=== PATIENT | female | born 1980 | race Caucasian/White ===

== ENCOUNTER 2017-03-06 09:37 | Emergency (ER) | payer MEDICAID, OTHER ==
[~2017-03-06] VITALS: Ht 154.9 cm; Wt 38.4 kg
[~2017-03-06 09:37] MED LIST: FOLI1 PO; LASI20TA PO; LEVE250 PO; METO25TA6 PO; SPIR50 PO; THIA100T PO
[2017-03-06 09:43] VITALS: BP 114/70; PULSE 116; RESP 16; TEMP 98.5; O2SAT 96
[2017-03-06] MEDS ORDERED: ALBU6.7H INH (10:05)
[2017-03-06] MEDS ORDERED: METO25TA3 PO (10:05)
[2017-03-06] MEDS ORDERED: LEVE250T5 PO (10:05)
[2017-03-06] MEDS ORDERED: LIDOCAINE HCL 2% 50 ML VIAL ONE (10:11)
[2017-03-06] MEDS ORDERED: LIDOCAINE 1%/EPINEPHrine 1:100,000 SOLN 20 ML VIAL INFIL ONE (10:15)
[2017-03-06] MEDS ORDERED: BACT800T5 PO (10:29)
[2017-03-06] MEDS ORDERED: ULTR50TA5 PO (10:29)
--- NOTE | 2017-03-06 10:30 | PD ---
HPI . Cyst Chief Complaint: Skin Problem Time Seen by Provider: 10:08 Travel History International Travel<30 days: No Contact w/Intl Traveler<30days: No Traveled to known affect area: No History of Present Illness HPI Patient presents with the chief complaint of a painful cyst on her posterior neck. She states that she has had a small, non-painful cyst on her neck for a long time. It has just become larger and painful in the past week. There is been no spontaneous drainage. She has not been running a fever. She denies any previous past similar event. Pain is constant and aching and rated 6/10. No modifying factors. PFSH Past Medical History Autoimmune Disease: No Anxiety: Yes Depression: No Cancer: No Cardiovascular Problems: Yes Diabetes: No Diminished Hearing: No Endocrine: No Genitourinary: Yes ( ) Hypertension: Yes Immune Disorder: No Kidney Stones: No Musculoskeletal: No Psychiatric: Yes Reproductive: No Respiratory: No Renal Failure: Yes Seizures: Yes Sickle Cell Disease: No Thyroid Disease: No ?: Not LMP: LAST WEEK : 2 Para: 2 Past Surgical History AICD: No Arteriovenous Shunt: No Insulin Pump: No Joint Replacement: No Oral Surgery: Yes Pacemaker: No Tonsillectomy: Yes Other Surgery: Yes Social History Alcohol Use: Yes (6 BEERS DAILY) Tobacco Use: Yes (1/2 PPD) Substance Use: No Allergies-Medications (Allergen,Severity, Reaction): Coded Allergies: Ciprofloxacin (Verified Allergy, Severe, Cramping, 03/06/17) ALSO POSSIBLE SEIZURE Pyridium (Verified Allergy, Severe, CRAMPING, 03/06/17) POSSIBLE SEIZURE Reported Meds & Prescriptions Reported Meds & Active Scripts Active Reported Proventil Hfa 6.7 GM Inh (Albuterol Sulfate) 90 Mcg/Act Aer 1 Puff INH Q4H PRN Metoprolol Tartrate 25 Mg Tab 25 Mg PO DAILY Levetiracetam 250 Mg Tab 250 Mg PO BID Review of Systems Except as stated in HPI: all other systems reviewed are Neg General / Constitutional: No: Fever, Chills Gastrointestinal: No: Nausea, Vomiting Skin: Positive Change in Pigmentation, Positive Lesions Physical Exam Narrative GENERAL: Awake and alert and in no acute distress. SKIN: Warm and dry. She has a fluctuant area on the posterior neck which is about the size of a quarter. Very tender. The surrounding skin is not red or hot. HEAD: Atraumatic. Normocephalic. EYES: Pupils equal and round. NECK: Trachea midline. CARDIOVASCULAR: Regular rate and rhythm. RESPIRATORY: No accessory muscle use. MUSCULOSKELETAL: No obvious deformities. No edema. NEUROLOGICAL: Awake and alert. No obvious cranial nerve deficits. Motor grossly within normal limits. Normal speech. PSYCHIATRIC: Appropriate mood and affect; insight and judgment normal. Data Data Last Documented VS Vital Signs Date Time Temp Pulse Resp B/P Pulse Ox O2 Delivery O2 Flow Rate FiO2 03/06/17 09:43 98.5 116 16 114/70 96 Orders Lidocai-Epi 1%-1:100,000 Inj (Xylocaine- (03/06/17 10:15) Lidocaine 2% Inj (Xylocaine 2% Inj) (03/06/17 10:11) [facility] Medical Decision Making Medical Screen Exam Complete: Yes Emergency Medical Condition: Yes Differential Diagnosis My differential diagnosis closed but is not limited to abscess, cyst, lipoma Narrative Course This patient presents with a painful, swollen area on her neck. Her exam is compatible with an abscess. It will be I&Ded. She will subsequently be discharged on Bactrim and Ultram. Instructed to return here in 2 days for recheck. Procedures Procedure Narrative INCISION AND DRAINAGE OF ABSCESS: The area was prepped and was sterilely draped. A subcutaneous wheal of 2 % Xylocaine without epi with a total number to mL was used to anesthetize the area properly. A number 11 scalpel was used to make a 1-cm incision across the area of the abscess. The abscess was drained , complex loculations were broken down, and irrigated with normal saline. Quarter inch iodoform packing was placed in the wound. Sterile dressing applied. Patient advised to have packing removed in two days. Diagnosis Primary Impression: Abscess Patient Instructions: Abscess Incision and Drainage (DC), General Instructions Additional Instructions: Return in 2 days for removal of the packing Med/Other Pt SpecificInfo: Prescription(s) given Scripts Tramadol (Ultram)50 Mg Tab50 Mg PO Q4H PRN (PAIN) #12 TAB Ref 0 Prov:Linda Hoover MD 03/06/17 Sulfamethoxazole-Trimethoprim (Bactrim DS)800-160 Mg Tab1 Tab PO BID #20 TAB Ref 0 Prov:Linda Hoover MD 03/06/17 Disposition: 01 DISCHARGE HOME Condition: Stable Linda Hoover MD Mar 06, 2017 10:30
== END 2017-03-06 10:39 | disposition home or self-care (01) ==
LOC: PHED 09:37 → PHEFT 10:39
DX: L02.11 Cutaneous abscess of neck (principal)
CPT/HCPCS: 10061

== ENCOUNTER 2017-03-08 12:31 | Emergency (ER) | payer MEDICAID ==
[~2017-03-08] VITALS: Ht 154.9 cm; Wt 38.9 kg
[~2017-03-08 12:31] MED LIST changes: +ALBU6.7H INH; +BACT800T5 PO; +LEVE250T5 PO; +METO25TA3 PO; +ULTR50TA5 PO
[2017-03-08 12:39] VITALS: BP 112/66; PULSE 111; RESP 18; TEMP 98.4; O2SAT 98
--- NOTE | 2017-03-08 12:58 | PD ---
HPI Chief Complaint: Wound/Suture/Staple Re-Check Time Seen by Provider: 12:45 Travel History International Travel<30 days: No Contact w/Intl Traveler<30days: No Traveled to known affect area: No History of Present Illness HPI 37-year-old female presents to the emergency department for packing removal from an abscess on the posterior portion of her neck. She was seen and evaluated in the emergency department 2 days ago where she had an I&D with packing placed. She denies fever or chills since. She denies neck pain or stiffness. No headache. She reports mild pain at the site. No other complaint. PFSH Past Medical History Autoimmune Disease: No Anxiety: Yes Depression: No Cancer: No Cardiovascular Problems: Yes Diabetes: No Diminished Hearing: No Endocrine: No Genitourinary: Yes ( ) Hypertension: Yes Immune Disorder: No Kidney Stones: No Musculoskeletal: No Psychiatric: Yes Reproductive: No Respiratory: No Renal Failure: Yes Seizures: Yes Sickle Cell Disease: No Thyroid Disease: No ?: Not : 2 Para: 2 Past Surgical History AICD: No Arteriovenous Shunt: No Insulin Pump: No Joint Replacement: No Oral Surgery: Yes Pacemaker: No Tonsillectomy: Yes Other Surgery: Yes Social History Alcohol Use: Yes (6 BEERS DAILY) Tobacco Use: Yes (1/2 PPD) Substance Use: No Allergies-Medications (Allergen,Severity, Reaction): Coded Allergies: Ciprofloxacin (Verified Allergy, Severe, Cramping, 03/08/17) ALSO POSSIBLE SEIZURE Pyridium (Verified Allergy, Severe, CRAMPING, 03/08/17) POSSIBLE SEIZURE Reported Meds & Prescriptions Reported Meds & Active Scripts Active Ultram (Tramadol HCl) 50 Mg Tab 50 Mg PO Q4H PRN Bactrim DS (Sulfamethoxazole-Trimethoprim) 800-160 Mg Tab 1 Tab PO BID Reported Proventil Hfa 6.7 GM Inh (Albuterol Sulfate) 90 Mcg/Act Aer 1 Puff INH Q4H PRN Metoprolol Tartrate 25 Mg Tab 25 Mg PO DAILY Levetiracetam 250 Mg Tab 250 Mg PO BID Review of Systems Except as stated in HPI: all other systems reviewed are Neg General / Constitutional: No: Fever Eyes: No: Visual changes HENT: No: Headaches Cardiovascular: No: Chest Pain or Discomfort Respiratory: No: Shortness of Breath Gastrointestinal: No: Abdominal Pain Genitourinary: No: Dysuria Physical Exam Narrative GENERAL: Well-nourished, well-developed patient. SKIN: Focused skin assessment warm/dry. 1 cm incision to the posterior neck at the site of previous abscess. There is no surrounding erythema or induration. No current drainage. HEAD: Normocephalic. EYES: No scleral icterus. No injection or drainage. NECK: Supple, trachea midline. No JVD or lymphadenopathy. Full painless range of motion. No cervical midline tenderness. CARDIOVASCULAR: Regular rate and rhythm without murmurs, gallops, or rubs. RESPIRATORY: Breath sounds equal bilaterally. No accessory muscle use. GASTROINTESTINAL: Abdomen soft, non-tender, nondistended. MUSCULOSKELETAL: No cyanosis, or edema. BACK: Nontender without obvious deformity. No CVA tenderness. Data Data Last Documented VS Vital Signs Date Time Temp Pulse Resp B/P Pulse Ox O2 Delivery O2 Flow Rate FiO2 03/08/17 12:39 98.4 111 18 112/66 98 MDM Medical Decision Making Medical Screen Exam Complete: Yes Emergency Medical Condition: Yes Differential Diagnosis Wound recheck, packing removal, abscess Narrative Course 37-year-old female here for packing removal status post I&D of abscess on posterior neck 2 days ago. Patient reports no fever or chills. She reports pain improvement since I&D. She has no neck stiffness or headache. The packing was removed from the abscess which appears to be healing. Sterile dressing placed. Patient is instructed to continue antibiotics and follow up with PCP Diagnosis Primary Impression: Abscess packing removal Referrals: Primary Care Physician Additional Instructions: Continue the antibiotics as prescribed. Follow-up with her primary care doctor. Return to emergency department if he developed new or worsening symptoms such as fever, chills, severe increasing pain. Disposition: 01 DISCHARGE HOME Condition: Stable oJ Lucero Mar 08, 2017 12:58
== END 2017-03-08 13:10 | disposition home or self-care (01) ==
LOC: PHEFT 12:31
DX: L02.11 Cutaneous abscess of neck (principal); Z48.01 Encounter for change or removal of surgical wound dressing
CPT/HCPCS: 99281

== ENCOUNTER 2017-06-20 09:57 | Emergency (ER) | payer MEDICAID ==
[2017-06-20] VITALS (9 sets, daily range): BP systolic 95–126; BP diastolic 60–78; PULSE 66–110; RESP 16–18; TEMP 98.1; O2SAT 97–100
[~2017-06-20] VITALS: Ht 154.9 cm; Wt 39.0 kg
[~2017-06-20 09:57] MED LIST changes: -BACT800T5 PO; +DILA4TAB10 PO; -FOLI1 PO; -LASI20TA PO; -LEVE250 PO; +LORA-392 PO; -METO25TA3 PO; -METO25TA6 PO; +POTA-163 PO; -SPIR50 PO; -THIA100T PO; -ULTR50TA5 PO
[2017-06-20] MEDS ORDERED: SODIUM CHLOR 0.9% 1000 ML INJ 1,000 ML IV SCH ×2 (11:09→13:00)
[2017-06-20] MEDS ORDERED: KETOROLAC TROMETHAMINE 30 MG/ML (IVP) VIAL IVP ONE (11:15)
[2017-06-20] MEDS ORDERED: ONDANSETRON HCL 4 MG/2 ML VIAL IVP ONE (11:15)
[2017-06-20] MEDS ORDERED: MORPHINE SULFATE 8 MG/ML INJ IV PUSH ONE (11:15)
[2017-06-20] MEDS ORDERED: SODIUM CHLORIDE 0.9% FLUSH 10 ML FLUSH IV FLUSH PRN (11:15)
[2017-06-20] MEDS ORDERED: FAMOTIDINE 20 MG/2 ML VIAL IV PUSH ONE (11:15)
--- NOTE | 2017-06-20 11:18 | PD ---
HPI Chief Complaint: Abdominal Pain Time Seen by Provider: 10:57 Travel History International Travel<30 days: No Contact w/Intl Traveler<30days: No Traveled to known affect area: No History of Present Illness HPI The patient is a 37 year female who presents emergency department for epigastric abdominal pain. The patient was recently admitted to the hospital in May for pancreatitis secondary to alcohol abuse. The patient was in the hospital for several days and was subsequently discharged home. Patient notes intermittent epigastric abdominal pain that radiates to the back. The patient states this episode of pain started 2 days ago, slightly improved yesterday, however, returned today. The pain is sharp, burning, located in epigastrium, and radiating to the back. She does complain of nausea with some dry heaves as well as a few episodes of diarrhea. She denies any fever, chills, or sweats. She does complain of dark-colored urine which is reddish to brown. She denies any dysuria, frequency, or urgency. She has not followed up with a primary physician since she was discharged from the hospital. Symptoms are moderate without any alleviating or exacerbating factors. PFSH Past Medical History Autoimmune Disease: No Anxiety: Yes Depression: No Cancer: No Cardiovascular Problems: Yes Diabetes: No Diminished Hearing: No Endocrine: No Hypertension: Yes Immune Disorder: No Kidney Stones: No Musculoskeletal: No Psychiatric: Yes Reproductive: No Respiratory: No Renal Failure: Yes Seizures: Yes (2013) Sickle Cell Disease: No Thyroid Disease: No : 2 Para: 2 Past Surgical History AICD: No Arteriovenous Shunt: No Insulin Pump: No Joint Replacement: No Oral Surgery: Yes Pacemaker: No Tonsillectomy: Yes Other Surgery: Yes Social History Alcohol Use: Yes (6 BEERS DAILY) Tobacco Use: Yes (08/20 PPD) Substance Use: Yes (marijuana) Allergies-Medications (Allergen,Severity, Reaction): Coded Allergies: ciprofloxacin (Unverified Allergy, Severe, Cramping, 06/20/17) ALSO POSSIBLE SEIZURE phenazopyridine (Unverified Allergy, Severe, CRAMPING, 06/20/17) POSSIBLE SEIZURE Reported Meds & Prescriptions Reported Meds & Active Scripts Active Potassium Chloride ER (Potassium Chloride) 20 Meq Tab 20 Meq PO DAILY Reported Proventil Hfa 6.7 GM Inh (Albuterol Sulfate) 90 Mcg/Act Aer 1 Puff INH Q4H PRN Levetiracetam 250 Mg Tab 250 Mg PO BID Review of Systems Except as stated in HPI: all other systems reviewed are Neg General / Constitutional: No: Fever Cardiovascular: No: Chest Pain or Discomfort Respiratory: No: Shortness of Breath Gastrointestinal: Positive: Nausea, Vomiting, Abdominal Pain, No: Diarrhea Genitourinary: Positive: Other (dark-colored urine) Skin: No Itching Physical Exam Narrative GENERAL: Awake, alert, pleasant 37-year-old female who appears her stated age and is in no acute respiratory distress. SKIN: Focused skin assessment warm/dry. HEAD: Atraumatic. Normocephalic. EYES: Bilateral icterus. ENT: No nasal bleeding or discharge. Mucous membranes pink and moist. NECK: Trachea midline. No JVD. CARDIOVASCULAR: Regular rate and rhythm. No murmur appreciated. RESPIRATORY: No accessory muscle use. Clear to auscultation. Breath sounds equal bilaterally. GASTROINTESTINAL: Abdomen soft, slightly distended, tender in the epigastrium. No guarding or rigidity. MUSCULOSKELETAL: No obvious deformities. No clubbing. No cyanosis. No edema. NEUROLOGICAL: Awake and alert. No obvious cranial nerve deficits. Motor grossly within normal limits. Normal speech. PSYCHIATRIC: Appropriate mood and affect; insight and judgment normal. Data Data Last Documented VS Vital Signs Date Time Temp Pulse Resp B/P (MAP) Pulse Ox O2 Delivery O2 Flow Rate FiO2 06/20/17 11:19 16 117/78 (91) 100 Room Air 06/20/17 10:06 98.1 110 Orders Orders Complete Blood Count With Diff (06/20/17 11:09) Comprehensive Metabolic Panel (06/20/17 11:09) Lipase (06/20/17 11:09) Lactic Acid (06/20/17 11:09) Iv Access Insert/Monitor (06/20/17 11:09) Ecg Monitoring (06/20/17 11:09) Oximetry (06/20/17 11:09) Ondansetron Inj (Zofran Inj) (06/20/17 11:15) Sodium Chlor 0.9% 1000 Ml Inj (Ns 1000 M (06/20/17 11:09) Sodium Chloride 0.9% Flush (Ns Flush) (06/20/17 11:15) Famotidine Inj (Pepcid Inj) (06/20/17 11:15) Ketorolac Inj (Toradol Inj) (06/20/17 11:15) Morphine Inj (Morphine Inj) (06/20/17 11:15) Potassium Chloride Eff (K-Lyte Cl Eff) (06/20/17 12:15) Potassium Chlor 20 Meq Premix (Kcl 20 Me (06/20/17 12:15) Magnesium (Mg) (06/20/17 12:15) Sodium Chlor 0.9% 1000 Ml Inj (Ns 1000 M (06/20/17 13:00) Magnesium Sulfate 1 Gm Premix (Magnesium (06/20/17 13:00) Ed Discharge Order (06/20/17 12:48) Labs Laboratory Tests Test 06/20/17 11:37 White Blood Count 14.3 TH/MM3 Red Blood Count 2.92 MIL/MM3 Hemoglobin 10.2 GM/DL Hematocrit 29.3 % Mean Corpuscular Volume 100.3 FL Mean Corpuscular Hemoglobin 35.0 PG Mean Corpuscular Hemoglobin Concent 34.9 % Red Cell Distribution Width 28.4 % Platelet Count 88 TH/MM3 Mean Platelet Volume 9.6 FL CBC Comment AUTO DIFF Differential Total Cells Counted 100 Neutrophils % (Manual) 89 % Band Neutrophils % 5 % Lymphocytes % 4 % Monocytes % 2 % Neutrophils # (Manual) 13.4 TH/MM3 Differential Comment FINAL DIFF MANUAL Platelet Estimate LOW Platelet Morphology Comment NORMAL Target Cells 2+ Blood Urea Nitrogen 3 MG/DL Creatinine 0.21 MG/DL Random Glucose 81 MG/DL Total Protein 5.9 GM/DL Albumin 2.0 GM/DL Calcium Level 7.8 MG/DL Alkaline Phosphatase 310 U/L Aspartate Amino Transf (AST/SGOT) 110 U/L Alanine Aminotransferase (ALT/SGPT) 26 U/L Total Bilirubin 5.6 MG/DL Sodium Level 133 MEQ/L Potassium Level 2.5 MEQ/L Chloride Level 91 MEQ/L Carbon Dioxide Level 30.0 MEQ/L Anion Gap 12 MEQ/L Estimat Glomerular Filtration Rate 380 ML/MIN Lactic Acid Level 0.8 mmol/L Magnesium Level 1.4 MG/DL Lipase 560 U/L MDM Medical Decision Making Medical Screen Exam Complete: Yes Emergency Medical Condition: Yes Medical Record Reviewed: Yes Interpretation(s) Laboratory Tests Test 06/20/17 11:37 White Blood Count 14.3 TH/MM3 Red Blood Count 2.92 MIL/MM3 Hemoglobin 10.2 GM/DL Hematocrit 29.3 % Mean Corpuscular Volume 100.3 FL Mean Corpuscular Hemoglobin 35.0 PG Mean Corpuscular Hemoglobin Concent 34.9 % Red Cell Distribution Width 28.4 % Platelet Count 88 TH/MM3 Mean Platelet Volume 9.6 FL CBC Comment AUTO DIFF Blood Urea Nitrogen 3 MG/DL Creatinine 0.21 MG/DL Random Glucose 81 MG/DL Total Protein 5.9 GM/DL Albumin 2.0 GM/DL Calcium Level 7.8 MG/DL Alkaline Phosphatase 310 U/L Aspartate Amino Transf (AST/SGOT) 110 U/L Alanine Aminotransferase (ALT/SGPT) 26 U/L Total Bilirubin 5.6 MG/DL Sodium Level 133 MEQ/L Potassium Level 2.5 MEQ/L Chloride Level 91 MEQ/L Carbon Dioxide Level 30.0 MEQ/L Anion Gap 12 MEQ/L Estimat Glomerular Filtration Rate 380 ML/MIN Lactic Acid Level 0.8 mmol/L Lipase 560 U/L Differential Diagnosis Differential diagnosis includes pancreatitis, alcohol abuse, which led abnormality, gastritis, peptic ulcer disease, chronic hepatitis, GERD, esophagitis. Narrative Course IV was established, labs are drawn and sent, and the patient was placed on cardiac telemetry monitoring and continuous pulse oximetry monitoring. The patient was administer morphine, Zofran, Pepcid, and IV fluids. Lipase level was sent to lab. The lipase level is elevated in the 500s, however, significantly improved from her previous hospitalizations. LFTs are elevated, but also improving when compared to previous hospitalizations. The bilirubin is still elevated at 5.6, but once again has been improving since her previous hospitalization. The patient's potassium is low at 2.5, was replaced orally and intravenously. A magnesium level was also ordered to evaluate for possible need of replacement. The patient was redosed with pain medication. The patient 's lipase is less than 1000, patient's pain will be controlled and she will be discharged home and advised to follow-up with a primary physician. The patient' s hemoglobin is 10.2, is also improved since previous hospitalization. The patient is advised to continue her alcohol cessation. Diagnosis Primary Impression: Pancreatitis Qualified Codes: K85.90 - Acute pancreatitis without necrosis or infection, unspecified Additional Impressions: Elevated LFTs Hypokalemia Patient Instructions: General Instructions Additional Instructions: Medications as directed. Clear liquid diet and advance as tolerated. Follow- up with gastroenterology. Please provide a patient a copy of her labs at discharge. Return if symptoms worsen or progress. Med/Other Pt SpecificInfo: Prescription(s) given Scripts Hydrocodone-Acetaminophen ([place]) 5-325 mg Tab 1 TAB PO Q6H Y for PAIN, #12 TAB 0 Refills Prov: Leodan Cagle MD 06/20/17 Promethazine (Phenergan) 25 Mg Tablet 25 MG PO Q6H Y for NAUSEA OR VOMITING, #10 TAB 0 Refills Prov: Leodan Cagle MD 06/20/17 Potassium Chloride ER (K-Tab) 20 Meq Tab 20 MEQ PO BID for Electrolyte Replacement for 3 Days, #6 TAB 0 Refills Prov: Leodan Cagle MD 06/20/17 Disposition: 01 DISCHARGE HOME Condition: Stable Leodan Cagle MD Jun 20, 2017 11:18
[2017-06-20 11:49] LABS: HEMATOCRIT 29.3 % (35.0-46.0); MEAN CELL VOLUME 100.3 FL (80.0-100.0); MEAN CORPUSCULAR HGB CONC 34.9 % (32.0-36.0); PLATELET COUNT 88 TH/MM3 (150-450); RED BLOOD COUNT 2.92 MIL/MM3 (4.00-5.30); RED CELL DISTRIBUTION WIDTH 28.4 % (11.6-17.2); WHITE BLOOD COUNT 14.3 TH/MM3 (4.0-11.0)
[2017-06-20 11:52] LABS: HEMO FLAGS AUTO DIFF
[2017-06-20 12:09] LABS: ALKALINE PHOSPHATASE 310 U/L (45-117); ALT (GPT) 26 U/L (10-53); ANION GAP 12 MEQ/L (5-15); AST (GOT) 110 U/L (15-37); BLOOD UREA NITROGEN 3 MG/DL (7-18); CHLORIDE 91 MEQ/L (98-107); GLOMERULAR FILTRATION RATE 380 ML/MIN (>89); SODIUM (NA) 133 MEQ/L (136-145); TOTAL BILIRUBIN ADULT 5.6 MG/DL (0.2-1.0)
[2017-06-20 12:12] LABS: POTASSIUM 2.5 MEQ/L (3.5-5.1)
[2017-06-20] MEDS ORDERED: POTASSIUM CHLORIDE 25 MEQ EFFERVESCENT TAB PO ONE (12:15)
[2017-06-20 12:19] LABS: BANDS 5 % (0-6); NEUTROPHIL # MANUAL DIFF 13.4 TH/MM3 (1.8-7.7); POLYS (SEG NEUTROPHILS) 89 % (16-70); WBC DIFF SAMPLE 100
[2017-06-20 12:20] LABS: TARGET CELLS 2+ (NORMAL)
[2017-06-20 12:21] LABS: PLATELET ESTIMATE SMEAR LOW (NORMAL); PLATELET MORPHOLOGY NORMAL (NORMAL); SCAN/DIFF FINAL DIFF MANUAL
[2017-06-20] MEDS ORDERED: POTA1TAB4 PO (12:49)
[2017-06-20] MEDS ORDERED: PROM25TA10 PO (12:50)
[2017-06-20] MEDS ORDERED: NORC5TAB PO (12:50)
[2017-06-20] MEDS ORDERED: MAGNESIUM SULFATE 1 GM PREMIX 100 ML IV ONE (13:00)
[2017-06-20] MEDS: POTASSIUM CHLOR 20 MEQ PREMIX 100 ML IV SCH ×2 (13:31→15:52)
[2017-06-20] MEDS ORDERED: HYDROmorphone HCL PF 0.5 MG/0.5 ML SYRINGE IV PUSH ONE ×2 (13:45→18:45)
== END 2017-06-20 20:19 | disposition home or self-care (01) ==
LOC: PHED 09:57
DX: K85.90 Acute pancreatitis without necrosis or infection, unspecified (principal); R79.89 Other specified abnormal findings of blood chemistry; E87.6 Hypokalemia; F17.200 Nicotine dependence, unspecified, uncomplicated
CPT/HCPCS: 80053; 83605; 83690; 83735; 85007; 85027; 96361; 96365; 96366; 96367; 96375; 96376; 99284; J1170; J1885; J2270; J2405; J3475; J3480; J7030

== ENCOUNTER 2017-07-02 04:30 | Inpatient (IN) | payer MEDICAID ==
[2017-07-02] VITALS (9 sets, daily range): BP systolic 99–118; BP diastolic 64–78; PULSE 68–115; RESP 15–20; TEMP 96–97.8; O2SAT 98–100
[~2017-07-02] VITALS: Ht 154.9 cm; Wt 39.7 kg
[~2017-07-02 04:30] MED LIST changes: +NORC5TAB PO; +POTA1TAB4 PO; +PROM25TA10 PO
--- NOTE | 2017-07-02 04:35 | PD ---
HPI Chief Complaint: abdominal pain Time Seen by Provider: 04:35 Travel History International Travel<30 days: No Contact w/Intl Traveler<30days: No Traveled to known affect area: No History of Present Illness HPI 37-year-old female came to the emergency room in severe distress with history of abdominal pain and vomiting that has been going on for past 1 week. Patient was admitted at [facility] in [place] for 2 days for pancreatitis. She was just discharged 2 days ago and went to see her primary care yesterday since her abdominal pain and vomiting continued. As per her her primary care wanted her to go to the emergency room to be seen again. Patient has history of pancreatitis and used to be an alcoholic. However she says she has not drank alcohol since June 07 of this year. Vital signs were otherwise within acceptable limits. She pointed to her entire abdomen for pain. She says and [place] she had CAT scan and ultrasound done of her abdomen. [facility] Past Medical History Narrative Medical List of her past medical, surgical, social and family history is reviewed from the nursing note. Autoimmune Disease: No Anxiety: Yes Depression: No Cancer: No Cardiovascular Problems: Yes Diabetes: No Diminished Hearing: No Endocrine: No Heparin Induced Thrombocytopen: No Hypertension: Yes Immune Disorder: No Kidney Stones: No Musculoskeletal: No Psychiatric: Yes Reproductive: No Respiratory: No Renal Failure: Yes Seizures: Yes (2013) Sickle Cell Disease: No Thyroid Disease: No : 2 Para: 2 Past Surgical History AICD: No Arteriovenous Shunt: No Insulin Pump: No Joint Replacement: No Oral Surgery: Yes Pacemaker: No Tonsillectomy: Yes Other Surgery: Yes Social History Alcohol Use: Yes (6 BEERS DAILY/QUIT 06/06/17) Tobacco Use: Yes (1/2 PPD) Substance Use: Yes (marijuana) Allergies-Medications (Allergen,Severity, Reaction): Coded Allergies: ciprofloxacin (Unverified Allergy, Severe, Cramping, 07/02/17) ALSO POSSIBLE SEIZURE phenazopyridine (Unverified Allergy, Severe, CRAMPING, 07/02/17) POSSIBLE SEIZURE Comments List of her allergies are reviewed from the nursing note. Reported Meds & Prescriptions Reported Meds & Active Scripts Active Phenergan (Promethazine HCl) 25 Mg Tablet 25 Mg PO Q6H PRN Potassium Chloride ER (Potassium Chloride) 20 Meq Tab 20 Meq PO DAILY Reported Proventil Hfa 6.7 GM Inh (Albuterol Sulfate) 90 Mcg/Act Aer 1 Puff INH Q4H PRN Levetiracetam 250 Mg Tab 250 Mg PO BID Narrative Medication List of her home medications reviewed from the nursing note. Review of Systems Except as stated in HPI: all other systems reviewed are Neg Gastrointestinal: Positive: Nausea, Vomiting, Abdominal Pain Physical Exam Narrative GENERAL: Awake, alert, significant distress, anxious, emaciated SKIN: Focused skin assessment warm/dry. Pale, disheveled HEAD: Atraumatic. Normocephalic. EYES: Pupils equal and round. No scleral icterus. No injection or drainage. ENT: No nasal bleeding or discharge. Mucous membranes pink and moist. NECK: Trachea midline. No JVD. CARDIOVASCULAR: Regular rate and rhythm. No murmur appreciated. RESPIRATORY: No accessory muscle use. Clear to auscultation. Breath sounds equal bilaterally. GASTROINTESTINAL: Abdomen soft, non-tender, nondistended. Hepatic and splenic margins not palpable. MUSCULOSKELETAL: No obvious deformities. No clubbing. No cyanosis. No edema. NEUROLOGICAL: Awake and alert. No obvious cranial nerve deficits. Motor grossly within normal limits. Normal speech. PSYCHIATRIC: Appropriate mood and affect; insight and judgment normal. Data Data Last Documented VS Vital Signs Date Time Temp Pulse Resp B/P (MAP) Pulse Ox O2 Delivery O2 Flow Rate FiO2 07/02/17 05:09 95 20 107/69 (82) 100 Room Air 07/02/17 04:44 97.8 Orders Orders Complete Blood Count With Diff (07/02/17 04:40) Comprehensive Metabolic Panel (07/02/17 04:40) Lipase (07/02/17 04:40) Iv Access Insert/Monitor (07/02/17 04:40) Ecg Monitoring (07/02/17 04:40) Oximetry (07/02/17 04:40) Morphine Inj (Morphine Inj) (07/02/17 04:45) Sodium Chlor 0.9% 1000 Ml Inj (Ns 1000 M (07/02/17 04:40) Sodium Chloride 0.9% Flush (Ns Flush) (07/02/17 04:45) Metoclopramide Inj (Reglan Inj) (07/02/17 04:45) Potassium Chlor 10 Meq Premix (Kcl 10 Me (07/02/17 06:00) Labs Laboratory Tests Test 07/02/17 04:43 White Blood Count 14.3 TH/MM3 Red Blood Count 3.36 MIL/MM3 Hemoglobin 11.6 GM/DL Hematocrit 34.9 % Mean Corpuscular Volume 104.0 FL Mean Corpuscular Hemoglobin 34.7 PG Mean Corpuscular Hemoglobin Concent 33.4 % Red Cell Distribution Width 22.7 % Platelet Count 342 TH/MM3 Mean Platelet Volume 8.1 FL CBC Comment AUTO DIFF Blood Urea Nitrogen 1 MG/DL Creatinine 0.36 MG/DL Random Glucose 88 MG/DL Total Protein 7.8 GM/DL Albumin 2.3 GM/DL Calcium Level 8.5 MG/DL Alkaline Phosphatase 344 U/L Aspartate Amino Transf (AST/SGOT) 183 U/L Alanine Aminotransferase (ALT/SGPT) 24 U/L Total Bilirubin 2.3 MG/DL Sodium Level 134 MEQ/L Potassium Level 3.2 MEQ/L Chloride Level 101 MEQ/L Carbon Dioxide Level 20.3 MEQ/L Anion Gap 13 MEQ/L Estimat Glomerular Filtration Rate 204 ML/MIN Lipase 1170 U/L [facility] Medical Decision Making Medical Screen Exam Complete: Yes Emergency Medical Condition: Yes Medical Record Reviewed: Yes Differential Diagnosis Acute pancreatitis, dehydration Narrative Course 5:57 AM blood test results are back. Patient has some leukocytosis which does not look different from her white blood cell count about one week ago. However her lipase is elevated. Her potassium is slightly low and I have ordered for placement. Patient is getting IV fluid bolus, pain medication as well as IV Reglan. I decided to admit her. Awaiting for the hospitalist to call back. Procedures EKG Prior to Arrival: No Diagnosis Primary Impression: Acute pancreatitis Qualified Codes: K85.90 - Acute pancreatitis without necrosis or infection, unspecified Additional Impressions: Dehydration Elevated liver function tests Admitting Information Admitting Physician Requests: it Trina Lennon MD Jul 02, 2017 04:35
[2017-07-02] MEDS ORDERED: MORPHINE SULFATE 4 MG/ML INJ IV PUSH ONE (04:45)
[2017-07-02] MEDS ORDERED: METOCLOPRAMIDE HCL 10 MG/2 ML VIAL IV PUSH ONE (04:45)
[2017-07-02] MEDS ORDERED: SODIUM CHLORIDE 0.9% FLUSH 10 ML FLUSH IV FLUSH PRN (04:45)
[2017-07-02] MEDS: SODIUM CHLOR 0.9% 1000 ML INJ 1,000 ML IV SCH ×2 (04:51→06:28)
[2017-07-02 04:58] LABS: HEMATOCRIT 34.9 % (35.0-46.0); MEAN CORPUSCULAR HEMOGLOBIN 34.7 PG (27.0-34.0); MEAN CORPUSCULAR HGB CONC 33.4 % (32.0-36.0); PLATELET COUNT 342 TH/MM3 (150-450); RED BLOOD COUNT 3.36 MIL/MM3 (4.00-5.30); RED CELL DISTRIBUTION WIDTH 22.7 % (11.6-17.2); WHITE BLOOD COUNT 14.3 TH/MM3 (4.0-11.0)
[2017-07-02 05:10] LABS: CHLORIDE 101 MEQ/L (98-107); POTASSIUM 3.2 MEQ/L (3.5-5.1); SODIUM (NA) 134 MEQ/L (136-145)
[2017-07-02 05:14] LABS: ANION GAP 13 MEQ/L (5-15); BICARBONATE 20.3 MEQ/L (21.0-32.0); BLOOD UREA NITROGEN 1 MG/DL (7-18)
[2017-07-02 05:17] LABS: ALT (GPT) 24 U/L (10-53); AST (GOT) 183 U/L (15-37); GLOMERULAR FILTRATION RATE 204 ML/MIN (>89)
[2017-07-02 05:18] LABS: TOTAL BILIRUBIN ADULT 2.3 MG/DL (0.2-1.0)
[2017-07-02 05:20] LABS: ALKALINE PHOSPHATASE 344 U/L (45-117)
[2017-07-02 05:38] LABS: HEMO FLAGS AUTO DIFF
[2017-07-02 05:55] LABS: BANDS 5 % (0-6); EOSINOPHILS 1 % (0-4); NEUTROPHIL # MANUAL DIFF 11.3 TH/MM3 (1.8-7.7); POLYS (SEG NEUTROPHILS) 74 % (16-70); WBC DIFF SAMPLE 100
[2017-07-02 05:56] LABS: PLATELET ESTIMATE SMEAR NORMAL (NORMAL); PLATELET MORPHOLOGY CLUMPED (NORMAL); SCAN/DIFF FINAL DIFF MANUAL
[2017-07-02] MEDS ORDERED: ACETAMINOPHEN 325 MG TAB PO PRN (06:00)
[2017-07-02] MEDS ORDERED: NALOXONE HCL 0.4 MG/ML AMP IV PUSH PRN (06:00)
[2017-07-02] MEDS ORDERED: POTASSIUM CHLOR 10 MEQ PREMIX 100 ML IV ONE (06:00)
[2017-07-02] MEDS: SODIUM CHLORIDE 0.9% FLUSH 10 ML FLUSH IV FLUSH SCH ×2 (09:20→20:17)
[2017-07-02] MEDS: ONDANSETRON HCL 4 MG/2 ML VIAL IVP PRN ×2 (09:20→16:50)
[2017-07-02 10:22] LABS: MAGNESIUM 1.6 MG/DL (1.5-2.5)
[2017-07-02 10:30] LABS: BETA HCG QUANT LESS THAN 1 MIU/ML (0-5)
[2017-07-02] MEDS: HYDROmorphone HCL PF 0.5 MG/0.5 ML SYRINGE IV PUSH PRN ×3 (11:11→20:16)
[2017-07-02] MEDS ORDERED: DIATRIZOATE MEGLUM/DIATRIZOATE SOD 9 ML CUP PO ONE (14:00)
[2017-07-02] MEDS: POTASSIUM CHLORIDE INJ 10 MEQ in SODIUM CHLOR 0.9% 1000 ML INJ 1,000 ML IV SCH ×2 (15:48→17:03)
[2017-07-02] MEDS ORDERED: ALBUTEROL SULFATE 90 MCG/ACT HFA 8 GM INHALER INH PRN (18:15)
--- NOTE | 2017-07-02 18:15 | HHI.HP ---
[facility] Non-Staff Admission Diagnosis acute pancreatitis, dehydration, elevated LFTs Diagnoses: (1) Abdominal pain Diagnosis: Secondary (2) Acute pancreatitis Diagnosis: Principal Chief Complaint: Abdominal pain Travel History International Travel<30 Days: No Contact w/Intl Traveler <30 Da: No Traveled to Known Affected Are: No History of Present Illness Mrs. Jacobs is a 37-year-old pleasant female patient with a known medical history of pancreatitis and alcohol abuse. Patient states that she was recently hospitalized several days in May for pancreatitis and discharged home. She has continued to have abdominal pain and discomfort ever since. Abdominal pain is located throughout abdomen. Denies any alleviating or aggravating factors. Rates the pain a 7/10 at its worse. She presented to her PCP today who referred her here with transaminase and elevated lipase levels. Patient does admit this pain has been intermittent over the past 3 months. The past few days she has had ongoing nausea with no vomiting and diarrhea since Saturday. Has not been able to consume anything PO since the weekend. Denies any recent fever, chills, chest pain, cough, shortness of breath, or dysuria. She does admit to quitting drinking 06/07/17 of this year. Review of Systems Constitutional: DENIES: Fever, Chills Eyes: DENIES: Blurred vision, Diplopia Respiratory: DENIES: Cough, Shortness of breath Cardiovascular: DENIES: Chest pain, Palpitations Gastrointestinal: COMPLAINS OF: Abdominal pain, Diarrhea, Nausea, Vomiting, DENIES: Black stools, Bloody stools, Constipation Except as stated in HPI: all other systems reviewed are Neg Past Family Social History Past Medical History Anxiety Hypertension History of seizures Past Surgical History Tonsillectomy Reported Medications Active Phenergan (Promethazine HCl) 25 Mg Tablet 25 Mg PO Q6H PRN Potassium Chloride ER (Potassium Chloride) 20 Meq Tab 20 Meq PO DAILY Reported Proventil Hfa 6.7 GM Inh (Albuterol Sulfate) 90 Mcg/Act Aer 1 Puff INH Q4H PRN Levetiracetam 250 Mg Tab 250 Mg PO BID Allergies: Coded Allergies: ciprofloxacin (Unverified Allergy, Severe, Cramping, 07/02/17) ALSO POSSIBLE SEIZURE phenazopyridine (Unverified Allergy, Severe, CRAMPING, 07/02/17) POSSIBLE SEIZURE Active Ordered Medications Current Medications Medications (Trade) Dose Ordered Sig/Victorina Route Start Time Stop Time Status Last Admin Potassium Chloride 10 meq/ Sodium Chloride 1,005 ml @ 100 mls/hr Q10H3M IV 07/02/17 07:00 07/02/17 15:48 (NS Flush) 2 ml UNSCH PRN IV FLUSH 07/02/17 06:00 (NS Flush) 2 ml BID IV FLUSH 07/02/17 09:00 07/02/17 09:20 (Tylenol) 650 mg Q4H PRN PO 07/02/17 06:00 (Zofran Inj) 4 mg Q6H PRN IVP 07/02/17 06:00 07/02/17 16:50 (Narcan Inj) 0.4 mg UNSCH PRN IV PUSH 07/02/17 06:00 (Dilaudid Pf Inj) 0.5 mg Q4H PRN IV PUSH 07/02/17 10:15 07/02/17 15:46 (Roxicodone) 5 mg Q4H PRN PO 07/02/17 10:15 07/02/17 16:47 (Colace) 100 mg BID PO 07/02/17 21:00 Family History Patient is not aware of any significant family medical history. Social History Admits to smoking 1/2 ppd cigarettes per day. States she quit drinking alcohol on 06/07/17, prior to that she drank 6 beers daily. Denies any illicit drug use. Physical Exam Vital Signs Vital Signs Date Time Temp Pulse Resp B/P (MAP) Pulse Ox O2 Delivery O2 Flow Rate FiO2 07/02/17 16:16 18 07/02/17 16:00 96.0 68 15 99/64 (76) 98 07/02/17 13:23 18 07/02/17 12:00 96.9 73 15 110/71 (84) 100 07/02/17 08:00 96.0 80 15 103/77 (86) 100 07/02/17 07:04 07/02/17 06:10 88 20 108/72 (84) 100 07/02/17 05:40 94 20 105/75 (85) 100 07/02/17 05:09 95 20 107/69 (82) 100 Room Air 07/02/17 05:01 20 07/02/17 04:55 102 20 118/78 (91) 100 07/02/17 04:44 97.8 115 18 118/78 (91) 100 Physical Exam GENERAL: This is a well-developed patient, thin appearing female patient, lying in bed comfortably, in no apparent distress. SKIN: No rashes, ecchymoses or lesions. Warm and dry. Mild jaundice noted. HEENT: Atraumatic. Normocephalic. Pupils equal round and reactive. Extraocular motions intact. No scleral icterus. No injection or drainage. Nose without bleeding, purulent drainage or septal hematoma. Throat without erythema, tonsillar hypertrophy or exudate. Uvula midline. Airway patent. NECK: Trachea midline. No JVD. Supple. CARDIOVASCULAR: Regular rate and rhythm without murmurs, gallops, or rubs. RESPIRATORY: Clear to auscultation. Breath sounds equal bilaterally. No wheezes , rales, or rhonchi. GASTROINTESTINAL: Abdomen soft, non-tender, nondistended. No guarding. MUSCULOSKELETAL: Extremities without clubbing, cyanosis, or edema. No joint tenderness, effusion, or edema noted. NEUROLOGICAL: Awake and alert. Cranial nerves II through XII intact. Motor and sensory grossly within normal limits. Five out of 5 muscle strength in all muscle groups. Normal speech. Laboratory Laboratory Tests Test 07/02/17 04:43 White Blood Count 14.3 Red Blood Count 3.36 Hemoglobin 11.6 Hematocrit 34.9 Mean Corpuscular Volume 104.0 Mean Corpuscular Hemoglobin 34.7 Mean Corpuscular Hemoglobin Concent 33.4 Red Cell Distribution Width 22.7 Platelet Count 342 Mean Platelet Volume 8.1 CBC Comment AUTO DIFF Differential Total Cells Counted 100 Neutrophils % (Manual) 74 Band Neutrophils % 5 Lymphocytes % 17 Monocytes % 3 Eosinophils % 1 Neutrophils # (Manual) 11.3 Differential Comment FINAL DIFF MANUAL Platelet Estimate NORMAL Platelet Morphology Comment CLUMPED Blood Urea Nitrogen 1 Creatinine 0.36 Random Glucose 88 Total Protein 7.8 Albumin 2.3 Calcium Level 8.5 Alkaline Phosphatase 344 Aspartate Amino Transf (AST/SGOT) 183 Alanine Aminotransferase (ALT/SGPT) 24 Total Bilirubin 2.3 Sodium Level 134 Potassium Level 3.2 Chloride Level 101 Carbon Dioxide Level 20.3 Anion Gap 13 Estimat Glomerular Filtration Rate 204 Magnesium Level 1.6 Lipase 1170 Human Chorionic Gonadotropin, Quant LESS THAN 1 Result Diagram: 07/02/1744207/02/17442 Capdanielle VTE Risk Assessment Capjacki VTE Risk Assessment: No/Low Risk (score <= 1) Caprini Risk Assessment Model Point Value = 1 Point Value = 2 Point Value = 3 Point Value = 5 Age 41-60 Minor surgery BMI > 25 kg/m2 Swollen legs Varicose veins or History of unexplained or recurrent spontaneous Oral contraceptives or hormone replacement Sepsis (< 1 month) Serious lung disease, including pneumonia (< 1 month) Abnormal pulmonary function Acute myocardial infarction Congestive heart failure (< 1 month) History of inflammatory bowel disease Medical patient at bed rest Age 61-74 Arthroscopic surgery Major open surgery (> 45 min) Laparoscopic surgery (> 45 min) Malignancy Confined to bed (> 72 hours) Immobilizing plaster cast Central venous access Age >= 75 History of VTE Family history of VTE Factor V Leiden Prothrombin [id number] Lupus anticoagulant Anticardiolipin antibodies Elevated serum homocysteine Heparin-induced thrombocytopenia Other congenital or acquired thrombophilia Stroke (< 1 month) Elective arthroplasty Hip, pelvis, or leg fracture Acute spinal cord injury (< 1 month) Prophylaxis Regimen Total Risk Factor Score Risk Level Prophylaxis Regimen 0-1 Low Early ambulation 2 Moderate Order ONE of the following: *Sequential Compression Device (SCD) *Heparin 5000 units SQ BID 3-4 Higher Order ONE of the following medications: *Heparin 5000 units SQ TID *Enoxaparin/Lovenox 40 mg SQ daily (WT < 150 kg, CrCl > 30 mL/min) *Enoxaparin/Lovenox 30 mg SQ daily (WT < 150 kg, CrCl > 10-29 mL/min) *Enoxaparin/Lovenox 30 mg SQ BID (WT < 150 kg, CrCl > 30 mL/min) AND/OR *Sequential Compression Device (SCD) 5 or more Highest Order ONE of the following medications: *Heparin 5000 units SQ TID (Preferred with Epidurals) *Enoxaparin/Lovenox 40 mg SQ daily (WT < 150 kg, CrCl > 30 mL/min) *Enoxaparin/Lovenox 30 mg SQ daily (WT < 150 kg, CrCl > 10-29 mL/min) *Enoxaparin/Lovenox 30 mg SQ BID (WT < 150 kg, CrCl > 30 mL/min) AND *Sequential Compression Device (SCD) Assessment and Plan Assessment and Plan 37-year-old female with: Acute pancreatitis: Epigastric pain associated with nausea. Attributed to alcohol abuse. Lipase 1170. WBC 14.3. Afebrile. - IVF with potassium - NPO for now. CT abdomen/pelvis ordered. Follow. Will advance to clear liquids after CT scan. - Oxycodone and Dilaudid IV as indicated for pain - Recheck CBC, BMP and lipase level in am Elevated LFTs: Likely due to acute pancreatitis from alcohol abuse. Gallbladder ultrasound from 06/07/17 also shows a diffusely enlarged liver with increased echogenicity characteristic of fatty infiltration and/or hepatocellular disease. There is some sludge in the gallbladder. No gallstones or biliary tract obstruction identified. Hypokalemia: Potassium 3.2. - IVF with supplemental K. Repeat BMP in am. Follow. Will restart home potassium supplementation. Alcohol abuse: Patient was counseled on the risks of continued alcohol use including chronic/recurrent pancreatitis and/or irreversible liver disease. Advised to quit. - Has not drank alcohol since 06/07/17. Risk for withdrawal minimal at this time. Continue to monitor. History of Seizures: Continue home Keppra Hypertension, chronic: BP currently controlled. Continue to monitor BP trends. Tobacco abuse: Counseled on cessation. DVT prophylaxis: SCDs. Physician Certification 2 Midnight Certification Type: Admission for Inpatient Services Order for Inpatient Services The services are ordered in accordance with Medicare regulations or non- Medicare payer requirements, as applicable. In the case of services not specified as inpatient-only, they are appropriately provided as inpatient services in accordance with the 2-midnight benchmark. Estimated LOS (days): 2 2 days is the estimated time the patient will need to remain in the hospital, assuming treatment plan goals are met and no additional complications. Post-Hospital Plan: Home Problem Qualifiers (1) Acute pancreatitis: Qualified Codes: K85.90 - Acute pancreatitis without necrosis or infection, unspecified Leigh Mauricio Jul 02, 2017 18:15
[2017-07-02] MEDS: DOCUSATE SODIUM 100 MG CAP PO SCH (20:18)
[2017-07-02] MEDS: levETIRAcetam 250 MG TAB PO SCH (20:19)
[2017-07-02] MEDS ORDERED: IOHEXOL 350 MG/ML 10 ML VIAL (for RAD DIAG) IVCONTRAST ONE (23:18)
--- NOTE | 2017-07-02 23:42 | RADRPT ---
EXAM DATE/TIME: 07/02/2017 23:11 [place] COMPARISON: No previous studies available for comparison. INDICATIONS : Abdominal pain. History of pancreatitis. IV CONTRAST: 100 cc Omnipaque 350 (iohexol) IV ORAL CONTRAST: Prescribed oral contrast ingested. RADIATION DOSE: 4.46 CTDIvol (mGy) MEDICAL HISTORY : Pancreatitis. Hypertension. SURGICAL HISTORY : None. ENCOUNTER: Initial ACUITY: 3 days PAIN SCALE: 4/10 LOCATION: abdomen TECHNIQUE: Volumetric scanning of the abdomen and pelvis was performed. Using automated exposure control and ad justment of the mA and/or kV according to patient size, radiation dose was kept as low as reasonably achievable to obtain optimal diagnostic quality images. DICOM format image data is available electro nically for review and comparison. FINDINGS: LOWER LUNGS: The visualized lower lungs are clear. LIVER: Heterogeneous density without lesion. There is no dilation of the biliary tree. No calcified gallst ones. There is ascites surrounding the liver. SPLEEN: Normal size without lesion. PANCREAS: Within normal limits. KIDNEYS: Normal in size and shape. There is no mass, stone or hydronephrosis. ADRENAL GLANDS: Within normal limits. VASCULAR: There is no aortic aneurysm. BOWEL/MESENTERY: Some scattered areas of wall thickening throughout the abdomen including primarily the ascending colo n. The appendix is normal ABDOMINAL WALL: Within normal limits. RETROPERITONEUM: There is no lymphadenopathy. BLADDER: No wall thickening or mass. REPRODUCTIVE: Within normal limits. IUD. INGUINAL: There is no lymphadenopathy or hernia. MUSCULOSKELETAL: Within normal limits for patient age. CONCLUSION: Very heterogeneous liver without focal mass. Significant ascites throughout the abdomen in the pelvis . Scattered areas of wall thickening particularly the ascending colon. Deion Hogan MD on July 02, 2017 at 23:37 Board Certified Radiologist. This report was verified electronically.
[2017-07-03] MEDS: HYDROmorphone HCL PF 0.5 MG/0.5 ML SYRINGE IV PUSH PRN ×3 (00:19→09:01)
[2017-07-03] MEDS: SODIUM CHLORIDE 0.9% FLUSH 10 ML FLUSH IV FLUSH PRN ×4 (00:19→06:17)
[2017-07-03] MEDS: ONDANSETRON HCL 4 MG/2 ML VIAL IVP PRN ×2 (00:19→06:17)
[2017-07-03] MEDS: POTASSIUM CHLORIDE INJ 10 MEQ in SODIUM CHLOR 0.9% 1000 ML INJ 1,000 ML IV SCH ×2 (01:25→11:44)
[2017-07-03 04:00] VITALS: BP 92/61; PULSE 80; RESP 18; TEMP 97.6; O2SAT 100
[2017-07-03 07:15] LABS: POTASSIUM 3.7 MEQ/L (3.5-5.1)
[2017-07-03 07:44] LABS: BICARBONATE 16.7 MEQ/L (21.0-32.0)
[2017-07-03 08:00] VITALS: BP 98/66; PULSE 66; RESP 14; TEMP 96.7; O2SAT 99
[2017-07-03 08:55] LABS: AUTOMATED NEUTROPHIL # 7.5 TH/MM3 (1.8-7.7); BASOPHIL # 0.1 TH/MM3 (0-0.2); BASOPHIL % 1.3 % (0.0-2.0); EOSINOPHIL # 0.2 TH/MM3 (0-0.4); EOSINOPHIL % 1.9 % (0.0-4.0); HEMATOCRIT 31.4 % (35.0-46.0); LYMPH % 12.6 % (9.0-44.0); LYMPHOCYTE # 1.2 TH/MM3 (1.0-4.8); MEAN CELL VOLUME 105.4 FL (80.0-100.0); MEAN CORPUSCULAR HEMOGLOBIN 33.6 PG (27.0-34.0); MEAN CORPUSCULAR HGB CONC 31.9 % (32.0-36.0); MONO % 6.8 % (0.0-8.0); NEUT % 77.4 % (16.0-70.0); PLATELET COUNT 289 TH/MM3 (150-450); RED BLOOD COUNT 2.98 MIL/MM3 (4.00-5.30); RED CELL DISTRIBUTION WIDTH 22.4 % (11.6-17.2); WHITE BLOOD COUNT 9.7 TH/MM3 (4.0-11.0)
[2017-07-03] MEDS: DOCUSATE SODIUM 100 MG CAP PO SCH (08:57)
[2017-07-03] MEDS: levETIRAcetam 250 MG TAB PO SCH (08:57)
[2017-07-03] MEDS: SODIUM CHLORIDE 0.9% FLUSH 10 ML FLUSH IV FLUSH SCH (08:58)
[2017-07-03] MEDS ORDERED: POTASSIUM CHLORIDE 20 MEQ CONTROLLED RELEASE TAB PO SCH (09:00)
[2017-07-03 09:03] LABS: HEMO FLAGS DIFF FINAL
[2017-07-03] MEDS ORDERED: NICOTINE 7 MG/24 HR PATCH T-DERMAL SCH (10:45)
[2017-07-03] MEDS ORDERED: NICOTINE 14 MG/24 HR PATCH T-DERMAL SCH (10:45)
[2017-07-03 12:00] VITALS: BP 95/66; PULSE 73; RESP 14; TEMP 96.8; O2SAT 100
--- NOTE | 2017-07-03 12:28 | HHI.PR ---
Subjective Remarks pt states pain is improved. mild nausea but no vomiting, but feels very hungry. would like to try to eat. hopeful to go home soon. ambulating w no difficulty in the room Objective Vitals Vital Signs Date Time Temp Pulse Resp B/P (MAP) Pulse Ox O2 Delivery O2 Flow Rate FiO2 07/03/17 08:00 96.7 66 14 98/66 (77) 99 07/03/17 04:00 97.6 80 18 92/61 (71) 100 07/02/17 20:00 97.4 74 20 103/72 (82) 100 07/02/17 17:47 18 07/02/17 16:16 18 07/02/17 16:00 96.0 68 15 99/64 (76) 98 I/O 07/02/17 07/02/17 07/02/17 07/03/17 07/03/17 07/03/17 07:00 15:00 23:00 07:00 15:00 23:00 Intake Total 1000 ml 400 ml 850 ml 1572 ml Balance 1000 ml 400 ml 850 ml 1572 ml Intake Oral 350 ml 480 ml IV Total 1000 ml 400 ml 500 ml 1092 ml # Voids 2 8 4 # Bowel Movements 8 2 Result Diagram: 07/03/17 0845 07/03/17 0620 Imaging Last Impressions Abdomen/Pelvis CT 07/02/17 0000 Signed Impressions: Service Date/Time: Sunday, July 02, 2017 23:11 - CONCLUSION: Very heterogeneous liver without focal mass. Significant ascites throughout the abdomen in the pelvis. Scattered areas of wall thickening particularly the ascending colon. Deion Hogan MD Objective Remarks GENERAL: thin appearing female patient,ambulating in room w no difficulty HEENT: Extraocular motions intact. Airway patent. NECK: Trachea midline. CARDIOVASCULAR: Regular rate and rhythm without murmurs RESPIRATORY: Clear to auscultation. Breath sounds equal bilaterally. No wheezes GASTROINTESTINAL: Abdomen soft, minimal discomfort on palpation, no guarding or rebound MUSCULOSKELETAL: Extremities without edema. NEUROLOGICAL: Awake and alert. Cranial nerves II through XII intact. Motor and sensory grossly within normal limits. Normal speech A/P Problem List: (1) Abdominal pain ICD Code: R10.9 - Unspecified abdominal pain Status: Resolved (2) Acute pancreatitis ICD Code: K85.90 - Acute pancreatitis without necrosis or infection, unspecified Status: Acute Assessment and Plan 37-year-old female with: Acute pancreatitis: Epigastric pain associated with nausea. Attributed to alcohol abuse. Lipase 1170. WBC 14.3. Afebrile. - IVF with potassium - advance diet to low fat diet. - continue pain control w Oxycodone and and only use Dilaudid IV for breathrough - WBC down to 9.7 and lipase now down to 479 Elevated LFTs: Likely due to acute pancreatitis from alcohol abuse. Gallbladder ultrasound from 06/07/17 also shows a diffusely enlarged liver with increased echogenicity characteristic of fatty infiltration and/or hepatocellular disease. There is some sludge in the gallbladder. No gallstones or biliary tract obstruction identified. Hypokalemia: Potassium 3.2 on admission, now resolved. restart home potassium supplementation. Alcohol abuse: Patient was counseled on the risks of continued alcohol use including chronic/recurrent pancreatitis and/or irreversible liver disease. Advised to quit. - Has not drank alcohol since 06/07/17. Risk for withdrawal minimal at this time. Continue to monitor. History of Seizures: Continue home Keppra Hypertension, chronic: BP currently controlled. Continue to monitor BP trends. Tobacco abuse: Counseled on cessation. DVT prophylaxis: SCDs. Discharge Planning anticipate d/c later today if tolerating diet and pain controlled w po meds. Pt agreeable w plan. Problem Qualifiers (1) Acute pancreatitis: Qualified Codes: K85.90 - Acute pancreatitis without necrosis or infection, unspecified Gali Townsend MD Jul 03, 2017 12:28
[2017-07-03] MEDS ORDERED: OXYC-392 PO (16:12)
[2017-07-03] MEDS ORDERED: REMOVE OLD PATCH T-DERMAL SCH (21:00)
== END 2017-07-03 16:42 | disposition home or self-care (01) | DRG 440 ==
LOC: PHED 04:30 → PHEDA 06:01 → PH3B 07:06 → OBSVTOIN 16:50
PROVIDERS: ADMIT Family Medicine; ATTEND Family Medicine
DX: K85.20 Alcohol induced acute pancreatitis without necrosis or infection (principal); R56.9 Unspecified convulsions; K70.0 Alcoholic fatty liver; I10 Essential (primary) hypertension; E87.6 Hypokalemia; F10.20 Alcohol dependence, uncomplicated; F41.9 Anxiety disorder, unspecified; Z88.1 Allergy status to other antibiotic agents; E86.0 Dehydration; F17.210 Nicotine dependence, cigarettes, uncomplicated
CPT/HCPCS: 74177; 80048; 80053; 83690; 83735; 84702; 85007; 85025; 85027; 96361; 96374; 96375; J1170; J2270; J2405; J2765; J3480; J7030; Q9963; Q9967

== ENCOUNTER 2017-07-15 23:51 | Inpatient (IN) | payer MEDICAID ==
[~2017-07-15] VITALS: Ht 154.9 cm; Wt 38.4 kg
[~2017-07-15 23:51] MED LIST changes: -DILA4TAB10 PO; -LORA-392 PO; -NORC5TAB PO; +OXYC-392 PO; -POTA1TAB4 PO
[2017-07-15 23:57] VITALS: BP 114/56; PULSE 122; RESP 22; TEMP 97.7; O2SAT 99
[2017-07-16 00:02] VITALS: BP 114/56; PULSE 122; RESP 18; TEMP 97.7; O2SAT 99
[2017-07-16] MEDS ORDERED: SODIUM CHLOR 0.9% 1000 ML INJ 1,000 ML IV SCH (00:03)
--- NOTE | 2017-07-16 00:07 | PD ---
HPI Chief Complaint: abdominal pain Time Seen by Provider: 00:00 Travel History International Travel<30 days: No Contact w/Intl Traveler<30days: No Traveled to known affect area: No History of Present Illness HPI the patient is a 37-year-old female who presents to the emergency department for nausea, vomiting, and epigastric abdominal pain. The patient states she had 2 alcoholic drinks last night with a friend who is leaving town and then awakened this morning with epigastric abdominal pain, nausea, and vomiting. The patient does have a history of alcohol-induced pancreatitis, states her current symptoms are similar to her previous episodes of pancreatitis. The patient does complain of epigastric abdominal pain that is sharp, burning, nonradiating, and associated with nausea and vomiting. She denies any diarrhea. The patient any fever, chills, or sweats. The patient states she was feeling well, saw her primary physician, Dr. Quiles, one week ago and has another appointment next month. The patient denies any dysuria, frequency, or urgency. Symptoms are moderate, possibly exacerbated by alcohol use, and there are no current alleviating factors. PFSH Past Medical History Autoimmune Disease: No Anxiety: Yes Depression: No Cancer: No Cardiovascular Problems: Yes Diabetes: No Diminished Hearing: No Endocrine: No Gastrointestinal Disorders: Yes (CHRONIC PANCREATITIS) Heparin Induced Thrombocytopen: No Hypertension: Yes Immune Disorder: No Kidney Stones: No Musculoskeletal: No Psychiatric: Yes Reproductive: No Respiratory: No Renal Failure: Yes Seizures: Yes (2013) Sickle Cell Disease: No Thyroid Disease: No : 2 Para: 2 Past Surgical History AICD: No Arteriovenous Shunt: No Insulin Pump: No Joint Replacement: No Oral Surgery: Yes Pacemaker: No Tonsillectomy: Yes Other Surgery: Yes Social History Alcohol Use: Yes (6 BEERS DAILY/QUIT 06/06/17) Tobacco Use: Yes (1/2 PPD) Substance Use: Yes (MARIJUANA) Allergies-Medications (Allergen,Severity, Reaction): Coded Allergies: ciprofloxacin (Unverified Allergy, Severe, Cramping, 07/02/17) ALSO POSSIBLE SEIZURE phenazopyridine (Unverified Allergy, Severe, CRAMPING, 07/02/17) POSSIBLE SEIZURE Reported Meds & Prescriptions Reported Meds & Active Scripts Active Oxycodone (Oxycodone HCl) 5 Mg Tab 5 Mg PO Q4-6H PRN Phenergan (Promethazine HCl) 25 Mg Tablet 25 Mg PO Q6H PRN Potassium Chloride ER (Potassium Chloride) 20 Meq Tab 20 Meq PO DAILY Reported Proventil Hfa 6.7 GM Inh (Albuterol Sulfate) 90 Mcg/Act Aer 1 Puff INH Q4H PRN Levetiracetam 250 Mg Tab 250 Mg PO BID Review of Systems Except as stated in HPI: all other systems reviewed are Neg General / Constitutional: No: Fever Cardiovascular: No: Chest Pain or Discomfort Respiratory: No: Shortness of Breath Gastrointestinal: Positive: Nausea, Vomiting, Abdominal Pain, No: Diarrhea Genitourinary: No: Dysuria Physical Exam Narrative GENERAL: Awake, alert, thin-appearing 37 year-old female who appears her stated age and is in no acute respiratory distress. SKIN: Focused skin assessment warm/dry. HEAD: Atraumatic. Normocephalic. EYES: Pupils equal and round. No scleral icterus. No injection or drainage. ENT: Dry mucous membranes. Breath smells of alcohol. NECK: Trachea midline. No JVD. CARDIOVASCULAR: Regular, tachycardic with a heart rate 115. RESPIRATORY: No accessory muscle use. Clear to auscultation. Breath sounds equal bilaterally. GASTROINTESTINAL: Abdomen soft, tender epigastrium, no guarding or rigidity. MUSCULOSKELETAL: No obvious deformities. No clubbing. No cyanosis. No edema. NEUROLOGICAL: Awake and alert. No obvious cranial nerve deficits. Motor grossly within normal limits. Normal speech. PSYCHIATRIC: Appropriate mood and affect; insight and judgment normal. Data Data Last Documented VS Vital Signs Date Time Temp Pulse Resp B/P (MAP) Pulse Ox O2 Delivery O2 Flow Rate FiO2 07/16/17 00:49 16 07/16/17 00:21 99 07/16/17 00:02 97.7 122 Orders Orders Complete Blood Count With Diff (07/16/17 00:03) Comprehensive Metabolic Panel (07/16/17 00:03) Lipase (07/16/17 00:03) Iv Access Insert/Monitor (07/16/17 00:03) Ecg Monitoring (07/16/17 00:03) Oximetry (07/16/17 00:03) Morphine Inj (Morphine Inj) (07/16/17 00:15) Ondansetron Inj (Zofran Inj) (07/16/17 00:15) Sodium Chlor 0.9% 1000 Ml Inj (Ns 1000 M (07/16/17 00:03) Sodium Chloride 0.9% Flush (Ns Flush) (07/16/17 00:15) Sodium Chlor 0.9% 1000 Ml Inj (Ns 1000 M (07/16/17 00:15) Alcohol (Ethanol) (07/16/17 00:03) Morphine Inj (Morphine Inj) (07/16/17 01:00) Ns + Kcl 20 Meq Inj (Ns + Kcl 20 Meq Inj (07/16/17 01:00) Admit Order (Ed Use Only) (07/16/17 00:56) Labs Laboratory Tests Test 07/16/17 00:20 White Blood Count 12.6 TH/MM3 Red Blood Count 3.06 MIL/MM3 Hemoglobin 10.8 GM/DL Hematocrit 32.9 % Mean Corpuscular Volume 107.8 FL Mean Corpuscular Hemoglobin 35.3 PG Mean Corpuscular Hemoglobin Concent 32.7 % Red Cell Distribution Width 18.0 % Platelet Count 231 TH/MM3 Mean Platelet Volume 7.5 FL Neutrophils (%) (Auto) 68.4 % Lymphocytes (%) (Auto) 23.8 % Monocytes (%) (Auto) 6.5 % Eosinophils (%) (Auto) 0.7 % Basophils (%) (Auto) 0.6 % Neutrophils # (Auto) 8.6 TH/MM3 Lymphocytes # (Auto) 3.0 TH/MM3 Monocytes # (Auto) 0.8 TH/MM3 Eosinophils # (Auto) 0.1 TH/MM3 Basophils # (Auto) 0.1 TH/MM3 CBC Comment AUTO DIFF Differential Comment AUTO DIFF CONFIRMED Platelet Estimate NORMAL Platelet Morphology Comment CLUMPED Blood Urea Nitrogen 4 MG/DL Creatinine 0.39 MG/DL Random Glucose 97 MG/DL Total Protein 8.2 GM/DL Albumin 2.5 GM/DL Calcium Level 8.6 MG/DL Alkaline Phosphatase 491 U/L Aspartate Amino Transf (AST/SGOT) 140 U/L Alanine Aminotransferase (ALT/SGPT) 27 U/L Total Bilirubin 1.3 MG/DL Sodium Level 133 MEQ/L Potassium Level 3.3 MEQ/L Chloride Level 95 MEQ/L Carbon Dioxide Level 27.1 MEQ/L Anion Gap 11 MEQ/L Estimat Glomerular Filtration Rate 186 ML/MIN Lipase 1351 U/L Ethyl Alcohol Level 212 MG/DL [facility] Medical Decision Making Medical Screen Exam Complete: Yes Emergency Medical Condition: Yes Medical Record Reviewed: Yes Interpretation(s) Laboratory Tests Test 07/16/17 00:20 White Blood Count 12.6 TH/MM3 Red Blood Count 3.06 MIL/MM3 Hemoglobin 10.8 GM/DL Hematocrit 32.9 % Mean Corpuscular Volume 107.8 FL Mean Corpuscular Hemoglobin 35.3 PG Mean Corpuscular Hemoglobin Concent 32.7 % Red Cell Distribution Width 18.0 % Platelet Count 231 TH/MM3 Mean Platelet Volume 7.5 FL Neutrophils (%) (Auto) 68.4 % Lymphocytes (%) (Auto) 23.8 % Monocytes (%) (Auto) 6.5 % Eosinophils (%) (Auto) 0.7 % Basophils (%) (Auto) 0.6 % Neutrophils # (Auto) 8.6 TH/MM3 Lymphocytes # (Auto) 3.0 TH/MM3 Monocytes # (Auto) 0.8 TH/MM3 Eosinophils # (Auto) 0.1 TH/MM3 Basophils # (Auto) 0.1 TH/MM3 CBC Comment AUTO DIFF Differential Comment AUTO DIFF CONFIRMED Platelet Estimate NORMAL Platelet Morphology Comment CLUMPED Blood Urea Nitrogen 4 MG/DL Creatinine 0.39 MG/DL Random Glucose 97 MG/DL Total Protein 8.2 GM/DL Albumin 2.5 GM/DL Calcium Level 8.6 MG/DL Alkaline Phosphatase 491 U/L Aspartate Amino Transf (AST/SGOT) 140 U/L Alanine Aminotransferase (ALT/SGPT) 27 U/L Total Bilirubin 1.3 MG/DL Sodium Level 133 MEQ/L Potassium Level 3.3 MEQ/L Chloride Level 95 MEQ/L Carbon Dioxide Level 27.1 MEQ/L Anion Gap 11 MEQ/L Estimat Glomerular Filtration Rate 186 ML/MIN Lipase 1351 U/L Ethyl Alcohol Level 212 MG/DL Differential Diagnosis Differential diagnosis includes pancreatitis, gastritis, peptic ulcer disease, retained biliary stone, alcohol withdrawal, electrolyte abnormality. Narrative Course IV was established, labs are drawn and sent, and the patient was placed on cardiac telemetry monitoring and continuous pulse oximetry monitoring. The patient was administered morphine, Zofran, 2 L of IV fluids. Lipase level was sent to lab. The patient's lipase level was elevated at 1351, consistent with acute alcoholic pancreatitis. Therefore, [facility] were paged for 23 hour observation. The patient is advised to discontinue alcohol consumption. The patient will benefit from IV hydration, pain control, then clear liquid diet and advancing as tolerated. Physician Communication Physician Communication [facility] were paged for 23 hour observation. I discussed the patient with Luba, the mid-level provider working with Dr. Ponce, who agrees with 23 hour observation. Diagnosis Primary Impression: Pancreatitis, alcoholic, acute Qualified Codes: K85.20 - Alcohol induced acute pancreatitis without necrosis or infection Additional Impression: Hypokalemia Admitting Information Admitting Physician Requests: Observation Condition: Stable Leodan Cagle MD Jul 16, 2017 00:07
[2017-07-16] MEDS ORDERED: SODIUM CHLORIDE 0.9% FLUSH 10 ML FLUSH IV FLUSH PRN ×2 (00:15→01:45)
[2017-07-16] MEDS ORDERED: ONDANSETRON HCL 4 MG/2 ML VIAL IVP ONE (00:15)
[2017-07-16] MEDS ORDERED: SODIUM CHLOR 0.9% 1000 ML INJ 1,000 ML IV ONE (00:15)
[2017-07-16] MEDS ORDERED: MORPHINE SULFATE 4 MG/ML INJ IV PUSH ONE (00:15)
[2017-07-16 00:21] VITALS: O2SAT 99
[2017-07-16 00:29] LABS: AUTOMATED NEUTROPHIL # 8.6 TH/MM3 (1.8-7.7); BASOPHIL # 0.1 TH/MM3 (0-0.2); BASOPHIL % 0.6 % (0.0-2.0); EOSINOPHIL # 0.1 TH/MM3 (0-0.4); EOSINOPHIL % 0.7 % (0.0-4.0); HEMATOCRIT 32.9 % (35.0-46.0); LYMPH % 23.8 % (9.0-44.0); MEAN CELL VOLUME 107.8 FL (80.0-100.0); MEAN CORPUSCULAR HEMOGLOBIN 35.3 PG (27.0-34.0); MEAN CORPUSCULAR HGB CONC 32.7 % (32.0-36.0); MONO % 6.5 % (0.0-8.0); NEUT % 68.4 % (16.0-70.0); PLATELET COUNT 231 TH/MM3 (150-450); RED BLOOD COUNT 3.06 MIL/MM3 (4.00-5.30); WHITE BLOOD COUNT 12.6 TH/MM3 (4.0-11.0)
[2017-07-16 00:36] LABS: CHLORIDE 95 MEQ/L (98-107); POTASSIUM 3.3 MEQ/L (3.5-5.1); SODIUM (NA) 133 MEQ/L (136-145)
[2017-07-16 00:40] LABS: ANION GAP 11 MEQ/L (5-15); BICARBONATE 27.1 MEQ/L (21.0-32.0); BLOOD UREA NITROGEN 4 MG/DL (7-18)
[2017-07-16 00:43] LABS: ALT (GPT) 27 U/L (10-53); AST (GOT) 140 U/L (15-37); GLOMERULAR FILTRATION RATE 186 ML/MIN (>89)
[2017-07-16 00:44] LABS: TOTAL BILIRUBIN ADULT 1.3 MG/DL (0.2-1.0)
[2017-07-16 00:45] LABS: HEMO FLAGS AUTO DIFF
[2017-07-16 00:46] LABS: ALKALINE PHOSPHATASE 491 U/L (45-117); PLATELET ESTIMATE SMEAR NORMAL (NORMAL); PLATELET MORPHOLOGY CLUMPED (NORMAL); SCAN/DIFF AUTO DIFF CONFIRMED
[2017-07-16 00:52] LABS: ALCOHOL 212 MG/DL (0-5)
[2017-07-16] MEDS ORDERED: MORPHINE SULFATE 2 MG/ML INJ IV PUSH ONE (01:00)
[2017-07-16] MEDS: NS + KCL 20 MEQ INJ 1,000 ML IV SCH ×3 (01:15→15:43)
[2017-07-16] MEDS ORDERED: MAGNESIUM HYDROXIDE SUSP 30 ML CUP PO PRN (01:45)
[2017-07-16] MEDS ORDERED: BISACODYL 10 MG SUPP RECTAL PRN (01:45)
[2017-07-16] MEDS ORDERED: SENNOSIDES 8.6 MG TAB PO PRN (01:45)
[2017-07-16] MEDS ORDERED: ACETAMINOPHEN 325 MG TAB PO PRN (01:45)
[2017-07-16] MEDS ORDERED: NALOXONE HCL 0.4 MG/ML AMP IV PUSH PRN (01:45)
[2017-07-16 03:00] VITALS: BP 104/64; PULSE 96; RESP 20; TEMP 98.1; O2SAT 99
[2017-07-16] MEDS: ONDANSETRON HCL 4 MG/2 ML VIAL IVP PRN ×3 (04:39→21:21)
[2017-07-16] MEDS: MORPHINE SULFATE 2 MG/ML INJ IV PUSH PRN ×5 (04:40→21:22)
[2017-07-16 08:26] VITALS: BP 104/70; PULSE 91; RESP 19; TEMP 98.1; O2SAT 98
[2017-07-16] MEDS: SODIUM CHLORIDE 0.9% FLUSH 10 ML FLUSH IV FLUSH SCH ×2 (08:48→21:00)
--- NOTE | 2017-07-16 12:23 | HHI.HP ---
[facility]Staff Admission Diagnosis acute alcoholic pancreatitis, mild hypokalemia Diagnoses: Chief Complaint: Abdominal pain Travel History International Travel<30 Days: No Contact w/Intl Traveler <30 Da: No Traveled to Known Affected Are: No History of Present Illness This patient is a 37-year-old female who was seen and evaluated for abdominal pain over the last several weeks. She does drink quite a bit of alcohol and has been treated for pancreatitis in the past. Patient reports nausea and vomiting similar to previous episodes however the pain was more severe. She came to the hospital. She does see her primary care doctor at the [facility]. She had been prescribed some narcotics for pain but says she ran out of them so she came to the hospital. There has not been any fevers or chills. There is no diarrhea. Patient is better with IV narcotics and with bowel rest. On arrival her about level was 212. Says she has recently made appointments for Alcoholics Anonymous. On arrival here she has elevated bilirubin, she is anemic, or leukocytes are elevated she is tachycardic. She has dry membranes and hyponatremic. Appears ill. Patient has been admitted to the hospital further evaluation treatment for signs and symptoms of sepsis with evidence of pancreatitis. Previous CT of abdomen pelvis was done on her last admission which did show some information: Consistent with probable colitis. Review of Systems Constitutional: DENIES: Diaphoretic episodes, Fatigue, Fever, Weight gain, Weight loss, Chills, Dizziness, Change in appetite, Night Sweats Endocrine: DENIES: Abnorml menstrual pattern, Heat/cold intolerance, Polydipsia , Polyuria, Polyphagia Eyes: DENIES: Blurred vision, Diplopia, Eye inflammation, Eye pain, Vision loss , Photosensitivity, Double Vision Ears, nose, mouth, throat: DENIES: Tinnitus, Hearing loss, Vertigo, Nasal discharge, Oral lesions, Throat pain, Hoarseness, Ear Pain, Running Nose, Epistaxis, Sinus Pain, Toothache, Odynophagia Respiratory: DENIES: Apneas, Cough, Snoring, Wheezing, Hemoptysis, Sputum production, Shortness of breath Cardiovascular: DENIES: Chest pain, Palpitations, Syncope, Dyspnea on Exertion , PND, Lower Extremity Edema, Orthopnea, Claudication Gastrointestinal: COMPLAINS OF: Abdominal pain, Black stools, Bloody stools, Constipation, Diarrhea, Nausea, Vomiting, Difficulty Swallowing, Anorexia Genitourinary: DENIES: Abnormal vaginal bleeding, Dysmenorrhea, Dyspareunia, Sexual dysfunction, Urinary frequency, Urinary incontinence, Urgency, Hematuria , Dysuria, Nocturia, Vaginal discharge Musculoskeletal: DENIES: Joint pain, Muscle aches, Stiffness, Joint Swelling, Back pain, Neck pain Integumentary: DENIES: Abnormal pigmentation, Pruritus, Rash, Nail changes, Breast masses, Breast skin changes, Nipple discharge Hematologic/lymphatic: DENIES: Bruising, Lymphadenopathy Immunologic/allergic: DENIES: Eczema, Urticaria Neurologic: DENIES: Abnormal gait, Headache, Localized weakness, Paresthesias, Seizures, Speech Problems, Tremor, Poor Balance Psychiatric: COMPLAINS OF: Anxiety Except as stated in HPI: all other systems reviewed are Neg Past Family Social History Past Medical History Seizure disorder Alcohol dependency Past Surgical History tonsils Reported Medications reviewed in the emr, ran out of pain meds Allergies: Coded Allergies: ciprofloxacin (Unverified Allergy, Severe, Cramping, 07/02/17) ALSO POSSIBLE SEIZURE phenazopyridine (Unverified Allergy, Severe, CRAMPING, 07/02/17) POSSIBLE SEIZURE Active Ordered Medications Reviewed in the EMR Family History Patient has family history of diabetes and hypertension Social History Patient smokes at least a half a pack a day, alcohol dependency Marijuana Lives with her fianc and her daughter Unemployed Physical Exam Vital Signs Vital Signs Date Time Temp Pulse Resp B/P (MAP) Pulse Ox O2 Delivery O2 Flow Rate FiO2 07/16/17 09:18 20 07/16/17 08:26 98.1 91 19 104/70 (81) 98 07/16/17 03:00 98.1 96 20 104/64 (77) 99 07/16/17 02:15 07/16/17 00:49 16 07/16/17 00:21 99 07/16/17 00:02 97.7 122 18 114/56 (75) 99 07/15/17 23:57 97.7 122 22 114/56 (75) 99 Physical Exam GENERAL: This is a frail and pale, well-developed patient, in no apparent distress. SKIN: No rashes, ecchymoses or lesions. Cool and dry. HEAD: Atraumatic. Normocephalic. No temporal or scalp tenderness. EYES: Pupils equal round and reactive. Extraocular motions intact. No scleral icterus. No injection or drainage. ENT: Nose without bleeding, purulent drainage or septal hematoma. Throat without erythema, tonsillar hypertrophy or exudate. Uvula midline. Airway patent. NECK: Trachea midline. No JVD or lymphadenopathy. Supple, nontender, no meningeal signs. CARDIOVASCULAR: Regular rate and rhythm without murmurs, gallops, or rubs. RESPIRATORY: Clear to auscultation. Breath sounds equal bilaterally. No wheezes , rales, or rhonchi. GASTROINTESTINAL: Abdomen soft, hypoactive, diffusely tender no hepato- splenomegaly, or palpable masses. No guarding. MUSCULOSKELETAL: Extremities without clubbing, cyanosis, or edema. No joint tenderness, effusion, or edema noted. No calf tenderness. Negative Homans sign bilaterally. NEUROLOGICAL: Awake and alert. Cranial nerves II through XII intact. Motor and sensory grossly within normal limits. Five out of 5 muscle strength in all muscle groups. Normal speech. Laboratory Laboratory Tests Test 07/16/17 00:20 White Blood Count 12.6 Red Blood Count 3.06 Hemoglobin 10.8 Hematocrit 32.9 Mean Corpuscular Volume 107.8 Mean Corpuscular Hemoglobin 35.3 Mean Corpuscular Hemoglobin Concent 32.7 Red Cell Distribution Width 18.0 Platelet Count 231 Mean Platelet Volume 7.5 Neutrophils (%) (Auto) 68.4 Lymphocytes (%) (Auto) 23.8 Monocytes (%) (Auto) 6.5 Eosinophils (%) (Auto) 0.7 Basophils (%) (Auto) 0.6 Neutrophils # (Auto) 8.6 Lymphocytes # (Auto) 3.0 Monocytes # (Auto) 0.8 Eosinophils # (Auto) 0.1 Basophils # (Auto) 0.1 CBC Comment AUTO DIFF Differential Comment AUTO DIFF CONFIRMED Platelet Estimate NORMAL Platelet Morphology Comment CLUMPED Blood Urea Nitrogen 4 Creatinine 0.39 Random Glucose 97 Total Protein 8.2 Albumin 2.5 Calcium Level 8.6 Alkaline Phosphatase 491 Aspartate Amino Transf (AST/SGOT) 140 Alanine Aminotransferase (ALT/SGPT) 27 Total Bilirubin 1.3 Sodium Level 133 Potassium Level 3.3 Chloride Level 95 Carbon Dioxide Level 27.1 Anion Gap 11 Estimat Glomerular Filtration Rate 186 Lipase 1351 Ethyl Alcohol Level 212 Result Diagram: 07/16/171907/16/1719 Caprini VTE Risk Assessment Caprini VTE Risk Assessment: Mod/High Risk (score >= 2) Caprini Risk Assessment Model Point Value = 1 Point Value = 2 Point Value = 3 Point Value = 5 Age 41-60 Minor surgery BMI > 25 kg/m2 Swollen legs Varicose veins or History of unexplained or recurrent spontaneous Oral contraceptives or hormone replacement Sepsis (< 1 month) Serious lung disease, including pneumonia (< 1 month) Abnormal pulmonary function Acute myocardial infarction Congestive heart failure (< 1 month) History of inflammatory bowel disease Medical patient at bed rest Age 61-74 Arthroscopic surgery Major open surgery (> 45 min) Laparoscopic surgery (> 45 min) Malignancy Confined to bed (> 72 hours) Immobilizing plaster cast Central venous access Age >= 75 History of VTE Family history of VTE Factor V Leiden Prothrombin [id number] Lupus anticoagulant Anticardiolipin antibodies Elevated serum homocysteine Heparin-induced thrombocytopenia Other congenital or acquired thrombophilia Stroke (< 1 month) Elective arthroplasty Hip, pelvis, or leg fracture Acute spinal cord injury (< 1 month) Prophylaxis Regimen Total Risk Factor Score Risk Level Prophylaxis Regimen 0-1 Low Early ambulation 2 Moderate Order ONE of the following: *Sequential Compression Device (SCD) *Heparin 5000 units SQ BID 3-4 Higher Order ONE of the following medications: *Heparin 5000 units SQ TID *Enoxaparin/Lovenox 40 mg SQ daily (WT < 150 kg, CrCl > 30 mL/min) *Enoxaparin/Lovenox 30 mg SQ daily (WT < 150 kg, CrCl > 10-29 mL/min) *Enoxaparin/Lovenox 30 mg SQ BID (WT < 150 kg, CrCl > 30 mL/min) AND/OR *Sequential Compression Device (SCD) 5 or more Highest Order ONE of the following medications: *Heparin 5000 units SQ TID (Preferred with Epidurals) *Enoxaparin/Lovenox 40 mg SQ daily (WT < 150 kg, CrCl > 30 mL/min) *Enoxaparin/Lovenox 30 mg SQ daily (WT < 150 kg, CrCl > 10-29 mL/min) *Enoxaparin/Lovenox 30 mg SQ BID (WT < 150 kg, CrCl > 30 mL/min) AND *Sequential Compression Device (SCD) Assessment and Plan Problem List: (1) Pancreatitis ICD Code: K85.90 - Acute pancreatitis without necrosis or infection, unspecified Plan: Patient meets criteria for sepsis patient meets criteria for sepsis secondary to pancreatitis v colitis add alinia Patient with tachycardia, leukocytosis cont ivf pain improved with IV morphine repeat CT pending to follow up pancreatitis (2) EtOH dependence ICD Code: F10.20 - Alcohol dependence, uncomplicated Plan: etoh level 212 Patient now in alcoholics anonymous reports intentions for sobriety (3) Electrolyte abnormality ICD Code: E87.8 - Other disorders of electrolyte and fluid balance, not elsewhere classified Plan: Patient with hypokalemia and hyponatremia Continue to follow with potassium replacement, check magnesium (4) Seizure disorder ICD Code: G40.909 - Epilepsy, unspecified, not intractable, without status epilepticus Status: Acute Plan: continue Keppra, stable for 3 years (5) Elevated LFTs ICD Code: R79.89 - Other specified abnormal findings of blood chemistry Plan: consistent with alcoholic hepatitis Overall improved from prior encounters Continue surveillance Assessment and Plan heparin Code Status full code Discussed Condition With patient, RN Physician Certification 2 Midnight Certification Type: Admission for Inpatient Services Order for Inpatient Services The services are ordered in accordance with Medicare regulations or non- Medicare payer requirements, as applicable. In the case of services not specified as inpatient-only, they are appropriately provided as inpatient services in accordance with the 2-midnight benchmark. Estimated LOS (days): 2 2 days is the estimated time the patient will need to remain in the hospital, assuming treatment plan goals are met and no additional complications. Post-Hospital Plan: Aida Skinner MD Jul 16, 2017 12:23
[2017-07-16 13:04] VITALS: BP 97/69; PULSE 81; PULSE 91; RESP 16; TEMP 97.6; TEMP 98.1; O2SAT 100
[2017-07-16] MEDS ORDERED: NITAZOXANIDE 500 MG TAB PO SCH ×2 (14:00→15:00)
[2017-07-16] MEDS: levETIRAcetam 250 MG TAB PO SCH ×2 (15:42→21:22)
[2017-07-16] MEDS: HEPARIN SODIUM - SQ 10,000 UNITS/ML VIAL SQ SCH ×2 (15:43→21:23)
[2017-07-16] MEDS ORDERED: DIATRIZOATE MEGLUM/DIATRIZOATE SOD 9 ML CUP PO ONE (16:00)
[2017-07-16 20:00] VITALS: BP_SYST 147; BP_SYST 94; BP_DIAS 66; BP_DIAS 79; PULSE 85; RESP 20; TEMP 97.5; O2SAT 98; O2SAT 99
[2017-07-16] MEDS ORDERED: IOHEXOL 350 MG/ML 10 ML VIAL (for RAD DIAG) IVCONTRAST ONE (20:17)
--- NOTE | 2017-07-16 20:26 | RADRPT ---
EXAM DATE/TIME: 07/16/2017 20:10 [place] COMPARISON: CT ABDOMEN & PELVIS W CONTRAST, July 02, 2017, 23:11. INDICATIONS : Colitis follow up. History of pancreatitis. IV CONTRAST: 95 cc Omnipaque 350 (iohexol) IV ORAL CONTRAST: Prescribed oral contrast ingested. RADIATION DOSE: 4.45 CTDIvol (mGy) MEDICAL HISTORY : Hypertension. Pancreatitis. Renal calculi. SURGICAL HISTORY : None. ENCOUNTER: Subsequent ACUITY: 2 weeks PAIN SCALE: 0/10 LOCATION: abdomen TECHNIQUE: Volumetric scanning of the abdomen and pelvis was performed. Using automated exposure control and ad justment of the mA and/or kV according to patient size, radiation dose was kept as low as reasonably achievable to obtain optimal diagnostic quality images. DICOM format image data is available electro nically for review and comparison. FINDINGS: LOWER LUNGS: The visualized lower lungs are clear. LIVER: Heterogeneous density without lesion. Small amount of abdominal ascites. There is no dilation of the biliary tree. No calcified gallstones. SPLEEN: Enlarged without lesion. PANCREAS: Within normal limits. KIDNEYS: Normal in size and shape. There is no mass, stone or hydronephrosis. ADRENAL GLANDS: Within normal limits. VASCULAR: There is no aortic aneurysm. BOWEL/MESENTERY: The stomach, small bowel, and colon demonstrate no acute abnormality. Scatter wall thickening within small bowel loops and colon. There is no free intraperitoneal air or fluid. ABDOMINAL WALL: Within normal limits. RETROPERITONEUM: There is no lymphadenopathy. BLADDER: No wall thickening or mass. REPRODUCTIVE: Within normal limits. INGUINAL: There is no lymphadenopathy or hernia. MUSCULOSKELETAL: Within normal limits for patient age. CONCLUSION: 1. Heterogeneous liver and splenomegaly unchanged. 2. Small amount of abdominal ascites. 3. Scattered areas of wall thickening within small and large bowel loops. Gustavo Dennis MD on July 16, 2017 at 20:21 Board Certified Radiologist. This report was verified electronically.
[2017-07-17] VITALS: BP 103/72; PULSE 86; RESP 20; TEMP 96.5; O2SAT 100
[2017-07-17] MEDS: MORPHINE SULFATE 2 MG/ML INJ IV PUSH PRN ×3 (00:46→09:26)
[2017-07-17] MEDS: NS + KCL 20 MEQ INJ 1,000 ML IV SCH ×2 (01:49→09:27)
[2017-07-17] MEDS: ONDANSETRON HCL 4 MG/2 ML VIAL IVP PRN (04:02)
[2017-07-17] MEDS: HEPARIN SODIUM - SQ 10,000 UNITS/ML VIAL SQ SCH (04:32)
[2017-07-17 06:36] LABS: AUTOMATED NEUTROPHIL # 4.6 TH/MM3 (1.8-7.7); BASOPHIL % 0.2 % (0.0-2.0); EOSINOPHIL # 0.1 TH/MM3 (0-0.4); EOSINOPHIL % 1.5 % (0.0-4.0); HEMATOCRIT 27.7 % (35.0-46.0); LYMPH % 19.5 % (9.0-44.0); LYMPHOCYTE # 1.2 TH/MM3 (1.0-4.8); MEAN CELL VOLUME 106.4 FL (80.0-100.0); MEAN CORPUSCULAR HEMOGLOBIN 34.7 PG (27.0-34.0); MEAN CORPUSCULAR HGB CONC 32.6 % (32.0-36.0); MONO % 7.3 % (0.0-8.0); NEUT % 71.5 % (16.0-70.0); RED CELL DISTRIBUTION WIDTH 17.6 % (11.6-17.2); WHITE BLOOD COUNT 6.4 TH/MM3 (4.0-11.0)
[2017-07-17 07:06] LABS: HEMO FLAGS DIFF FINAL; PLATELET COUNT 153 TH/MM3 (150-450)
[2017-07-17 07:45] LABS: ALKALINE PHOSPHATASE 333 U/L (45-117); ALT (GPT) 19 U/L (10-53); ANION GAP 9 MEQ/L (5-15); AST (GOT) 96 U/L (15-37); BICARBONATE 21.2 MEQ/L (21.0-32.0); BLOOD UREA NITROGEN 2 MG/DL (7-18); CHLORIDE 107 MEQ/L (98-107); GLOMERULAR FILTRATION RATE 360 ML/MIN (>89); POTASSIUM 3.8 MEQ/L (3.5-5.1); SODIUM (NA) 137 MEQ/L (136-145); TOTAL BILIRUBIN ADULT 1.1 MG/DL (0.2-1.0)
[2017-07-17 08:43] VITALS: BP 97/53; PULSE 77; RESP 16; TEMP 96.9; O2SAT 100
[2017-07-17] MEDS ORDERED: NITAZOXANIDE 500 MG TAB PO SCH (09:00)
[2017-07-17] MEDS: SODIUM CHLORIDE 0.9% FLUSH 10 ML FLUSH IV FLUSH SCH (09:00)
[2017-07-17] MEDS: levETIRAcetam 250 MG TAB PO SCH (09:26)
[2017-07-17] MEDS ORDERED: ALIN500T PO (10:39)
--- NOTE | 2017-07-17 10:40 | HHI.DCPOC ---
Discharge Care Plan Diagnosis: (1) Colitis (2) Pancreatitis Goals to Promote Your Health * To prevent worsening of your condition and complications * To maintain your health at the optimal level Directions to Meet Your Goals Take your medications as prescribed Follow your dietary instruction Follow activity as directed Keep your appointments as scheduled Take your immunizations and boosters as scheduled If your symptoms worsen call your PCP, if no PCP go to Urgent Care Center or Emergency Room Smoking is Dangerous to Your Health. Avoid second hand smoke Call the 24-hour hour crisis hotline for domestic abuse at Aida Avila MD Jul 17, 2017 10:40
--- NOTE | 2017-07-17 10:41 | HHI.DCPOC ---
Discharge Care Plan Diagnosis: (1) Colitis (2) Pancreatitis Goals to Promote Your Health * To prevent worsening of your condition and complications * To maintain your health at the optimal level Directions to Meet Your Goals Take your medications as prescribed Follow your dietary instruction Follow activity as directed Keep your appointments as scheduled Take your immunizations and boosters as scheduled If your symptoms worsen call your PCP, if no PCP go to Urgent Care Center or Emergency Room Smoking is Dangerous to Your Health. Avoid second hand smoke Call the 24-hour hour crisis hotline for domestic abuse at Aida Avila MD Jul 17, 2017 10:41
--- NOTE | 2017-07-17 10:44 | HHI.DS ---
Discharge Summary Admission Date Jul 16, 2017 at 10:11 Discharge Date: Jul 17, 2017 Admitting Diagnosis acute alcoholic pancreatitis, mild hypokalemia (1) Pancreatitis ICD Code: K85.90 - Acute pancreatitis without necrosis or infection, unspecified (2) EtOH dependence ICD Code: F10.20 - Alcohol dependence, uncomplicated (3) Electrolyte abnormality ICD Code: E87.8 - Other disorders of electrolyte and fluid balance, not elsewhere classified (4) Seizure disorder ICD Code: G40.909 - Epilepsy, unspecified, not intractable, without status epilepticus Status: Acute (5) Elevated LFTs ICD Code: R79.89 - Other specified abnormal findings of blood chemistry (6) Colitis ICD Code: K52.9 - Noninfective gastroenteritis and colitis, unspecified Procedures none Brief History - From Admission This patient is a 37-year-old female who was seen and evaluated for abdominal pain over the last several weeks. She does drink quite a bit of alcohol and has been treated for pancreatitis in the past. Patient reports nausea and vomiting similar to previous episodes however the pain was more severe. She came to the hospital. She does see her primary care doctor at the [facility]. She had been prescribed some narcotics for pain but says she ran out of them so she came to the hospital. There has not been any fevers or chills. There is no diarrhea. Patient is better with IV narcotics and with bowel rest. On arrival her about level was 212. Says she has recently made appointments for Alcoholics Anonymous. On arrival here she has elevated bilirubin, she is anemic, or leukocytes are elevated she is tachycardic. She has dry membranes and hyponatremic. Appears ill. Patient has been admitted to the hospital further evaluation treatment for signs and symptoms of sepsis with evidence of pancreatitis. Previous CT of abdomen pelvis was done on her last admission which did show some information: Consistent with probable colitis. CBC/BMP: 07/17/17 0540 07/17/17 0540 Significant Findings Laboratory Tests Test 07/16/17 00:20 07/16/17 16:05 07/17/17 05:40 White Blood Count 12.6 TH/MM3 (4.0-11.0) Red Blood Count 3.06 MIL/MM3 (4.00-5.30) 2.60 MIL/MM3 (4.00-5.30) Hemoglobin 10.8 GM/DL (11.6-15.3) 9.0 GM/DL (11.6-15.3) Hematocrit 32.9 % (35.0-46.0) 27.7 % (35.0-46.0) Mean Corpuscular Volume 107.8 FL (80.0-100.0) 106.4 FL (80.0-100.0) Mean Corpuscular Hemoglobin 35.3 PG (27.0-34.0) 34.7 PG (27.0-34.0) Red Cell Distribution Width 18.0 % (11.6-17.2) 17.6 % (11.6-17.2) Neutrophils # (Auto) 8.6 TH/MM3 (1.8-7.7) Platelet Morphology Comment CLUMPED (NORMAL) Blood Urea Nitrogen 4 MG/DL (7-18) 2 MG/DL (7-18) Creatinine 0.39 MG/DL (0.50-1.00) 0.22 MG/DL (0.50-1.00) Albumin 2.5 GM/DL (3.4-5.0) 1.9 GM/DL (3.4-5.0) Alkaline Phosphatase 491 U/L (45-117) 333 U/L (45-117) Aspartate Amino Transf (AST/SGOT) 140 U/L (15-37) 96 U/L (15-37) Total Bilirubin 1.3 MG/DL (0.2-1.0) 1.1 MG/DL (0.2-1.0) Sodium Level 133 MEQ/L (136-145) Potassium Level 3.3 MEQ/L (3.5-5.1) Chloride Level 95 MEQ/L (98-107) Lipase 1351 U/L (73-393) Ethyl Alcohol Level 212 MG/DL (0-5) Neutrophils (%) (Auto) 71.5 % (16.0-70.0) Random Glucose 73 MG/DL (74-106) Total Protein 6.1 GM/DL (6.4-8.2) Calcium Level 7.8 MG/DL (8.5-10.1) Imaging Last Impressions Abdomen/Pelvis CT 07/16/17 0000 Signed Impressions: Service Date/Time: Sunday, July 16, 2017 20:10 - CONCLUSION: 1. Heterogeneous liver and splenomegaly unchanged. 2. Small amount of abdominal ascites. 3. Scattered areas of wall thickening within small and large bowel loops. Gustavo Dennis MD PE at Discharge GENERAL: This is a well-nourished, well-developed patient, in no apparent distress. CARDIOVASCULAR: Regular rate and rhythm without murmurs, gallops, or rubs. RESPIRATORY: Clear to auscultation. Breath sounds equal bilaterally. No wheezes , rales, or rhonchi. GASTROINTESTINAL: Abdomen soft, non-tender, nondistended. Normal active bowel sounds MUSCULOSKELETAL: Extremities without clubbing, cyanosis, or edema. NEURO: Alert & Oriented x4 to person, place, time, situation. Moves all ext x4 Pt update on day of discharge patient doing much better, tolerating liquids pain resolved DC plans discussed with patient and team Hospital Course This patient was seen and treated for abdominal pain related to pancreatitis and colitis. She was given IV narcotics and antiemetics. Her diet was slowly resumed after period of fasting. Patient did have antibiotics prescribed and did well with that Pt Condition on Discharge: Good Discharge Disposition: Discharge Home Discharge Time: <= 30 minutes Discharge Instructions DIET: Follow Instructions for: As Tolerated, No Restrictions Activities you can perform: Regular-No Restrictions Follow up Referrals: Gastroenterology - Today New Medications: Nitazoxanide (Alinia) 500 Mg Tab 500 MG PO Q12HR for Infection, #14 TAB Continued Medications: Albuterol 6.7 GM Inh (Proventil Hfa 6.7 GM Inh) 90 Mcg/Act Aer 1 PUFF INH Q4H PRN for SHORTNESS OF BREATH, #1 INHALER 0 Refills Levetiracetam (Levetiracetam) 250 Mg Tab 250 MG PO BID for Control Seizures, #60 TAB 0 Refills Oxycodone (Oxycodone) 5 Mg Tab 5 MG PO Q4-6H PRN for abd pain 1-5, #20 TAB Potassium Chloride ER (Potassium Chloride ER) 20 Meq Tab 20 MEQ PO DAILY for Electrolyte Replacement, #30 TAB 0 Refills Promethazine (Phenergan) 25 Mg Tablet 25 MG PO Q6H PRN for NAUSEA OR VOMITING, #10 TAB 0 Refills Aida Avila MD Jul 17, 2017 10:43
[2017-07-17 12:00] VITALS: BP 104/59; PULSE 79; RESP 16; TEMP 96.7; O2SAT 100
== END 2017-07-17 13:21 | disposition home or self-care (01) | DRG 871 ==
LOC: PHED 23:51 → PHEDA 07-16 00:58 → PH3B 07-16 02:09 → OBSVTOIN 07-16 10:11
PROVIDERS: ADMIT Hospitalist; ATTEND Hospitalist
DX: A41.9 Sepsis, unspecified organism (principal); K85.20 Alcohol induced acute pancreatitis without necrosis or infection; E87.1 Hypo-osmolality and hyponatremia; K70.10 Alcoholic hepatitis without ascites; I10 Essential (primary) hypertension; E87.6 Hypokalemia; F17.210 Nicotine dependence, cigarettes, uncomplicated; F10.20 Alcohol dependence, uncomplicated; Y90.7 Blood alcohol level of 200-239 mg/100 ml; K52.9 Noninfective gastroenteritis and colitis, unspecified; G40.909 Epilepsy, unspecified, not intractable, without status epilepticus; D64.9 Anemia, unspecified; F41.9 Anxiety disorder, unspecified; R00.0 Tachycardia, unspecified
CPT/HCPCS: 74177; 80053; 80307; 82140; 83690; 83735; 85025; J0348; J1644; J2270; J2405; J3480; J7030; Q9963; Q9967

== ENCOUNTER 2017-07-30 08:16 | Emergency (ER) | payer MEDICAID ==
[~2017-07-30] VITALS: Ht 154.9 cm; Wt 36.0 kg
[~2017-07-30 08:16] MED LIST changes: +ALIN500T PO
[2017-07-30 08:20] VITALS: BP_SYST 102; BP_SYST 119; BP_DIAS 76; BP_DIAS 87; PULSE 113; PULSE 115; RESP 18; RESP 20; TEMP 98.3; O2SAT 100
[2017-07-30] MEDS ORDERED: ZOFR4TAB PO ×2 (08:37→09:30)
--- NOTE | 2017-07-30 08:39 | PD ---
HPI Chief Complaint: GI Complaint Time Seen by Provider: 08:27 Travel History International Travel<30 days: No Contact w/Intl Traveler<30days: No Traveled to known affect area: No History of Present Illness HPI The patient was seen and examined in the presence of the nurse. This patient is a alcohol abuser patient with frequent exacerbations pancreatitis. sHe was drinking wine yesterday. She complains of abdominal pain primarily in the epigastrium. Does not of history of gallstones. No fever. Complains of vomiting and diarrhea. No alleviating factors. Symptoms exacerbated by alcohol. Duration one day. PFSH Past Medical History Autoimmune Disease: No Anxiety: Yes Depression: No Heart Rhythm Problems: No Cancer: No Cardiovascular Problems: Yes High Cholesterol: No Congestive Heart Failure: No Diabetes: No Diminished Hearing: No Endocrine: No Gastrointestinal Disorders: Yes (CHRONIC PANCREATITIS) GERD: No Genitourinary: Yes ( ) Hiatal Hernia: No Heparin Induced Thrombocytopen: No Hypertension: Yes Immune Disorder: No Implanted Vascular Access Dvce: No Kidney Stones: Yes Musculoskeletal: No Neurologic: Yes Psychiatric: Yes Reproductive: No Respiratory: No Migraines: No Renal Failure: No Seizures: Yes (2013) Sickle Cell Disease: No Thyroid Disease: No Ulcer: No Influenza Vaccination: Yes ?: Not : 2 Para: 2 Past Surgical History Abdominal Surgery: No AICD: No Arteriovenous Shunt: No Cardiac Surgery: No Ear Surgery: No Endocrine Surgery: No Eye Surgery: No Genitourinary Surgery: No Gynecologic Surgery: No Insulin Pump: No Joint Replacement: No Oral Surgery: Yes Pacemaker: No Thoracic Surgery: No Tonsillectomy: Yes Other Surgery: Yes Social History Alcohol Use: Yes (yesterday 1 glass wine) Tobacco Use: Yes (/2 PPD) Substance Use: Yes (MARIJUANA alcohol) Allergies-Medications (Allergen,Severity, Reaction): Coded Allergies: ciprofloxacin (Unverified Allergy, Severe, Cramping, 07/30/17) ALSO POSSIBLE SEIZURE phenazopyridine (Unverified Allergy, Severe, CRAMPING, 07/30/17) POSSIBLE SEIZURE Reported Meds & Prescriptions Reported Meds & Active Scripts Active Zofran (Ondansetron HCl) 4 Mg Tab 4 Mg PO Q6HR PRN Tramadol (Tramadol HCl) 50 Mg Tab 50 Mg PO Q6H PRN Potassium Chloride ER (Potassium Chloride) 20 Meq Tab 20 Meq PO DAILY Reported Zofran (Ondansetron HCl) 4 Mg Tab 4 Mg PO Q6HR PRN Levetiracetam 250 Mg Tab 250 Mg PO BID Review of Systems General / Constitutional: No: Fever Eyes: No: Visual changes HENT: No: Headaches Cardiovascular: No: Chest Pain or Discomfort Respiratory: No: Shortness of Breath Gastrointestinal: Positive: Nausea, Vomiting, Diarrhea, Abdominal Pain Genitourinary: No: Dysuria Musculoskeletal: No: Pain Skin: No Rash Neurologic: No: Weakness Psychiatric: Positive: Substance Abuse, No: Depression Endocrine: No: Polydipsia Hematologic/Lymphatic: No: Easy Bruising Physical Exam Narrative GENERAL: Thin cachectic well-developed patient in no apparent distress. SKIN: Focused skin assessment reveals no rash and nodules. Skin is Warm and dry. HEAD: Atraumatic. Normocephalic. EYES: Pupils equal and round. No scleral icterus. No injection or drainage. ENT: No nasal bleeding or discharge. Mucous membranes pink and moist. NECK: Trachea midline. No JVD. CARDIOVASCULAR: Regular rate and rhythm. No murmur appreciated. RESPIRATORY: No accessory muscle use. Clear to auscultation. Breath sounds equal bilaterally. GASTROINTESTINAL: Abdomen soft, epigastrium is tender without rebound or guarding, nondistended. Hepatic and splenic margins not palpable. MUSCULOSKELETAL: No obvious deformities. No clubbing. No cyanosis. No edema. NEUROLOGICAL: Awake and alert. No obvious cranial nerve deficits. Motor grossly within normal limits. Normal speech. PSYCHIATRIC: Appropriate mood and affect; insight and judgment poor . Data Data Last Documented VS Vital Signs Date Time Temp Pulse Resp B/P (MAP) Pulse Ox O2 Delivery O2 Flow Rate FiO2 07/30/17 09:13 102 20 107/67 (80) 99 Room Air 07/30/17 08:20 98.3 Orders Orders Complete Blood Count With Diff (07/30/17 08:34) Comprehensive Metabolic Panel (07/30/17 08:34) Lipase (07/30/17 08:34) Prothrombin Time / Inr (Pt) (07/30/17 08:34) Act Partial Throm Time (Ptt) (07/30/17 08:34) Iv Access Insert/Monitor (07/30/17 08:34) Ecg Monitoring (07/30/17 08:34) NPO (07/30/17 08:34) Morphine Inj (Morphine Inj) (07/30/17 08:45) Ondansetron Inj (Zofran Inj) (07/30/17 08:45) Pantoprazole Inj (Protonix Inj) (07/30/17 08:45) Sodium Chloride 0.9% Flush (Ns Flush) (07/30/17 08:45) Sodium Chlor 0.9% 1000 Ml Inj (Ns 1000 M (07/30/17 08:45) Alcohol (Ethanol) (07/30/17 08:34) Beta Hcg (Quant/Titer) (07/30/17 08:34) Labs Laboratory Tests Test 07/30/17 08:54 White Blood Count 7.4 TH/MM3 Red Blood Count 2.62 MIL/MM3 Hemoglobin 9.4 GM/DL Hematocrit 28.0 % Mean Corpuscular Volume 106.8 FL Mean Corpuscular Hemoglobin 36.1 PG Mean Corpuscular Hemoglobin Concent 33.8 % Red Cell Distribution Width 15.8 % Platelet Count 144 TH/MM3 Mean Platelet Volume 7.6 FL Neutrophils (%) (Auto) 67.8 % Lymphocytes (%) (Auto) 19.5 % Monocytes (%) (Auto) 8.9 % Eosinophils (%) (Auto) 0.2 % Basophils (%) (Auto) 3.6 % Neutrophils # (Auto) 5.0 TH/MM3 Lymphocytes # (Auto) 1.4 TH/MM3 Monocytes # (Auto) 0.7 TH/MM3 Eosinophils # (Auto) 0.0 TH/MM3 Basophils # (Auto) 0.3 TH/MM3 CBC Comment DIFF FINAL Differential Comment Prothrombin Time 12.7 SEC Prothromb Time International Ratio 1.3 RATIO Activated Partial Thromboplast Time 27.5 SEC Blood Urea Nitrogen 6 MG/DL Creatinine 0.41 MG/DL Random Glucose 92 MG/DL Total Protein 7.4 GM/DL Albumin 2.1 GM/DL Calcium Level 8.0 MG/DL Alkaline Phosphatase 665 U/L Aspartate Amino Transf (AST/SGOT) 147 U/L Alanine Aminotransferase (ALT/SGPT) 27 U/L Total Bilirubin 1.2 MG/DL Sodium Level 134 MEQ/L Potassium Level 4.5 MEQ/L Chloride Level 100 MEQ/L Carbon Dioxide Level 26.9 MEQ/L Anion Gap 7 MEQ/L Estimat Glomerular Filtration Rate 176 ML/MIN Lipase 547 U/L Human Chorionic Gonadotropin, Quant LESS THAN 1 MIU/ML Ethyl Alcohol Level LESS THAN 3 MG/DL MDM Medical Decision Making Medical Screen Exam Complete: Yes Emergency Medical Condition: Yes Medical Record Reviewed: Yes Differential Diagnosis Differential diagnosis includes pancreatitis, biliary colic, hepatitis, GERD, peptic ulcer disease. Narrative Course I have reviewed the patient's electronic medical record. Patient is a frequent visitor for pancreatitis. Usually she is intoxicated. She's had multiple abdominal CTs as well as gallbladder ultrasound recently IV placed CBC shows anemia and borderline thrombocytopenia. Her hemoglobin is slightly higher than it was 2 weeks ago metabolic profile reasonably normal LFT's slightly elevated LFTs lipase slightly elevated Coagulation studies are slightly elevated Alcohol level is negative Beta hCG is negative I gave her 1 L normal saline IV and IV Zofran and a dose of morphine on recheck she looks clinically improved. Heart rate is at 100. The pain is decreased Most importantly she has to avoid alcohol. I suggested [facility] alcohol rehabilitation services. Suggested daily acid blocking medication and avoidance of Tylenol and anti-inflammatory products Wrote her some tramadol and Zofran to use as needed for symptom relief She has a GI appointment next month. She has a family physician. Diagnosis Primary Impression: Pancreatitis Qualified Codes: K85.20 - Alcohol induced acute pancreatitis without necrosis or infection Additional Instructions: The patient was advised to follow up with their physician and return if they worsen. The patient was warned about potential sedation for the medications they will receive on prescription. Need to avoid alcohol Tylenol and anti-inflammatory products Med/Other Pt SpecificInfo: Prescription(s) given Scripts Ondansetron (Zofran) 4 Mg Tab 4 MG PO Q6HR Y for NAUSEA OR VOMITING, #15 TAB 0 Refills Prov: Jhonathan Caceres MD 07/30/17 Tramadol (Tramadol) 50 Mg Tab 50 MG PO Q6H Y for PAIN, #20 TAB 0 Refills Prov: Jhonathan Caceres MD 07/30/17 Disposition: 01 DISCHARGE HOME Condition: Stable Jhonathan Caceres MD Jul 30, 2017 08:39
[2017-07-30] MEDS ORDERED: SODIUM CHLOR 0.9% 1000 ML INJ 1,000 ML IV ONE (08:45)
[2017-07-30] MEDS ORDERED: SODIUM CHLORIDE 0.9% FLUSH 10 ML FLUSH IV FLUSH PRN (08:45)
[2017-07-30] MEDS ORDERED: MORPHINE SULFATE 4 MG/ML INJ IV PUSH ONE (08:45)
[2017-07-30] MEDS ORDERED: PANTOPRAZOLE SODIUM 40 MG VIAL IVP ONE (08:45)
[2017-07-30] MEDS ORDERED: ONDANSETRON HCL 4 MG/2 ML VIAL IVP ONE (08:45)
[2017-07-30 09:00] LABS: BASOPHIL # 0.3 TH/MM3 (0-0.2); BASOPHIL % 3.6 % (0.0-2.0); EOSINOPHIL % 0.2 % (0.0-4.0); HEMO FLAGS DIFF FINAL; LYMPH % 19.5 % (9.0-44.0); LYMPHOCYTE # 1.4 TH/MM3 (1.0-4.8); MEAN CELL VOLUME 106.8 FL (80.0-100.0); MEAN CORPUSCULAR HEMOGLOBIN 36.1 PG (27.0-34.0); MEAN CORPUSCULAR HGB CONC 33.8 % (32.0-36.0); MONO % 8.9 % (0.0-8.0); NEUT % 67.8 % (16.0-70.0); PLATELET COUNT 144 TH/MM3 (150-450); RED BLOOD COUNT 2.62 MIL/MM3 (4.00-5.30); RED CELL DISTRIBUTION WIDTH 15.8 % (11.6-17.2); WHITE BLOOD COUNT 7.4 TH/MM3 (4.0-11.0)
[2017-07-30 09:07] LABS: CHLORIDE 100 MEQ/L (98-107); POTASSIUM 4.5 MEQ/L (3.5-5.1); SODIUM (NA) 134 MEQ/L (136-145)
[2017-07-30 09:11] LABS: ANION GAP 7 MEQ/L (5-15); BICARBONATE 26.9 MEQ/L (21.0-32.0); BLOOD UREA NITROGEN 6 MG/DL (7-18)
[2017-07-30 09:12] LABS: APTT (PATIENT) 27.5 SEC (24.3-30.1); INTERNATIONAL NORMALIZED RATIO 1.3 RATIO; PROTHROMBIN TIME - PATIENT 12.7 SEC (9.8-11.6)
[2017-07-30 09:13] VITALS: BP 107/67; PULSE 102; RESP 20; O2SAT 99
[2017-07-30 09:14] LABS: ALCOHOL LESS THAN 3 MG/DL (0-5); ALT (GPT) 27 U/L (10-53); AST (GOT) 147 U/L (15-37); GLOMERULAR FILTRATION RATE 176 ML/MIN (>89)
[2017-07-30 09:15] LABS: TOTAL BILIRUBIN ADULT 1.2 MG/DL (0.2-1.0)
[2017-07-30 09:17] LABS: ALKALINE PHOSPHATASE 665 U/L (45-117)
[2017-07-30 09:19] LABS: BETA HCG QUANT LESS THAN 1 MIU/ML (0-5)
[2017-07-30] MEDS ORDERED: TRAM50TA PO (09:30)
[2017-07-30 09:45] VITALS: BP 107/67
== END 2017-07-30 09:52 | disposition home or self-care (01) ==
LOC: PHED 08:16
DX: K85.20 Alcohol induced acute pancreatitis without necrosis or infection (principal); F17.200 Nicotine dependence, unspecified, uncomplicated; F10.10 Alcohol abuse, uncomplicated; Y90.0 Blood alcohol level of less than 20 mg/100 ml; Z79.899 Other long term (current) drug therapy
CPT/HCPCS: 80053; 80307; 83690; 84702; 85025; 85610; 85730; 96361; 96374; 96375; 99284; C9113; J2270; J2405; J7030

== ENCOUNTER → 2017-11-20 | Outpatient (CLI) | payer MEDICAID ==
[~2017-11-20] MED LIST changes: -ALBU6.7H INH; -ALIN500T PO; -OXYC-392 PO; -PROM25TA10 PO; +TRAM50TA PO; +ZOFR4TAB PO
--- NOTE | 2017-11-22 10:00 | EKG ---
Date Performed: 11/20/2017 Time Performed: 14:52:12 PTAGE: 37 years EKG: Sinus rhythm NORMAL ECG PREVIOUS TRACING : 03/01/2016 10.44 Since the prior tracing, the diffuse nonspecific T-wave aleksander nges and the sinus tachycardia have resolved. DOCTOR: Dolly Gonzales Interpretating Date/Time 11/22/2017 09:58:38
== END ==
LOC: HCAV 14:38
PROVIDERS: ATTEND Psychiatry & Neurology Child & Adolescent Psychiatry
DX: F41.1 Generalized anxiety disorder (principal); F33.1 Major depressive disorder, recurrent, moderate
CPT/HCPCS: 93005

== ENCOUNTER 2018-03-05 22:13 | Inpatient (IN) ==
[2018-03-06] MEDS ORDERED: Sod Chloride 0.9% Inj 1,000 ML IV.SIG ONE (00:19)
--- NOTE | 2018-03-06 00:32 | ED ---
HPI General Chief complaint: Abdominal Pain Stated complaint: Abd Pain/Can Not Eat x2days Time Seen by Provider: 03/06/18 00:07 Source: patient Mode of arrival: ambulatory Limitations: no limitations History of Present Illness HPI narrative: Patient is a 38-year-old female who is a known alcoholic with history of pancreatitis, presents the emergency room with complaints of abdominal pain. Patient reports that she has been in a detox program for the past 3 weeks, patient reports that she detox from alcohol while being treated for pancreatitis in the hospital 3 weeks ago. Patient reports that she has been sober for 3 weeks but met up with a friend today for lunch and ended up drinking 3 drinks. Patient reports that since then, she has been having abdominal pain, reports the pain is located to her upper abdomen. Reports that she has been nauseous and has been vomiting. Patient reports that she has had a decreased appetite, she is able to drink alcohol but is unable to eat any foods or drink any water. Reports that her abdominal pain feels similar to when she was admitted in the past for this. No fever/chills. No other complaints. Related Data Home Medications Medication Instructions Recorded Confirmed levetiracetam [Keppra] 250 mg PO Q12H 03/05/18 03/05/18 metoprolol tartrate [Lopressor] 25 mg PO DAILY 03/05/18 03/05/18 Allergies Allergy/AdvReac Type Severity Reaction Status Date / Time ciprofloxacin Allergy Severe Cramping Verified 03/05/18 22:15 phenazopyridine Allergy Severe CRAMPING Verified 03/05/18 22:15 Review of Systems Except as stated in HPI: all other systems reviewed are negative [facility] Medical History Medical History Fast heart beat (Acute) Pancreatitis, alcoholic, acute (Acute) Seizure (Acute) Ulcerative colitis (Acute) Surgical History Surgical History History of tonsillectomy (Acute) Social History Social History Substance History: Active Abuse Smoking Status: Heavy tobacco smoker Tobacco Type: Cigarettes How Often Do You Have a Drink Containing Alcohol: 4 or more times a week Recent Travel in [facility] within the Last 8 Weeks: No Recent Out of Country Travel within the Last 8 Weeks: No Substance Abuse Detail Alcohol: Substance Use Status: Active Route Used Substance Abuse: By Mouth Last Used: Today Reason for Use: Sleep Immunization History Tetanus Immunization: Unsure Hx Influenza Vaccine This Season: Yes Exam Narrative Exam Narrative: GENERAL: Moderate distress SKIN: Focused skin assessment warm/dry. HEAD: Atraumatic. Normocephalic. EYES: Pupils equal and round. No scleral icterus. No injection or drainage. ENT: No nasal bleeding or discharge. Mucous membranes pink and moist. NECK: Trachea midline. No JVD. CARDIOVASCULAR: Regular rate and rhythm. No murmur appreciated. RESPIRATORY: No accessory muscle use. Clear to auscultation. Breath sounds equal bilaterally. GASTROINTESTINAL: Abdomen soft, tender to upper mid abdomen, nondistended. Hepatic and splenic margins not palpable. MUSCULOSKELETAL: No obvious deformities. No clubbing. No cyanosis. No edema. NEUROLOGICAL: Awake and alert. No obvious cranial nerve deficits. Motor grossly within normal limits. Normal speech. PSYCHIATRIC: Appropriate mood and affect; insight and judgment normal. Course Initial Documented Vital Signs Temperature 98.0 F 03/05/18 22:17 Pulse Rate 130 H 03/05/18 22:17 Respiratory Rate 18 03/05/18 22:17 Blood Pressure 110/76 03/05/18 22:17 Pulse Oximetry 98 03/05/18 22:17 Last Documented Vital Signs Temperature 98.0 F 03/05/18 22:17 Pulse Rate 120 H 03/06/18 00:10 Respiratory Rate 20 03/06/18 00:10 Blood Pressure 100/67 03/06/18 00:10 Pulse Oximetry 100 03/06/18 00:19 Critical Care Time Critical Care Time: Yes Total Critical Care Time: 30 Attestation: Aggregate critical care time was 30 minutes. Time to perform other separately billable procedures was not included in the critical care time. My time did not include minutes spent treating any other patients simultaneously or on activities that did not directly contribute to the patient's treatment. The services I provided to this patient were to treat and/or prevent clinically significant deterioration that could result in: , deterioration I provided critical care services requiring my management, as noted below: Chart data review, documentation time, medication orders and management, vital sign assessments/reviewing monitor data, ordering and reviewing lab tests, ordering and interpreting/reviewing x-rays and diagnostic studies, care of the patient and discussion of the patient with the admitting physicians. Medical Decision Making MDM Narrative Medical decision making narrative: During the course of the patients emergency department visit, the patients history, examination, and differential diagnosis were reviewed with the patient. The patient was placed on a supervisor mold construction with oximetry and frequent blood pressure monitoring. The patient had an IV access obtained and blood work sent for analysis. The patient was initially provided IVF and ativan for alcohol withdrawl symptoms. The patients laboratory studies were reviewed and remarkable for WBC 11.4, hemoglobin 10.9, hematocrit 31.8, platelets 111 Sodium 118, potassium 2.3 lipase 2,085 etoh: 245 Magnesium level is ordered. IV as well as p.o. potassium was ordered. Radiology studies were reviewed and remarkable for prominent mural thickening of the colon on the right side especially at the hepatic flexure most characteristic of colitis, questionable mild pancreatitis. Patient with most likely pancreatitis given her elevated lipase and where her pain is. Patient will require admission to the hospital for impending dt's, hyponatremia and hypokalemia case reviewed with Dr. Zamora who accepts pt to service Differential Diagnosis Differential Diagnosis: Pancreatitis, alcoholism, impending dt's, electrolyte abnormalities, cholecystitis Lab Data Lab results reviewed: Yes I reviewed the patient's lab results. Result diagrams: 03/05/18 23:55 03/05/18 23:55 Lab Results 03/05/18 03/05/18 03/05/18 Range/Units 23:55 23:55 23:55 CBC w Diff Auto diff final WBC 11.4 H (4.0-11.0) th/mm3 RBC 2.73 L (4.00-5.30) mil/mm3 Hgb 10.9 L (11.6-15.3) gm/dL Hct 31.8 L (35.0-46.0) % MCV 116.3 H (80.0-100.0) fL MCH 40.1 H (27.0-34.0) pg MCHC 34.4 (32.0-36.0) % RDW 16.9 (11.6-17.2) % Plt Count 116 L (150-450) th/mm3 MPV 8.5 (7.0-11.0) fL Neut % (Auto) 68.2 (16.0-70.0) % Lymph % (Auto) 23.0 (9.0-44.0) % [place] % (Auto) 7.5 (0.0-8.0) % Eos % (Auto) 0.2 (0.0-4.0) % Baso % (Auto) 1.1 (0.0-2.0) % Neut # (Auto) 7.8 H (1.8-7.7) th/mm3 Lymph # (Auto) 2.6 (1.0-4.8) th/mm3 [place] # (Auto) 0.9 (0.0-0.9) th/mm3 Eos # (Auto) 0.0 (0.0-0.4) th/mm3 Baso # (Auto) 0.1 (0.0-0.2) th/mm3 WBC Differential . Differential Comment . PT 13.4 H (9.8-11.6) sec INR 1.3 Ratio APTT 27.2 (24.3-30.1) sec Sodium 118 L* (136-145) meq/L Potassium 2.3 L* (3.5-5.1) meq/L Chloride 72 L (98-107) meq/L Carbon Dioxide 33.5 H (21.0-32.0) meq/L Anion Gap 13 (5-15) meq/L BUN 4 L (7-18) mg/dL Creatinine 0.77 (0.50-1.00) mg/dL Estimated GFR 84 L (>89) mL/min Random Glucose 91 (74-106) mg/dL Calcium 8.0 L (8.5-10.1) mg/dL Magnesium (1.5-2.5) mg/dL Total Bilirubin 1.8 H (0.2-1.0) mg/dL AST 126 H (15-37) U/L ALT 21 (10-53) U/L Alkaline Phosphatase 539 H (45-117) U/L Total Protein 7.9 (6.4-8.2) g/dL Albumin 2.7 L (3.4-5.0) g/dL Lipase 2085 H (73-393) U/L Urine Color (Yellw/Straw) Urine Clarity (Clear) Urine pH (5.0-8.5) Ur Specific [place] (1.002-1.035) Urine Protein (Neg-Trace) mg/dL Urine Glucose (UA) (Negative) mg/dL Urine Ketones (Negative) mg/dL Urine Occult Blood (Negative) Urine Nitrate (Negative) Urine Bilirubin (Negative) Urine Ictotest (Negative) Urine Urobilinogen (Less than 2) mg/dL Ur Leukocyte Esterase (Negative) Urine RBC (0-3) /hpf Urine WBC (0-5) /hpf Urine WBC Clumps (None) Ur Squamous Epith Cells (0-5) /hpf Micro UA Comment Urine Culture Comments Serum Alcohol (0-5) mg/dL 03/05/18 03/05/18 03/05/18 Range/Units 23:55 23:55 23:55 CBC w Diff WBC (4.0-11.0) th/mm3 RBC (4.00-5.30) mil/mm3 Hgb (11.6-15.3) gm/dL Hct (35.0-46.0) % MCV (80.0-100.0) fL MCH (27.0-34.0) pg MCHC (32.0-36.0) % RDW (11.6-17.2) % Plt Count (150-450) th/mm3 MPV (7.0-11.0) fL Neut % (Auto) (16.0-70.0) % Lymph % (Auto) (9.0-44.0) % [place] % (Auto) (0.0-8.0) % Eos % (Auto) (0.0-4.0) % Baso % (Auto) (0.0-2.0) % Neut # (Auto) (1.8-7.7) th/mm3 Lymph # (Auto) (1.0-4.8) th/mm3 [place] # (Auto) (0.0-0.9) th/mm3 Eos # (Auto) (0.0-0.4) th/mm3 Baso # (Auto) (0.0-0.2) th/mm3 WBC Differential Differential Comment PT (9.8-11.6) sec INR Ratio APTT (24.3-30.1) sec Sodium (136-145) meq/L Potassium (3.5-5.1) meq/L Chloride (98-107) meq/L Carbon Dioxide (21.0-32.0) meq/L Anion Gap (5-15) meq/L BUN (7-18) mg/dL Creatinine (0.50-1.00) mg/dL Estimated GFR (>89) mL/min Random Glucose (74-106) mg/dL Calcium (8.5-10.1) mg/dL Magnesium 1.2 L (1.5-2.5) mg/dL Total Bilirubin (0.2-1.0) mg/dL AST (15-37) U/L ALT (10-53) U/L Alkaline Phosphatase (45-117) U/L Total Protein (6.4-8.2) g/dL Albumin (3.4-5.0) g/dL Lipase (73-393) U/L Urine Color Yellow (Yellw/Straw) Urine Clarity Clear (Clear) Urine pH 6.0 (5.0-8.5) Ur Specific [place] Less/equal 1.005 (1.002-1.035) Urine Protein Trace (Neg-Trace) mg/dL Urine Glucose (UA) Negative (Negative) mg/dL Urine Ketones Negative (Negative) mg/dL Urine Occult Blood Negative (Negative) Urine Nitrate Negative (Negative) Urine Bilirubin Moderate H (Negative) Urine Ictotest Positive H (Negative) Urine Urobilinogen 4.0 H (Less than 2) mg/dL Ur Leukocyte Esterase Negative (Negative) Urine RBC 0-3 (0-3) /hpf Urine WBC 9-20 H (0-5) /hpf Urine WBC Clumps Few H (None) Ur Squamous Epith Cells 6-10 H (0-5) /hpf Micro UA Comment Culture indicated Urine Culture Comments Culture indicated Serum Alcohol 245 H (0-5) mg/dL Imaging Data Attestation: I personally reviewed and interpreted this imaging study as follows : Radiologist's impression: Abdomen/Pelvis CT 03/06/18 00:19 CONCLUSION: 1. Prominent mural thickening of the colon on the right side especially near the hepatic flexure most characteristic of a colitis. Appendix normal caliber. No abscess or obstruction. 2. Questionable mild pancreatitis. 3. Intrauterine device present. Hepatomegaly. Splenomegaly mild. Discharge Plan Discharge Disposition Patient Disposition: 30 Still Patient Discharge Details Diagnosis: Acute hyponatremia Physicians Team ED Provider: Bhavya Gastelum Primary Care Provider: UNKNOWN, Rxs /Orders / Referrals /Forms Prescriptions: No Action levetiracetam [Keppra] 250 mg Tablet 250 mg PO Q12H RF: 0 metoprolol tartrate [Lopressor] 50 mg Tablet 25 mg PO DAILY RF: 0 Status ED Status: With Doctor
[2018-03-06 00:36] LABS: Bilirubin,Urine Moderate (Negative); Clarity,Urine Clear (Clear); Color,Urine Yellow (Yellw/Straw); Glucose,Urine (UA) Negative (Negative); Leukocyte Esterase,Urine Negative (Negative); Nitrite,Urine Negative (Negative); Specific Gravity,Urine Less/Equal 1.005 (1.002-1.035)
[2018-03-06 00:47] LABS: Baso # (Auto) 0.1 th/mm3 (0.0-0.2); Baso % (Auto) 1.1 % (0.0-2.0); Eos % (Auto) 0.2 % (0.0-4.0); Hematocrit 31.8 % (35.0-46.0); Hemoglobin 10.9 gm/dL (11.6-15.3); Lymph # (Auto) 2.6 th/mm3 (1.0-4.8); Mean Corpuscular HGB Conc 34.4 % (32.0-36.0); Mean Corpuscular Hemoglobin 40.1 pg (27.0-34.0); Mean Corpuscular Volume 116.3 fL (80.0-100.0); Mean Platelet Volume 8.5 fL (7.0-11.0); Mono # (Auto) 0.9 th/mm3 (0.0-0.9); Mono % (Auto) 7.5 % (0.0-8.0); Neut # (Auto) 7.8 th/mm3 (1.8-7.7); Neut % (Auto) 68.2 % (16.0-70.0); Platelet Count 116 th/mm3 (150-450); Red Blood Count 2.73 mil/mm3 (4.00-5.30); Red Cell Distribution Width 16.9 % (11.6-17.2); White Blood Count 11.4 th/mm3 (4.0-11.0)
[2018-03-06 00:50] LABS: Ictotest,Urine Positive (Negative)
[2018-03-06 00:59] LABS: RBC,Urine 0-3 /hpf (0-3)
--- NOTE | 2018-03-06 01:57 | CT ---
EXAM DATE: 03/06/2018 1:36 AM EDT AGE/SEX: 38 years / Female INDICATIONS: Right upper quadrant pain. Nausea. Vomiting. CLINICAL DATA: This is the patient's initial encounter. Patient reports that signs and symptoms have been present for 2 days and indicates a pain score of 9/10. MEDICAL/SURGICAL HISTORY: Pancreatitis. Ulcerative colitis. None. RADIATION DOSE: 4.45 CTDI (mGy) COMPARISON: [facility], CT ABDOMEN & PELVIS W CONTRAST, 07/16/2017. . TECHNIQUE: Multiple contiguous axial images were obtained through the abdomen. Images were obtained using multiple row detector helical technique. Using automated exposure control and adjustment of the mA and/or kV according to patient size, radiation dose was kept as low as reasonably achievable to o btain optimal diagnostic quality images. DICOM format image data is available electronically for rev iew and comparison. FINDINGS: Lung bases are clear. Liver is enlarged to 21 cm in length. No focal lesions in the spleen, adrenals, left kidney. Tiny right renal calculus nonobstructing. There is some questionable There is fairly prominent mural thickening of the right colon to the hepatic flexure most characteris tic of a right-sided colitis. No pelvic masses. Intrauterine device present. Stranding of fat around the pancreas most characterist ic of a mild pancreatitis. No pseudocyst. CONCLUSION: 1. Prominent mural thickening of the colon on the right side especially near the hepatic flexure mos t characteristic of a colitis. Appendix normal caliber. No abscess or obstruction. 2. Questionable mild pancreatitis. 3. Intrauterine device present. Hepatomegaly. Splenomegaly mild. Electronically signed by: Apollo Tyler MD 03/06/2018 1:56 AM EDT
[2018-03-06 02:03] LABS: Alanine Aminotransferase 21 U/L (10-53); Albumin 2.7 g/dL (3.4-5.0); Alkaline Phosphatase 539 U/L (45-117); Anion Gap 13 meq/L (5-15); Aspartate Aminotransferase 126 U/L (15-37); Blood Urea Nitrogen 4 mg/dL (7-18); Carbon Dioxide 33.5 meq/L (21.0-32.0); Chloride 72 meq/L (98-107); Glomerular Filtration Rate 84 mL/min (>89); Glucose,Random 91 mg/dL (74-106); Lipase 2085 U/L (73-393); Total Protein 7.9 g/dL (6.4-8.2)
[2018-03-06 02:11] LABS: Potassium 2.3 meq/L (3.5-5.1); Sodium 118 meq/L (136-145)
[2018-03-06 02:15] LABS: Activated Partial Thrombo Time 27.2 sec (24.3-30.1); INR 1.3 Ratio; Prothrombin Time 13.4 sec (9.8-11.6)
[2018-03-06] MEDS ORDERED: Potassium Phosphate 500 MG Soluble Tablet PO PRN ×2 (02:34)
[2018-03-06] MEDS ORDERED: Sodium Phosphate Inj 30 MMOL in Sodium Chlor 0.9% Inj 250 ML IV.SIG PRN (02:34)
[2018-03-06] MEDS ORDERED: Potassium Chlor 40 mEq Premix 40 MEQ/100 ML PIGGYBACK IV.SIG PRN ×2 (02:34)
[2018-03-06] MEDS ORDERED: Potassium Chloride 25 MEQ Effervescent Tablet PO PRN (02:34)
[2018-03-06] MEDS ORDERED: Magnesium Sulfate Inj 4 GM in Sodium Chlor 0.9% Inj 92 ML IV.SIG PRN (02:34)
[2018-03-06] MEDS ORDERED: Potassium Chlor 20 mEq Premix 20 MEQ/100 ML PIGGYBACK IV.SIG PRN ×2 (02:34)
[2018-03-06] MEDS ORDERED: Magnesium Sulfate Inj 2 GM in Sodium Chlor 0.9% Inj 96 ML IV.SIG PRN (02:34)
[2018-03-06] MEDS ORDERED: Potassium Phosphate Inj 30 MMOL in Sodium Chlor 0.9% Inj 250 ML IV.SIG PRN (02:34)
[2018-03-06] MEDS ORDERED: Magnesium Oxide 400 MG Tablet PO PRN (02:34)
[2018-03-06] MEDS ORDERED: Bisacodyl 10 MG Supp RECTAL PRN (02:43)
[2018-03-06] MEDS ORDERED: Haloperidol Inj 5 MG/ML Ampul IV.PUSH PRN (02:46)
[2018-03-06] MEDS ORDERED: LORazepam 1 MG Tablet PO PRN (02:46)
[2018-03-06] MEDS ORDERED: Thiamine Inj 100 MG in Sodium Chlor 0.9% Inj 100 ML IV.SIG SCH (03:00)
[2018-03-06] MEDS: levETIRAcetam 250 MG Tablet PO SCH ×2 (03:12→15:00)
[2018-03-06] MEDS: Potassium Chlor 20 mEq Premix 20 MEQ/100 ML PIGGYBACK IV.SIG SCH ×2 (03:13→05:18)
[2018-03-06] MEDS ORDERED: Chlorhexidine Gluconate 2% 1 Pack (2 Cloths) TOPICAL PRN (04:00)
[2018-03-06] MEDS ORDERED: Dexmedetomidine Inj 200 MCG in Sodium Chlor 0.9% Inj 48 ML IV.CONT PRN (05:56)
--- NOTE | 2018-03-06 06:14 | P.HPCC ---
History of Present Illness Service: Critical Care Medicine Primary Care Physician: UNKNOWN Chief Complaint: abdominal pain History of Present Illness: This is a 38yF with history of etoh dependence and prior pancreatitis who presents with acute abdominal pain x a few days. to the ER physician, she stated that she was "out to lunch" with her friends and started to have sudden mid-epigastric abdominal pain. in the ER, she was found to have wbc 11k, sodium 118, K 2.3, co2 33, Cr 0.77 (baseline 0.4), tbili 1.8, ast/alt 126/21, lipase 2085 and an etoh level of 245. On my evaluation, the patient is lying in bed and does not want to participate in a history. she just moans when I ask her any questions. ROS is essentially unobtainable and the remainder of the history is obtained from the medical record. Inpatient Certification: I certify that the inpatient services were ordered in accordance with Medicare regulations governing the order. This includes certification that hospital inpatient services are reasonable and necessary and in the case of services not specified as inpatient-only under 42 CFR 419.22(n), that they are appropriately provided as inpatient services in accordance to with the 2-midnight benchmark under 43 CFR 412.3(e) Estimated Total Length of Stay (Days): 3 Plans for Post Hospital Care: Home Review of Systems unobtainable due to mental condition PMFSH - History History Provided By: Patient, Medical Record - Medical History Medical History: Medical History (Last Updated 03/06/18 @ 00:31 by Bhavya Gastelum) Fast heart beat Pancreatitis, alcoholic, acute Seizure Ulcerative colitis - Surgical History Surgical History: Surgical History (Last Reviewed 03/06/18 @ 00:31 by Bhavya Gastelum) History of tonsillectomy - Tobacco History Tobacco Use In Past 30 Days: Yes Smoking Status: Heavy tobacco smoker Tobacco Type: Cigarettes - Alcohol History How Often Do You Have a Drink Containing Alcohol: 4 or more times a week - Substance Use History Substance History: Active Abuse - Substance Use Type Alcohol Status: Active Route Used: By Mouth Last Used: Today Reason for Use: Sleep - Travel History Recent Travel in the [place] Within the Last 8 Weeks: No Recent Travel Out of the Country Within the Last 8 Weeks: No - Immunization History Tetanus Immunization: Unsure Hx Influenza Vaccine This Season: Yes Medications and Allergies Active Medications: Active Medications Al Hydroxide/Mg Hydroxide (Milk Of Xander Laura) 30 ml PO Q12H PRN PRN Reason: Mild Constipation Bisacodyl (Dulcolax Supp) 10 mg RECTAL DAILY PRN PRN Reason: SEVERE CONSITIPATION Chlorhexidine Gluconate (Chlorhexidine 2% Cloth) 3 pack TOPICAL DAILY@0400 FANNY Stop: 03/11/18 03:59 Chlorhexidine Gluconate (Chlorhexidine 2% Cloth) 3 pack TOPICAL DAILY@0400 PRN PRN Reason: Extra cloth needed Stop: 03/11/18 03:59 Famotidine (Pepcid) 20 mg PO BID FANNY Famotidine (Pepcid Pf Inj) 20 mg IV.PUSH Q12HR FANNY Folic Acid (Folic Acid) 1 mg PO DAILY FANNY Haloperidol Lactate (Haldol Inj) 1 mg IV.PUSH Q15M PRN PRN Reason: for severe agitation Potassium Chloride (Kcl 20 Meq Premix Inj) 20 meq in 100 mls @ 50 mls/hr IV.SIG Q2H FANNY Stop: 03/06/18 06:14 Last Admin: 03/06/18 05:18 Dose: 50 mls/hr Magnesium Sulfate Inj 4 gm/ (Sodium Chloride) 100 mls @ 50 mls/hr IV.SIG UNSCH PRN PRN Reason: For Magnesium 0.9 - 1.1 mg/dL Magnesium Sulfate Inj 2 gm/ (Sodium Chloride) 100 mls @ 50 mls/hr IV.SIG UNSCH PRN PRN Reason: For Magnesium 1.2 - 1.6 mg/dL Potassium Chloride (Kcl 40 Meq Premix Inj) 40 meq in 100 mls @ 25 mls/hr IV.SIG Q2H PRN PRN Reason: For Potassium 2.8 - 3.2 mEq/L Potassium Chloride (Kcl 20 Meq Premix Inj) 20 meq in 100 mls @ 50 mls/hr IV.SIG Q2H PRN PRN Reason: For Potassium 3.3 - 3.5 mEq/L Potassium Chloride (Kcl 40 Meq Premix Inj) 40 meq in 100 mls @ 25 mls/hr IV.SIG UNSCH PRN PRN Reason: For Potassium 3.3 - 3.5 mEq/L Potassium Chloride (Kcl 20 Meq Premix Inj) 20 meq in 100 mls @ 50 mls/hr IV.SIG Q2H PRN PRN Reason: For Potassium 2.8 - 3.2 mEq/L Potassium Phosphate 30 mmol/ (Sodium Chloride) 260 mls @ 42 mls/hr IV.SIG UNSCH PRN PRN Reason: SEE LABEL COMMENTS Sodium Phosphate 30 mmol/ (Sodium Chloride) 260 mls @ 42 mls/hr IV.SIG UNSCH PRN PRN Reason: For Phosphorus < 2.5 mg/dL Potassium Chloride/Sodium Chloride (Ns + Kcl 40 Meq Inj) 1,000 mls @ 42 mls/hr IV.CONT .[id number] [facility] Last Admin: 03/06/18 05:21 Dose: 42 mls/hr Thiamine HCl 100 mg/ Sodium (Chloride) 101 mls @ 100 mls/hr IV.SIG DAILY [facility] Last Infusion: 03/06/18 04:37 Dose: Infused Lactulose (Lactulose Liq) 30 ml PO DAILY PRN PRN Reason: SEVERE CONSITIPATION Levetiracetam (Keppra) 250 mg PO Q12H [facility] Last Admin: 03/06/18 03:12 Dose: 250 mg Lorazepam (Ativan) 1 mg PO Q4H PRN PRN Reason: for CIWA 8-10 Lorazepam (Ativan) 2 mg PO Q2H PRN PRN Reason: for CIWA 11-14 Lorazepam (Ativan Inj) 2 mg IV.PUSH Q2H PRN PRN Reason: for CIWA 11-14 Lorazepam (Ativan Inj) 2 mg IV.PUSH Q1H PRN PRN Reason: for CIWA 15-20 Lorazepam (Ativan Inj) 2 mg IV.PUSH Q15M PRN PRN Reason: for CIWA > 20 Lorazepam (Ativan Inj) 1 mg IV.PUSH Q4H PRN PRN Reason: for CIWA 8-10 Magnesium Oxide (Mag-Ox) 800 mg PO UNSCH PRN PRN Reason: For Magnesium 1.2 - 1.6 mg/dL Multivitamins (Theragran) 1 tab PO DAILY [facility] Ondansetron HCl (Zofran Odt) 4 mg PO Q4H PRN PRN Reason: NAUSEA OR VOMITING Potassium Bicarb/Potassium Chloride (K-Lyte Cl Eff) 50 meq PO UNSCH PRN PRN Reason: For Potassium 3.3 - 3.5 mEq/L Potassium Phosphate (K-Phos Original) 2,000 mg PO Q4H PRN PRN Reason: Phosphorus Less Than 2.5 mg/dL Potassium Phosphate (K-Phos Original) 2,000 mg PO UNSCH PRN PRN Reason: SEE LABEL COMMENTS Senna/Docusate Sodium (Cecily-Colace) 1 tab PO BID [facility] Sennosides (Senokot) 17.2 mg PO Q12H PRN PRN Reason: Moderate Constipation Sodium Chloride (Ns Flush) 2 ml IV.FLUSH PRN PRN PRN Reason: FLUSH AFTER USING IV ACCESS Sodium Chloride (Ns Flush) 2 ml IV.FLUSH PRN PRN PRN Reason: FLUSH AFTER USING IV ACCESS Sodium Chloride (Ns Flush) 2 ml IV.FLUSH BID FANNY Allergies Allergy/AdvReac Type Severity Reaction Status Date / Time ciprofloxacin Allergy Severe Cramping Verified 03/05/18 22:15 phenazopyridine Allergy Severe CRAMPING Verified 03/05/18 22:15 Home Medications Medication Instructions Recorded Confirmed Type levetiracetam [Keppra] 250 mg PO Q12H 03/05/18 03/05/18 History metoprolol tartrate [Lopressor] 25 mg PO DAILY 03/05/18 03/05/18 History Results - Labs CBC & Chem 7: 03/05/18 23:55 03/05/18 23:55 Labs: Short CBC 03/05/18 Range/Units 23:55 WBC 11.4 H (4.0-11.0) th/mm3 Hgb 10.9 L (11.6-15.3) gm/dL Hct 31.8 L (35.0-46.0) % Plt Count 116 L (150-450) th/mm3 BMP 03/05/18 23:55 Sodium 118 L* Potassium 2.3 L* Chloride 72 L Carbon Dioxide 33.5 H BUN 4 L Creatinine 0.77 Calcium 8.0 L Liver Function 03/05/18 Range/Units 23:55 Total Bilirubin 1.8 H (0.2-1.0) mg/dL AST 126 H (15-37) U/L ALT 21 (10-53) U/L Alkaline Phosphatase 539 H (45-117) U/L Albumin 2.7 L (3.4-5.0) g/dL Urine 03/05/18 Range/Units 23:55 Urine Color Yellow (Yellw/Straw) Urine Clarity Clear (Clear) Urine pH 6.0 (5.0-8.5) Ur Specific [place] Less/equal 1.005 (1.002-1.035) Urine Protein Trace (Neg-Trace) mg/dL Urine Glucose (UA) Negative (Negative) mg/dL - Imaging Impressions Abdomen/Pelvis CT 03/06/18 00:19 CONCLUSION: 1. Prominent mural thickening of the colon on the right side especially near the hepatic flexure most characteristic of a colitis. Appendix normal caliber. No abscess or obstruction. 2. Questionable mild pancreatitis. 3. Intrauterine device present. Hepatomegaly. Splenomegaly mild. Exam Vital signs: Vital Signs 03/05/18 22:17 03/06/18 00:10 03/06/18 00:19 Temperature 36.7 C Pulse Rate 130 H 120 H Respiratory Rate 18 20 Blood Pressure 110/76 100/67 Pulse Oximetry 98 100 03/06/18 03:48 03/06/18 05:23 Temperature Pulse Rate 122 H 118 H Respiratory Rate 17 16 Blood Pressure 104/58 L 98/64 L Pulse Oximetry 100 98 Intake & Output 03/05/18 03/05/18 03/06/18 06:59 18:59 06:59 Intake Total 1201 / 1201 Balance 1201 / 1201 Weight 37.7 kg Intake: IV 1201 / 1201 KCl 20 mEq Premix Inj 20 meq In 100 / 100 100 ml @ 50 mls/hr IV.SIG Q2H FANNY Rx#:[id number] NS Inj 1,000 ML @ Wide Open IV. 1000 / 1000 SIG BOLUS ONE Rx#:[id number] Thiamine Inj 100 MG In NS Inj 101 / 101 100 ML @ 100 mls/hr IV.SIG DAILY FANNY Rx#:[id number] Narrative: gen: young female who appears much older than stated age, lying in bed, in distress due to abdominal pain heent: nc. at. pupils equal, reactive, conjugate. mucous membranes are dry. neck: no jvd. trachea midline. chest: room air. equal chest rise. cv: normal rate, regular rhythm. sinus. abd: soft, generalized tenderness to palpation diffusely. no guarding, rebound. neuro: RASS -1. lying in bed. moves all extremities spontaneously. Caprini VTE Risk Assessment Caprini VTE Risk Assessment: Moderate/High Risk (score >= 2) Caprini Risk Assessment Model: Point Value = 1 Point Value = 2 Point Value = 3 Point Value = 5 Age 41-60 Minor surgery BMI > 25 kg/m2 Swollen legs Varicose veins or History of unexplained or recurrent spontaneous Oral contraceptives or hormone replacement Sepsis (< 1 month) Serious lung disease, including pneumonia (< 1 month) Abnormal pulmonary function Acute myocardial infarction Congestive heart failure (< 1 month) History of inflammatory bowel disease Medical patient at bed rest Age 61-74 Arthroscopic surgery Major open surgery (> 45 min) Laparoscopic surgery (> 45 min) Malignancy Confined to bed (> 72 hours) Immobilizing plaster cast Central venous access Age >= 75 History of VTE Family history of VTE Factor V Leiden Prothrombin [id number] Lupus anticoagulant Anticardiolipin antibodies Elevated serum homocysteine Heparin-induced thrombocytopenia Other congenital or acquired thrombophilia Stroke (< 1 month) Elective arthroplasty Hip, pelvis, or leg fracture Acute spinal cord injury (< 1 month) Prophylaxis Regimen: Total Risk Factor Score Risk Level Prophylaxis Regimen 0-1 Low Early ambulation 2 Moderate Order ONE of the following: *Sequential Compression Device (SCD) *Heparin 5000 units SQ BID 3-4 Higher Order ONE of the following medications: *Heparin 5000 units SQ TID *Enoxaparin/Lovenox 40 mg SQ daily (WT < 150 kg, CrCl > 30 mL/min) *Enoxaparin/Lovenox 30 mg SQ daily (WT < 150 kg, CrCl > 10-29 mL/min) *Enoxaparin/Lovenox 30 mg SQ BID (WT < 150 kg, CrCl > 30 mL/min) AND/OR *Sequential Compression Device (SCD) 5 or more Highest Order ONE of the following medications: *Heparin 5000 units SQ TID (Preferred with Epidurals) *Enoxaparin/Lovenox 40 mg SQ daily (WT < 150 kg, CrCl > 30 mL/min) *Enoxaparin/Lovenox 30 mg SQ daily (WT < 150 kg, CrCl > 10-29 mL/min) *Enoxaparin/Lovenox 30 mg SQ BID (WT < 150 kg, CrCl > 30 mL/min) AND *Sequential Compression Device (SCD) Assessment and Plan - Assessment and Plan Plan: Assessment: 38yF with history of etoh dependence and presents with etoh intoxication, acute pancreatitis and severe and life-threatening metabolic abnormalities including hyponatremia, hypokalemia, and organ dysfunction including acute liver dysfunction, acute kidney injury. critically ill. will need to admit to ICU for electrolyte replacement and close sodium monitoring. Given her organ dysfunction, particularly acute kidney injury, in an effort to restore adequate circulating volume, we may be forced to correct her sodium much faster than we would cautiously like to. Neuro: Etoh Intoxication Etoh Dependence Toxic Encephalopathy - frequent neuro checks - watch for etoh withdraw - start scheduled ativan 0.5mg iv q4h - CIWA - thiamine - start precedex drip for any withdraw delirium Resp: - I.S. - OOB with assist - pulmonary toilet - wean o2 by nc for goal spo2 > 90% CV: - mivf - telemetry Renal: Acute Kidney Injury - secondary to volume depletion - baseline Cr around 0.4 - daily bmp - strict i/o's - mivf FEN/GI: Acute pancreatitis Severe life-threatening hyponatremia Severe life-threatening hypokalemia Acute protein calorie malnutrition- severe Acute liver dysfunction superimposed on alcoholic cirrhosis Acute intravascular volume depletion - NPO - trend lipase - aggressive K replacement - ICU electrolyte protocol - q6h sodium - send urine osm, serum osm, urine na - most likely hypovolemic hyponatremia vs. chronic solute depletion (potomania) - NS @ 42 cc/hr - 1L LR bolus now for acute organ dysfunction secondary to severe dehydration - trend daily cmp Heme/ID: Coagulopathy secondary to liver disease Thrombocytopenia Leukocytosis - trend INR - low plt most likely secondary to liver dysfunction. 4T score: low probability for HIT. - leukocytosis most likely reactive secondary to acute pancreatitis. - no infectious etiology suspected at this time. Endo: - SSI Prophylaxis: - SCDs - lovenox - pepcid Dispo: admit to ICU. very critically ill. Critical Care time: 55 minutes, exclusive of separately billable procedures.
[2018-03-06] MEDS ORDERED: Dexmedetomidine Inj 200 MCG in Sodium Chlor 0.9% Inj 50 ML IV.CONT PRN (07:34)
[2018-03-06 09:09] LABS: Anion Gap 11 meq/L (5-15); Blood Urea Nitrogen 3 mg/dL (7-18); Carbon Dioxide 31.4 meq/L (21.0-32.0); Chloride 88 meq/L (98-107); Glomerular Filtration Rate Greater Than 89 mL/min (>89); Glucose,Random 79 mg/dL (74-106); Potassium 3.6 meq/L (3.5-5.1); Sodium 130 meq/L (136-145)
[2018-03-06] MEDS: Folic Acid 1 MG Tablet PO SCH (09:11)
[2018-03-06] MEDS: Enoxaparin Inj 30 MG/0.3 ML Syringe SQ SCH (09:12)
--- NOTE | 2018-03-06 09:12 | US ---
EXAM DATE: 03/06/2018 9:01 AM EDT AGE/SEX: 38 years / Female INDICATIONS: Abdominal pain. CLINICAL DATA: This is the patient's sequela encounter. Patient reports that signs and symptoms have been present for 3 days and indicates a pain score of 10/10. MEDICAL/SURGICAL HISTORY: Pancreatitis. ETOH. Tonsillectomy. COMPARISON: [facility], US ABDOMEN - GALLBLADDER, 06/07/2017. . MEASUREMENTS: Liver:__ 19.3 cm. Common Bile Duct:__ 3mm. Right Kidney:__ cm. FINDINGS: Liver: Generalized enlargement especially of the left hepatic lobe is noted. Increased echotexture wi thout focal lesion or ductal dilation. Portal Vein: Hepatopedal flow seen in portal vein. Common Duct: No intraluminal mass or stone visualized. Gallbladder: Thick sludge is identified in the gallbladder. There is no evidence of acoustic shadowi ng or wall thickening. Pancreas: The main pancreatic duct is clearly identified and measures 2 mm in diameter. Pancreas is o therwise unremarkable without evidence of focal mass. Right Kidney: Increased echotexture. No mass or hydronephrosis. Other: None. CONCLUSION: 1. Hepatomegaly with increased echogenicity characteristic of steatosis and/or hepatocellular diseas e. 2. No evidence of focal hepatic mass or biliary obstructive disease. 3. Gallbladder sludge. 4. No evidence of hydronephrosis. Electronically signed by: Trae Juarez MD 03/06/2018 9:11 AM EDT
[2018-03-06] MEDS: Senna/Docusate Sodium 8.6/50 MG Tablet PO SCH ×2 (09:13→20:49)
[2018-03-06] MEDS ORDERED: Desmopressin Inj 4 MCG/ML Ampul SQ ONE (09:21)
[2018-03-06] MEDS ORDERED: Sodium Chloride 0.45 % Inj 1,000 ML IV.CONT SCH (09:23)
[2018-03-06] MEDS: Chlorhexidine Gluconate 2% 1 Pack (2 Cloths) TOPICAL SCH (09:49)
[2018-03-06] MEDS: Famotidine PF Inj 20 MG/2 ML Vial IV.PUSH SCH ×2 (09:50→20:48)
[2018-03-06] MEDS: Famotidine 20 MG Tablet PO SCH ×2 (09:50→20:49)
[2018-03-06 10:18] LABS: Total Protein 5.8 g/dL (6.4-8.2)
[2018-03-06] MEDS: HYDROmorphone PF Inj 0.5 MG/0.5 ML Syringe IV.PUSH PRN ×2 (14:43→18:59)
--- NOTE | 2018-03-06 19:14 | ECG ---
Date Performed: 03/06/2018 Time Performed: 02:27:12 PTAGE: 38 years EKG: SINUS TACHYCARDIA WITH SHORT MS INTERVAL NONSPECIFIC ST & T-WAVE ABNORMALITY ABNORMAL RHYTH M ECG PREVIOUS TRACING : 11/20/2017 14.52 Since the previous tracing, no significant change noted DOCTOR: Abraham Larsen Interpretating Date/Time 03/06/2018 19:12:41
[2018-03-07] MEDS: HYDROmorphone PF Inj 0.5 MG/0.5 ML Syringe IV.PUSH PRN ×5 (02:31→22:46)
[2018-03-07] MEDS: levETIRAcetam 250 MG Tablet PO SCH ×2 (03:35→14:48)
[2018-03-07 05:03] LABS: Hemoglobin 8.3 gm/dL (11.6-15.3); Mean Corpuscular Volume 119.2 fL (80.0-100.0); White Blood Count 6.2 th/mm3 (4.0-11.0)
[2018-03-07 05:04] LABS: Mean Corpuscular HGB Conc 33.2 % (32.0-36.0); Mean Corpuscular Hemoglobin 39.6 pg (27.0-34.0); Mean Platelet Volume 8.3 fL (7.0-11.0); Platelet Count 60 th/mm3 (150-450); Red Cell Distribution Width 16.4 % (11.6-17.2)
[2018-03-07 05:11] LABS: Chloride 91 meq/L (98-107); Potassium 3.3 meq/L (3.5-5.1); Sodium 129 meq/L (136-145)
[2018-03-07 06:08] LABS: Alanine Aminotransferase 14 U/L (10-53); Albumin 1.9 g/dL (3.4-5.0); Alkaline Phosphatase 417 U/L (45-117); Anion Gap 5 meq/L (5-15); Aspartate Aminotransferase 93 U/L (15-37); Blood Urea Nitrogen 5 mg/dL (7-18); Carbon Dioxide 33.5 meq/L (21.0-32.0); Glomerular Filtration Rate Greater Than 89 mL/min (>89); Glucose,Random 76 mg/dL (74-106); Lipase 605 U/L (73-393); Total Protein 5.6 g/dL (6.4-8.2)
--- NOTE | 2018-03-07 06:37 | P.PNCC ---
Subjective Subjective Remarks/Hospital Course: Hospital Course: This is a 38yF with history of etoh dependence and prior pancreatitis who presents with acute abdominal pain x a few days. to the ER physician, she stated that she was "out to lunch" with her friends and started to have sudden mid-epigastric abdominal pain. in the ER, she was found to have wbc 11k, sodium 118, K 2.3, co2 33, Cr 0.77 (baseline 0.4), tbili 1.8, ast/alt 126/21, lipase 2085 and an etoh level of 245. On my evaluation, the patient is lying in bed and does not want to participate in a history. she just moans when I ask her any questions. ROS is essentially unobtainable and the remainder of the history is obtained from the medical record. Subjective: 03/07: clinically improving. epigastric pain persists which is adequately controlled with prn dilaudid. lipase downtrending but still 600. Sodium 129 this AM (in the past, has chronic hyponatremia with sodiums in the low 130s, so this is near baseline for her). Objective Vital Signs / I&O: Vital Signs 03/06/18 06:56 03/06/18 08:00 03/06/18 09:00 Temperature 37.2 C 37.4 C Pulse Rate 118 H 120 H 120 H Respiratory Rate 20 16 24 Blood Pressure 103/62 Pulse Oximetry 95 99 97 03/06/18 09:29 03/06/18 10:00 03/06/18 11:00 Temperature Pulse Rate 126 H 114 H 104 H Respiratory Rate 16 25 H 27 H Blood Pressure 110/50 L 111/60 105/58 L Pulse Oximetry 98 100 03/06/18 12:00 03/06/18 13:00 03/06/18 14:00 Temperature Pulse Rate 94 H 94 H 90 Respiratory Rate 17 14 30 H Blood Pressure 104/58 L 102/50 L 100/56 L Pulse Oximetry 97 97 98 03/06/18 15:00 03/06/18 16:00 03/06/18 16:55 Temperature 36.9 C Pulse Rate 96 H 82 82 Respiratory Rate 23 36 H 8 L Blood Pressure 121/72 82/49 L Pulse Oximetry 100 99 100 03/06/18 16:58 03/06/18 17:00 03/06/18 18:00 Temperature Pulse Rate 88 84 78 Respiratory Rate 19 28 H 11 L Blood Pressure 106/53 L 105/50 L Pulse Oximetry 100 100 100 03/06/18 19:00 03/06/18 19:45 03/06/18 20:00 Temperature Pulse Rate 88 76 Respiratory Rate 29 H 24 Blood Pressure 105/62 100/63 Pulse Oximetry 100 100 100 03/06/18 21:00 03/06/18 22:00 03/06/18 23:00 Temperature Pulse Rate 82 82 82 Respiratory Rate 24 25 H 37 H Blood Pressure 113/73 109/69 112/65 Pulse Oximetry 03/07/18 00:00 03/07/18 01:00 03/07/18 02:00 Temperature 36.9 C Pulse Rate 92 H 78 82 Respiratory Rate 27 H 16 15 Blood Pressure 117/64 99/58 L 104/63 Pulse Oximetry 03/07/18 03:00 03/07/18 04:00 03/07/18 05:00 Temperature 36.9 C Pulse Rate 90 88 88 Respiratory Rate 14 21 18 Blood Pressure 107/67 105/62 105/62 Pulse Oximetry 03/07/18 06:00 Temperature Pulse Rate 100 H Respiratory Rate 19 Blood Pressure 101/63 Pulse Oximetry Intake & Output 03/06/18 03/06/18 03/07/18 06:59 18:59 06:59 Intake Total 1201 / 1201 100 / 100 Balance 1201 / 1201 100 / 100 Weight 37.7 kg Intake: IV 1201 / 1201 100 / 100 KCl 20 mEq Premix Inj 20 meq In 100 / 100 100 / 100 100 ml @ 50 mls/hr IV.SIG Q2H FANNY Rx#:[id number] NS Inj 1,000 ML @ Wide Open IV. 1000 / 1000 SIG BOLUS ONE Rx#:[id number] Thiamine Inj 100 MG In NS Inj 101 / 101 100 ML @ 100 mls/hr IV.SIG DAILY FANNY Rx#:[id number] Result Diagrams: 03/07/18 04:57 03/07/18 04:57 Objective Remarks: gen: young female who appears much older than stated age, lying in bed, no acute distress. heent: nc. at. pupils equal, reactive, conjugate. mucous membranes are moist neck: no jvd. trachea midline. chest: room air. equal chest rise. cv: normal rate, regular rhythm. sinus. abd: soft, generalized tenderness to palpation diffusely although improved from yesterday. no guarding, rebound. neuro: RASS 0. lying in bed. moves all extremities spontaneously. follows commands. Assessment and Plan - Assessment and Plan Plan: Assessment: 38yF with history of etoh dependence and presents with etoh intoxication, acute pancreatitis and severe and life-threatening metabolic abnormalities including hyponatremia, hypokalemia, and organ dysfunction including acute liver dysfunction, acute kidney injury. Organ dysfunction improving. sodium slowly rising. not ready to advance diet yet, with active pancreatitis ongoing. stable for transfer out of ICU. Neuro: Etoh Intoxication- resolved Etoh Dependence Toxic Encephalopathy - frequent neuro checks - watch for etoh withdraw - scheduled ativan 0.5mg iv q4h to prevent withdraw - CIWA - thiamine Resp: - I.S. - OOB with assist - pulmonary toilet - wean o2 by nc for goal spo2 > 90% CV: - mivf - telemetry Renal: Acute Kidney Injury- resolving. - secondary to volume depletion - baseline Cr around 0.4 - daily bmp - strict i/o's - mivf FEN/GI: Acute pancreatitis Severe life-threatening hyponatremia- resolving. Severe life-threatening hypokalemia- resolved Acute protein calorie malnutrition- severe Acute liver dysfunction superimposed on alcoholic cirrhosis- slowly resolving Acute intravascular volume depletion- resolving. - NPO - trend lipase - aggressive K replacement - ICU electrolyte protocol - serial sodium - urine studies consistent with hypovolemic hyponatremia - NS @ 42 cc/hr - trend daily cmp Heme/ID: Coagulopathy secondary to liver disease Thrombocytopenia- worsening Leukocytosis- resolved - trend INR - low plt most likely secondary to liver dysfunction. 4T score: low probability for HIT. monitor for now. - leukocytosis most likely reactive secondary to acute pancreatitis. - no infectious etiology suspected at this time. Endo: - SSI Prophylaxis: - SCDs - lovenox - pepcid Dispo: transfer out of ICU. consult hospitalist service.
[2018-03-07] MEDS: Enoxaparin Inj 30 MG/0.3 ML Syringe SQ SCH (08:14)
[2018-03-07] MEDS: Senna/Docusate Sodium 8.6/50 MG Tablet PO SCH ×2 (08:14→20:41)
[2018-03-07] MEDS: Folic Acid 1 MG Tablet PO SCH (08:14)
[2018-03-07] MEDS: Famotidine PF Inj 20 MG/2 ML Vial IV.PUSH SCH ×2 (08:15→20:41)
[2018-03-07] MEDS: Thiamine Inj 100 MG in Sodium Chlor 0.9% Inj 100 ML IV.SIG SCH (09:21)
[2018-03-07] MEDS: Famotidine 20 MG Tablet PO SCH ×2 (12:21→20:36)
[2018-03-07] MEDS: Sod Chloride 0.9% Inj 1,000 ML IV.CONT SCH (13:35)
[2018-03-07] MEDS: Chlorhexidine Gluconate 2% 1 Pack (2 Cloths) TOPICAL SCH (16:38)
[2018-03-08] MEDS: HYDROmorphone PF Inj 0.5 MG/0.5 ML Syringe IV.PUSH PRN (00:57)
[2018-03-08] MEDS: levETIRAcetam 250 MG Tablet PO SCH (03:10)
[2018-03-08] MEDS: HYDROmorphone PF Inj 2 MG/ML Vial IV.PUSH PRN ×3 (03:11→07:33)
[2018-03-08] MEDS: Chlorhexidine Gluconate 2% 1 Pack (2 Cloths) TOPICAL SCH (04:49)
[2018-03-08] MEDS: Sod Chloride 0.9% Inj 1,000 ML IV.CONT SCH (07:28)
[2018-03-08] MEDS: Folic Acid 1 MG Tablet PO SCH (09:27)
[2018-03-08] MEDS: Senna/Docusate Sodium 8.6/50 MG Tablet PO SCH (09:27)
[2018-03-08] MEDS: Enoxaparin Inj 30 MG/0.3 ML Syringe SQ SCH (09:27)
[2018-03-08] MEDS: Famotidine 20 MG Tablet PO SCH (09:27)
[2018-03-08] MEDS: Thiamine Inj 100 MG in Sodium Chlor 0.9% Inj 100 ML IV.SIG SCH (09:28)
[2018-03-08] MEDS ORDERED: HYDROmorphone PF Inj 2 MG/ML Vial IV.PUSH PRN (09:37)
[2018-03-08 09:59] LABS: Baso % (Auto) 0.5 % (0.0-2.0); Eos # (Auto) 0.1 th/mm3 (0.0-0.4); Hemoglobin 8.8 gm/dL (11.6-15.3); Lymph # (Auto) 1.5 th/mm3 (1.0-4.8); Lymph % (Auto) 19.3 % (9.0-44.0); Mean Corpuscular HGB Conc 33.8 % (32.0-36.0); Mean Corpuscular Hemoglobin 39.7 pg (27.0-34.0); Mean Corpuscular Volume 117.3 fL (80.0-100.0); Mean Platelet Volume 8.3 fL (7.0-11.0); Mono # (Auto) 0.4 th/mm3 (0.0-0.9); Mono % (Auto) 5.3 % (0.0-8.0); Neut # (Auto) 5.6 th/mm3 (1.8-7.7); Neut % (Auto) 73.9 % (16.0-70.0); Platelet Count 64 th/mm3 (150-450); Red Blood Count 2.22 mil/mm3 (4.00-5.30); White Blood Count 7.6 th/mm3 (4.0-11.0)
[2018-03-08 10:08] LABS: Chloride 91 meq/L (98-107); Potassium 3.4 meq/L (3.5-5.1); Sodium 128 meq/L (136-145)
[2018-03-08 10:21] LABS: Alanine Aminotransferase 17 U/L (10-53); Albumin 2.2 g/dL (3.4-5.0); Alkaline Phosphatase 460 U/L (45-117); Anion Gap 7 meq/L (5-15); Aspartate Aminotransferase 114 U/L (15-37); Blood Urea Nitrogen 6 mg/dL (7-18); Calcium 7.4 mg/dL (8.5-10.1); Carbon Dioxide 29.7 meq/L (21.0-32.0); Glomerular Filtration Rate Greater Than 89 mL/min (>89); Glucose,Random 62 mg/dL (74-106); Lipase 416 U/L (73-393)
[2018-03-08 10:30] LABS: Platelet Morphology Normal (Normal); Target Cells 2+
[2018-03-08 13:27] VITALS: BP 99/58; PULSE 95; RESP 20; TEMP 98.2; O2SAT 100
--- NOTE | 2018-03-08 14:12 | P.DS ---
Date of admission: 03/06/18 02:32 Primary care physician: UNKNOWN Attending physician on discharge: Darshan Wyman Anticipated date of discharge: 03/08/18 Brief History from admission: This is a 38yF with history of etoh dependence and prior pancreatitis who presents with acute abdominal pain x a few days. to the ER physician, she stated that she was "out to lunch" with her friends and started to have sudden mid-epigastric abdominal pain. in the ER, she was found to have wbc 11k, sodium 118, K 2.3, co2 33, Cr 0.77 (baseline 0.4), tbili 1.8, ast/alt 126/21, lipase 2085 and an etoh level of 245. On my evaluation, the patient is lying in bed and does not want to participate in a history. she just moans when I ask her any questions. ROS is essentially unobtainable and the remainder of the history is obtained from the medical record. DS: Diagnosis - Discharge Diagnosis (1) Acute pancreatitis Status: Acute (2) Alcohol dependency Status: Acute (3) Alcohol intoxication Status: Acute (4) Hypokalemia Status: Acute (5) Acute kidney injury Status: Acute (6) Thrombocytopenia Status: Acute (7) Abnormal liver enzymes Status: Acute DS: Medications - Discharge Medications Prescriptions: chlordiazepoxide HCl 5 mg PO DIRECTED #36 cap DS: Summary Hospital Course: 38-year-old female with known history of alcohol abuse, pancreatitis, chronic hyponatremia who originally presented the hospital on 03/06/18, patient originally presented to the emergency department because of acute onset of abdominal pain. Patient states that she was having lunch with friends and suddenly developed acute upper abdominal pain. She came to emergency department for evaluation. Apparently the patient does have history of chronic alcohol abuse and has been in detox program for the last 3 weeks. She was sober for that 3 weeks and that she met up with her friend and that drinking 3 alcoholic beverages and she had sudden onset of abdominal pain. Patient came to emergency department found to have acute pancreatitis with significant electrolyte abnormalities. On presentation patient did have a sodium level of 118 patient was admitted the critical care management in ICU. She started on IV fluids, placed on CIWA protocol for alcohol withdrawal, electrolytes were replaced, she was made n.p.o. , IV fluids, pain control. CT scan was done which did show questionable mild pancreatitis. There was some mural thickening of the colon right side of the hepatic flexure which is characteristic colitis. Patient tolerated treatment well in the ICU and her sodium level returned to her normal. Critical care sign off and transferred to medical service. Upon evaluating the patient today she is doing much better. She is hungry and her diet was advanced and she tolerated diet without any abdominal pain, nausea, vomiting. Her lipase level has almost returned to normal. Patient did not require any Ativan during her stay in the ICU for alcohol withdrawals. Patient states that she does want to continue to be abstinent from alcohol. He is requesting Librium at this time. Patient clinically stable this time. Patient was seen and spoke with her father. She is planning on remaining abstinent from alcohol. Father does understand. Will discharge patient home in stable condition. - Time Spent with Patient Total time spent providing and/or coordinating discharge services: - Quality: VTE Deep Vein Thrombosis/Pulmonary Embolism Present on Admission: No Exam Vital signs: Vital Signs 03/07/18 14:00 03/07/18 15:00 03/07/18 16:00 Temperature 98.4 F Pulse Rate 104 H 90 92 H Respiratory Rate 21 21 13 Blood Pressure 116/78 Pulse Oximetry 03/07/18 16:37 03/07/18 17:00 03/07/18 18:00 Temperature Pulse Rate 86 99 H Respiratory Rate 19 16 Blood Pressure 108/72 Pulse Oximetry 03/07/18 20:00 03/08/18 00:00 03/08/18 04:00 Temperature 98.3 F 98.0 F 98.1 F Pulse Rate 84 83 83 Respiratory Rate 22 16 16 Blood Pressure 116/68 98/54 L 99/60 L Pulse Oximetry 99 100 03/08/18 08:00 03/08/18 12:00 Temperature 97.2 F L 98.2 F Pulse Rate 87 95 H Respiratory Rate 18 20 Blood Pressure 87/52 L 99/58 L Pulse Oximetry 97 100 Intake & Output 03/07/18 03/08/18 03/08/18 18:59 06:59 18:59 Intake Total 101 / 101 480 / 480 Output Total 700 / 700 300 / 300 Balance -599 / -599 180 / 180 Weight 37.2 kg Intake: IV 101 / 101 Thiamine Inj 100 MG In NS Inj 101 / 101 100 ML @ 100 mls/hr IV.SIG DAILY FANNY Rx#:[id number] Oral 0 / 0 480 / 480 Output: Urine 300 / 300 300 / 300 Stool 400 / 400 Other: # Voids 5 3 Date of Last Bowel Movement 03/06/18 03/07/18 # Incontinent Bowel Movements 1 Narrative: GENERAL: Well-developed, frail and cachectic, in no acute distress. alert and orientated, patient looks much older than she actually is HEENT: Head is normocephalic without any lesions or masses noted. Facial features are symmetric. Eyes: Pupils equal round reactive to light. Extraocular muscles are intact. Conjunctivae were clear. Oropharyngeal: Pharynx without any erythema edema. Tongue is midline without deviation. Buccal mucosa is moist without any masses or lesions NECK: Supple without any masses. Trachea midline no deviation. No JVD, no bruits are appreciated CARDIAC: Regular rhythm, regular rate. S1/S2 are heard. No murmurs gallops or rubs. LUNGS: Clear to auscultation bilaterally. No wheeze, rhonchi or rales. No use of accessory muscles on inspiration or expiration. ABDOMEN: Soft, nontender. Nondistended. Bowel sounds heard in all 4 quadrants. No organomegaly or masses. Negative rebound, negative guarding EXTREMITIES: No edema, pulses are equal bilaterally. No cyanosis or clubbing NEUROLOGY: Mood and affect appear appropriate. Cranial nerves II through XII grossly intact. Muscle strength 5/5 in upper and lower extremities bilaterally. Deep tendon reflexes are 2+ in upper and lower extremities bilaterally. Results Procedures completed during hospitalization: None Labs on day of discharge: Labs from last 24 hours 03/08/18 03/08/18 03/07/18 09:48 09:48 18:20 CBC w Diff Slide review pending WBC 7.6 RBC 2.22 L Hgb 8.8 L Hct 26.0 L MCV 117.3 H MCH 39.7 H MCHC 33.8 RDW 17.0 Plt Count 64 L MPV 8.3 Neut % (Auto) 73.9 H Lymph % (Auto) 19.3 [place] % (Auto) 5.3 Eos % (Auto) 1.0 Baso % (Auto) 0.5 Neut # (Auto) 5.6 Lymph # (Auto) 1.5 [place] # (Auto) 0.4 Eos # (Auto) 0.1 Baso # (Auto) 0.0 WBC Differential . Diff Scan Auto diff confirmed Differential Comment . Platelet Estimate Low L Platelet Morphology Normal Target Cells 2+ H Sodium 128 L 128 L Potassium 3.4 L Chloride 91 L Carbon Dioxide 29.7 Anion Gap 7 BUN 6 L Creatinine 0.27 L Estimated GFR Greater than 89 Random Glucose 62 L Calcium 7.4 L* Prot Corrected Calcium 8.0 L Total Bilirubin 2.1 H AST 114 H ALT 17 Alkaline Phosphatase 460 H Total Protein 6.0 L Albumin 2.2 L Lipase 416 H - Impressions ITS Impressions Liver Ultrasound 03/06/18 00:00 CONCLUSION: 1. Hepatomegaly with increased echogenicity characteristic of steatosis and/or hepatocellular disease. 2. No evidence of focal hepatic mass or biliary obstructive disease. 3. Gallbladder sludge. 4. No evidence of hydronephrosis. Abdomen/Pelvis CT 03/06/18 00:19 CONCLUSION: 1. Prominent mural thickening of the colon on the right side especially near the hepatic flexure most characteristic of a colitis. Appendix normal caliber. No abscess or obstruction. 2. Questionable mild pancreatitis. 3. Intrauterine device present. Hepatomegaly. Splenomegaly mild. Discharge Plan - Discharge Disposition Patient Disposition: Discharge Home - Discharge Condition Condition: Stable - Discharge Order Discharge Orders: Discharge Order (Routine); Ordered 03/08/18 Ordered By: Jhonathan Davis - Discharge Details Anticipated Discharge Date: 03/08/18 - Physicians Team Primary Care Provider: UNKNOWN, Attending Provider: Darshan Wyman
== END 2018-03-08 14:54 | disposition home or self-care (01) ==
LOC: PHED 22:13 → PHEDA 03-06 02:32 → PHICU 03-06 07:33 → PH3 03-07 21:53
PROVIDERS: ADMIT Family Medicine; ATTEND Family Medicine

== ENCOUNTER 2018-03-31 08:24 | Observation (INO) ==
[2018-03-31] MEDS ORDERED: Morphine Inj 4 MG/ML Vial IV.PUSH ONE (08:54)
[2018-03-31] MEDS ORDERED: Sod Chloride 0.9% Inj 1,000 ML IV.SIG ONE ×2 (08:54)
[2018-03-31 09:36] LABS: Baso % (Auto) 0.2 % (0.0-2.0); Eos % (Auto) 0.5 % (0.0-4.0); Hematocrit 32.3 % (35.0-46.0); Lymph # (Auto) 1.9 th/mm3 (1.0-4.8); Lymph % (Auto) 19.6 % (9.0-44.0); Mean Corpuscular Hemoglobin 35.9 pg (27.0-34.0); Mean Corpuscular Volume 105.7 fL (80.0-100.0); Mean Platelet Volume 7.4 fL (7.0-11.0); Mono # (Auto) 0.7 th/mm3 (0.0-0.9); Mono % (Auto) 7.1 % (0.0-8.0); Neut # (Auto) 7.3 th/mm3 (1.8-7.7); Neut % (Auto) 72.6 % (16.0-70.0); Platelet Count 273 th/mm3 (150-450); Red Blood Count 3.06 mil/mm3 (4.00-5.30); Red Cell Distribution Width 17.7 % (11.6-17.2); White Blood Count 9.9 th/mm3 (4.0-11.0)
[2018-03-31 10:10] LABS: Chloride 87 meq/L (98-107); Sodium 133 meq/L (136-145)
[2018-03-31 10:11] LABS: Anion Gap 8 meq/L (5-15); Blood Urea Nitrogen 9 mg/dL (7-18); Carbon Dioxide 38.3 meq/L (21.0-32.0); Glucose,Random 101 mg/dL (74-106)
[2018-03-31 10:12] LABS: Lipase 526 U/L (73-393)
[2018-03-31 10:14] LABS: Glomerular Filtration Rate 66 mL/min (>89)
[2018-03-31 10:15] LABS: Total Protein 8.9 g/dL (6.4-8.2)
[2018-03-31 10:16] LABS: Alkaline Phosphatase 393 U/L (45-117)
[2018-03-31 10:20] LABS: Alanine Aminotransferase 23 U/L (10-53)
[2018-03-31 10:24] LABS: Aspartate Aminotransferase 167 U/L (15-37)
[2018-03-31] MEDS ORDERED: Haloperidol Inj 5 MG/ML Ampul IV.PUSH PRN (11:18)
[2018-03-31] MEDS ORDERED: LORazepam 1 MG Tablet PO PRN (11:18)
--- NOTE | 2018-03-31 11:19 | ED ---
HPI General Chief Complaint: Abdominal Pain Stated Complaint: n/v/d/abd pain Time Seen by Provider: 03/31/18 08:53 Source: patient and old records reviewed Mode of arrival: ambulatory Limitations: no limitations History of Present Illness MD complaint: abdominal pain Onset (ago): day(s) (1.5) Pain Consistency: constant Location: periumbilical Severity scale (1-10): 9 Quality: aching and sharp Radiation: none Migration to: no migration Relieving factors: nothing Exacerbating factors: other (drank the day prior to the onset of her SSX) Context: history of similar episodes (h/o pancreatitis) Associated symptoms: nausea, vomiting and other (Decreased urinary output and carpal spasms) Related Data Home Medications Medication Instructions Recorded Confirmed levetiracetam [Keppra] 250 mg PO Q12H 03/05/18 03/31/18 furosemide [Lasix] 20 mg PO DAILY 03/31/18 03/31/18 metoprolol tartrate 25 mg PO BID 03/31/18 03/31/18 spironolactone 25 mg PO DAILY 03/31/18 03/31/18 Allergies Allergy/AdvReac Type Severity Reaction Status Date / Time ciprofloxacin Allergy Severe Cramping Verified 03/31/18 08:39 phenazopyridine Allergy Severe CRAMPING Verified 03/31/18 08:39 Review of Systems ROS: all other systems reviewed are negative [facility] Medical History Medical History Irritable bowel syndrome (Acute) Fast heart beat (Acute) Pancreatitis, alcoholic, acute (Acute) Seizure (Acute) Ulcerative colitis (Acute) Surgical History Surgical History History of tonsillectomy (Acute) Social History Social History Substance History: Active Abuse Second Hand Smoke Exposure: Yes Smoking Status: Current every day smoker Tobacco Type: Cigarettes How Often Do You Have a Drink Containing Alcohol: 4 or more times a week Recent Travel in [facility] within the Last 8 Weeks: No Recent Out of Country Travel within the Last 8 Weeks: No Substance Abuse Detail Alcohol: Substance Use Status: Active Route Used Substance Abuse: By Mouth Substance Frequency: Liquor, daily Marijuana: Substance Use Status: Active Route Used Substance Abuse: Inhalation Immunization History Tetanus Immunization: Unsure Hx Influenza Vaccine This Season: No Exam Const General: cooperative Nutritional Appearance: thin Orientation: alert, awake and oriented x3 HENMT Head: normal to inspection, normocephalic and atraumatic Mouth: moist mucous membranes Eyes Alignment and Position: alignment normal and position abnormal Conjunctivae: conjunctivae normal Sclera: sclerae normal EOM: EOM intact bilaterally Neck Neck: normal visual inspection and full ROM Chest Chest: normal inspection of the chest Resp Effort & Inspection: normal respiratory effort and able to speak in complete sentences Auscultation: clear to auscultation bilaterally Cardio Rate: tachycardic Rhythm: regular rhythm GI Inspection: normal to inspection Palpation: tender Back/Spine/Pelvis Cervical Spine: cervical ROM normal Thoracic/Lumbar Spine: thoraco-lumbar ROM normal Skin General: no rashes or lesions noted and turgor normal Neuro General: alert, awake, oriented x3, moves all extremities and CN's II-XI intact bilaterally Extrem General: normal to inspection and full ROM Psych Appearance: grossly normal Speech and Movement: speech and movement normal Mood: congruent mood Affect: normal affect Attitude: cooperative Thought Process: normal Thought Content: normal Judgment: judgment good Course Reevaluation(s) Reevaluation #1: Patient reports that her nausea has completely resolved. She continues to complain with abdominal pain. I discussed disposition. The patient feels that she needs to be admitted to the hospital because of continued abdominal pain, difficulty tolerating oral fluids and decreased urinary output. Time: 11:05 Consultations Consultation #1: Dr. Avila Time: 11:16 Initial Documented Vital Signs Temperature 99.0 F 03/31/18 08:39 Pulse Rate 135 H 03/31/18 08:39 Respiratory Rate 18 03/31/18 08:39 Blood Pressure 121/76 03/31/18 08:39 Pulse Oximetry 99 03/31/18 08:39 Last Documented Vital Signs Temperature 99.0 F 03/31/18 08:39 Pulse Rate 108 H 03/31/18 10:40 Respiratory Rate 22 03/31/18 10:40 Blood Pressure 114/73 03/31/18 10:40 Pulse Oximetry 100 03/31/18 10:40 Medical Decision Making [facility] Narrative Medical decision making narrative: This is a patient with a known history of alcohol pancreatitis who presents to us today admitting that she had a few drinks 2 days ago and had recurrence of upper abdominal pain associated with nausea and vomiting the following day. Her symptoms persisted causing her to present to us today. I gave her 2 L of IV fluid in the emergency department because of an initial heart rate of 135. Her nausea was treated with Zofran and her pain was treated with morphine. Routine abdominal pain labs have been ordered. POC Test Results POC Urine Results: Negative Lab Data Lab results reviewed: Yes I reviewed the patient's lab results. Result diagrams: 03/31/18 09:10 03/31/18 09:10 Lab Results 03/31/18 03/31/18 03/31/18 Range/Units 09:10 09:10 09:10 CBC w Diff Auto diff final WBC 9.9 (4.0-11.0) th/mm3 RBC 3.06 L (4.00-5.30) mil/mm3 Hgb 11.0 L (11.6-15.3) gm/dL Hct 32.3 L (35.0-46.0) % MCV 105.7 H (80.0-100.0) fL MCH 35.9 H (27.0-34.0) pg MCHC 34.0 (32.0-36.0) % RDW 17.7 H (11.6-17.2) % Plt Count 273 D (150-450) th/mm3 MPV 7.4 (7.0-11.0) fL Neut % (Auto) 72.6 H (16.0-70.0) % Lymph % (Auto) 19.6 (9.0-44.0) % [place] % (Auto) 7.1 (0.0-8.0) % Eos % (Auto) 0.5 (0.0-4.0) % Baso % (Auto) 0.2 (0.0-2.0) % Neut # (Auto) 7.3 (1.8-7.7) th/mm3 Lymph # (Auto) 1.9 (1.0-4.8) th/mm3 [place] # (Auto) 0.7 (0.0-0.9) th/mm3 Eos # (Auto) 0.0 (0.0-0.4) th/mm3 Baso # (Auto) 0.0 (0.0-0.2) th/mm3 WBC Differential . Differential Comment . Sodium 133 L (136-145) meq/L Potassium 3.0 L (3.5-5.1) meq/L Chloride 87 L (98-107) meq/L Carbon Dioxide 38.3 H (21.0-32.0) meq/L Anion Gap 8 (5-15) meq/L BUN 9 (7-18) mg/dL Creatinine 0.95 (0.50-1.00) mg/dL Estimated GFR 66 L (>89) mL/min Random Glucose 101 (74-106) mg/dL Lactic Acid 1.8 (0.4-2.0) mmol/L Calcium 9.0 (8.5-10.1) mg/dL Total Bilirubin 1.7 H (0.2-1.0) mg/dL Direct Bilirubin 1.0 H (0.0-0.2) mg/dL Indirect Bilirubin 0.7 (0.0-0.8) mg/dL AST 167 H (15-37) U/L ALT 23 (10-53) U/L Alkaline Phosphatase 393 H (45-117) U/L Total Protein 8.9 H (6.4-8.2) g/dL Albumin 3.0 L (3.4-5.0) g/dL Lipase 526 H (73-393) U/L Serum Alcohol Less than 3 (0-5) mg/dL Discharge Plan Discharge Disposition Patient Disposition: 30 Still Patient Discharge Details Diagnosis: Hypokalemia, Abdominal pain Physicians Team ED Provider: Linda Hoover Primary Care Provider: UNKNOWN, Rxs /Orders / Referrals /Forms Prescriptions: No Action levetiracetam [Keppra] 250 mg Tablet 250 mg PO Q12H RF: 0 spironolactone 25 mg Tablet 25 mg PO DAILY RF: 0 furosemide [Lasix] 20 mg Tablet 20 mg PO DAILY RF: 0 metoprolol tartrate 25 mg Tablet 25 mg PO BID RF: 0 Discharge Interventions Interventions: Vital Signs Last Done: 03/31/18 10:40 Status ED Status: With Doctor
[2018-03-31] MEDS ORDERED: Thiamine Inj 100 MG in Sodium Chlor 0.9% Inj 100 ML IV.SIG SCH (11:30)
[2018-03-31] MEDS ORDERED: Potassium Chlor 40 mEq Premix 40 MEQ/100 ML PIGGYBACK IV.SIG ONE (11:34)
--- NOTE | 2018-03-31 11:39 | P.HPIM ---
History of Present Illness Primary Care Physician: UNKNOWN Chief Complaint: Abdominal pain History of Present Illness: This patient is a 38-year-old female with known history of alcohol dependency who comes in hospital with increased abdominal pain over the last 1-1/2 days. The pain is in the lower abdomen and radiating laterally. Is associated with nausea and vomiting which is nonbloody. Patient also complains of diarrhea starting last 24 hour hours. His loose watery diarrhea. She has a history of alcohol dependency but reports sobriety for 2 weeks up until the day before admission she had a binge of alcohol intake. She has not had any fevers or chills. She is frequently in the hospital for similar complaints. She does report adherence with her Keppra, Aldactone, Lasix and metoprolol. Notably she is tachycardic, hypotensive and tachypneic. Patient is recommended for further evaluation treatment due to abdominal pain with signs and symptoms of sepsis. - Diagnosis (1) Abdominal pain (2) Tachycardia (3) Tachypnea (4) Hypokalemia (5) LFT elevation (6) Alcohol dependency (7) Diarrhea Review of Systems All other systems reviewed negative except as stated in HPI PMFSH - History History Provided By: Patient - Medical History Medical History: Medical History (Last Reviewed 03/31/18 @ 11:38 by Aida Avila MD) Irritable bowel syndrome Fast heart beat Pancreatitis, alcoholic, acute Seizure Ulcerative colitis - Surgical History Surgical History: Surgical History (Last Reviewed 03/31/18 @ 11:38 by Aida Avila MD) History of tonsillectomy - Family History Family History: Family History (Last Updated 03/31/18 @ 11:38 by Aida Avila MD) Other DM2 (diabetes mellitus, type 2) - Tobacco History Second Hand Smoke Exposure: Yes Tobacco Use In Past 30 Days: Yes Smoking Status: Current every day smoker Tobacco Type: Cigarettes - Alcohol History How Often Do You Have a Drink Containing Alcohol: 4 or more times a week - Substance Use History Substance History: Active Abuse - Substance Use Type Alcohol Status: Active Route Used: By Mouth Frequency: Liquor, daily Marijuana Status: Active Route Used: Inhalation - Travel History Recent Travel in the [place] Within the Last 8 Weeks: No Recent Travel Out of the Country Within the Last 8 Weeks: No - Immunization History Tetanus Immunization: Unsure Hx Influenza Vaccine This Season: No Medications and Allergies Active Medications: Active Medications Clonidine HCl (Catapres) 0.1 mg PO Q6H PRN PRN Reason: For SBP >/= 180, DBP >/= 100 Flumazenil (Romazecon Inj) 0.2 mg IV.PUSH Q1M PRN PRN Reason: OVERSEDATION Haloperidol Lactate (Haldol Inj) 1 mg IV.PUSH Q15M PRN PRN Reason: for severe agitation Thiamine HCl 500 mg/ Sodium (Chloride) 255 mls @ 62.5 mls/hr IV.SIG Q8H FANNY Stop: 04/02/18 11:59 Thiamine HCl 500 mg/ Sodium (Chloride) 505 mls @ 21 mls/hr IV.SIG Q24H FANNY Stop: 04/07/18 11:17 Thiamine HCl 100 mg/ Sodium (Chloride) 101 mls @ 100 mls/hr IV.SIG DAILY FANNY Stop: 04/03/18 11:29 Sodium Chloride (Ns Inj) 1,000 mls @ 100 mls/hr IV.CONT .Q10H FANNY Lorazepam (Ativan) 1 mg PO Q4H PRN PRN Reason: for CIWA 8-10 Lorazepam (Ativan) 2 mg PO Q2H PRN PRN Reason: for CIWA 11-14 Lorazepam (Ativan Inj) 2 mg IV.PUSH Q2H PRN PRN Reason: for CIWA 11-14 Lorazepam (Ativan Inj) 2 mg IV.PUSH Q1H PRN PRN Reason: for CIWA 15-20 Lorazepam (Ativan Inj) 2 mg IV.PUSH Q15M PRN PRN Reason: for CIWA > 20 Lorazepam (Ativan Inj) 1 mg IV.PUSH Q4H PRN PRN Reason: for CIWA 8-10 Morphine Sulfate (Morphine Inj) 2 mg IV.PUSH Q4H PRN PRN Reason: pain 1 -10 Ondansetron HCl (Zofran Inj) 4 mg IV.PUSH Q6H PRN PRN Reason: NAUSEA OR VOMITING Sodium Chloride (Ns Flush) 2 ml IV.FLUSH PRN PRN PRN Reason: FLUSH AFTER USING IV ACCESS Allergies Allergy/AdvReac Type Severity Reaction Status Date / Time ciprofloxacin Allergy Severe Cramping Verified 03/31/18 08:39 phenazopyridine Allergy Severe CRAMPING Verified 03/31/18 08:39 Home Medications Medication Instructions Recorded Confirmed Type levetiracetam [Keppra] 250 mg PO Q12H 03/05/18 03/31/18 History furosemide [Lasix] 20 mg PO DAILY 03/31/18 03/31/18 History metoprolol tartrate 25 mg PO BID 03/31/18 03/31/18 History spironolactone 25 mg PO DAILY 03/31/18 03/31/18 History Exam Vital signs: Vital Signs 03/31/18 08:39 03/31/18 09:20 03/31/18 10:40 Temperature 99.0 F Pulse Rate 135 H 124 H 108 H Respiratory Rate 18 26 H 22 Blood Pressure 121/76 100/69 114/73 Pulse Oximetry 99 100 100 Intake & Output 03/30/18 03/31/18 03/31/18 18:59 06:59 18:59 Intake Total 1999 Balance 1999 Weight 34.6 kg Intake: IV 1999 NS Inj 1,000 ML @ Wide Open IV. 1999 SIG BOLUS ONE Rx#:[id number] Results - Labs CBC & Chem 7: 03/31/18 09:10 03/31/18 09:10 Labs: Short CBC 03/31/18 Range/Units 09:10 WBC 9.9 (4.0-11.0) th/mm3 Hgb 11.0 L (11.6-15.3) gm/dL Hct 32.3 L (35.0-46.0) % Plt Count 273 D (150-450) th/mm3 BMP 03/31/18 09:10 Sodium 133 L Potassium 3.0 L Chloride 87 L Carbon Dioxide 38.3 H BUN 9 Creatinine 0.95 Calcium 9.0 Liver Function 03/31/18 Range/Units 09:10 Total Bilirubin 1.7 H (0.2-1.0) mg/dL Direct Bilirubin 1.0 H (0.0-0.2) mg/dL AST 167 H (15-37) U/L ALT 23 (10-53) U/L Alkaline Phosphatase 393 H (45-117) U/L Albumin 3.0 L (3.4-5.0) g/dL Caprini VTE Risk Assessment Caprini VTE Risk Assessment: No/Low Risk (score <= 1) Caprini Risk Assessment Model: Point Value = 1 Point Value = 2 Point Value = 3 Point Value = 5 Age 41-60 Minor surgery BMI > 25 kg/m2 Swollen legs Varicose veins or History of unexplained or recurrent spontaneous Oral contraceptives or hormone replacement Sepsis (< 1 month) Serious lung disease, including pneumonia (< 1 month) Abnormal pulmonary function Acute myocardial infarction Congestive heart failure (< 1 month) History of inflammatory bowel disease Medical patient at bed rest Age 61-74 Arthroscopic surgery Major open surgery (> 45 min) Laparoscopic surgery (> 45 min) Malignancy Confined to bed (> 72 hours) Immobilizing plaster cast Central venous access Age >= 75 History of VTE Family history of VTE Factor V Leiden Prothrombin [id number] Lupus anticoagulant Anticardiolipin antibodies Elevated serum homocysteine Heparin-induced thrombocytopenia Other congenital or acquired thrombophilia Stroke (< 1 month) Elective arthroplasty Hip, pelvis, or leg fracture Acute spinal cord injury (< 1 month) Prophylaxis Regimen: Total Risk Factor Score Risk Level Prophylaxis Regimen 0-1 Low Early ambulation 2 Moderate Order ONE of the following: *Sequential Compression Device (SCD) *Heparin 5000 units SQ BID 3-4 Higher Order ONE of the following medications: *Heparin 5000 units SQ TID *Enoxaparin/Lovenox 40 mg SQ daily (WT < 150 kg, CrCl > 30 mL/min) *Enoxaparin/Lovenox 30 mg SQ daily (WT < 150 kg, CrCl > 10-29 mL/min) *Enoxaparin/Lovenox 30 mg SQ BID (WT < 150 kg, CrCl > 30 mL/min) AND/OR *Sequential Compression Device (SCD) 5 or more Highest Order ONE of the following medications: *Heparin 5000 units SQ TID (Preferred with Epidurals) *Enoxaparin/Lovenox 40 mg SQ daily (WT < 150 kg, CrCl > 30 mL/min) *Enoxaparin/Lovenox 30 mg SQ daily (WT < 150 kg, CrCl > 10-29 mL/min) *Enoxaparin/Lovenox 30 mg SQ BID (WT < 150 kg, CrCl > 30 mL/min) AND *Sequential Compression Device (SCD) Assessment and Plan - Assessment (1) Abdominal pain Code(s): R10.9 - Unspecified abdominal pain Status: Acute Plan: The multifactorial due to enteritis versus pancreatitis (2) Tachycardia Code(s): R00.0 - Tachycardia, unspecified Status: Acute Plan: Due to dehydration, continue IV hydration and follow-up clinically Continue telemetry (3) Tachypnea Code(s): R06.82 - Tachypnea, not elsewhere classified Status: Acute Plan: Multifactorial due to pain and nausea vomiting Continue with surveillance O2 as needed (4) Hypokalemia Code(s): E87.6 - Hypokalemia Status: Acute Plan: We will replace in follow-up (5) LFT elevation Code(s): R94.5 - Abnormal results of liver function studies Status: Acute Plan: Etiology may be related to alcohol CT abdomen pelvis (6) Alcohol dependency Code(s): F10.20 - Alcohol dependence, uncomplicated Status: Acute Plan: Patient multiple relapses Patient will continue with CIWA protocol Follow-up electrolytes She reports adherence with Aldactone and Lasix at home which we will resume when her blood pressure resolves (7) Diarrhea Code(s): R19.7 - Diarrhea, unspecified Status: Acute Plan: Etiology unclear Follow-up stool studies CT abd and pelvis pending. Patient with tachycardia and tachypnea and hypotension and may meet sepsis criteria empiric vanco (1) Abdominal pain Qualifiers: Abdominal location: upper abdomen, unspecified Qualified Code(s): R10.10 - Upper abdominal pain, unspecified
[2018-03-31 11:42] LABS: Magnesium 0.9 mg/dL (1.5-2.5)
[2018-03-31 11:46] LABS: Phosphorus 3.9 mg/dL (2.5-4.9)
[2018-03-31 13:03] LABS: Bilirubin,Urine Small (Negative); Clarity,Urine Clear (Clear); Color,Urine Yellow (Yellw/Straw); Glucose,Urine (UA) Negative (Negative); Leukocyte Esterase,Urine Negative (Negative); Nitrite,Urine Negative (Negative); PH,Urine 6.5 (5.0-8.5); Urobilinogen,Urine 8 or Greater mg/dL (Less than 2)
--- NOTE | 2018-03-31 13:08 | CT ---
EXAM DATE: 03/31/2018 12:50 PM EDT AGE/SEX: 38 years / Female INDICATIONS: Diffuse abdominal pain with nausea, vomiting and diarrhea. CLINICAL DATA: This is the patient's initial encounter. Patient reports that signs and symptoms have been present for 2 days and indicates a pain score of 4/10. MEDICAL/SURGICAL HISTORY: Pancreatitis. Irritable bowel syndrome. Ulcerative colitis. Tonsill ectomy. RADIATION DOSE: 4.99 CTDI (mGy) COMPARISON: [facility], CT ABDOMEN & PELVIS W/O CONTRAST, 03/06/2018. . TECHNIQUE: Multiple contiguous axial images were obtained through the abdomen. Images were obtained using multiple row detector helical technique. Using automated exposure control and adjustment of the mA and/or kV according to patient size, radiation dose was kept as low as reasonably achievable to o btain optimal diagnostic quality images. DICOM format image data is available electronically for rev iew and comparison. FINDINGS: LOWER LUNGS: The visualized lower lungs are clear. LIVER: Redemonstration of hepatomegaly. No significant intrahepatic ductal dilatation. The bladder i s mildly distended but otherwise unremarkable. SPLEEN: Spleen is borderline enlarged measuring 13 cm. PANCREAS: Grossly unremarkable. KIDNEYS: Focal 2 mm calyceal calcification in the mid right kidney. Kidneys otherwise symmetrical in size without hydronephrosis or significant contour deforming abnormality. ADRENAL GLANDS: Unremarkable. AORTA: Ashwini-aneurysmal. BOWEL/MESENTERY: Mild sigmoid diverticulosis. Several loops of nondistended fluid-filled small bowel primarily in the left lower quadrant. Recently noted right colonic wall thickening has nearly resolv ed. Appendix is visualized and normal in appearance. There is slight diffuse mesenteric edema. No sig nificant free fluid or drainable fluid collection. ABDOMINAL WALL: Intact. RETROPERITONEUM: Subcentimeter retroperitoneal nodes do not meet CT size criteria. BLADDER: Contours are smooth. REPRODUCTIVE: IUD in place. BONY STRUCTURES: Unremarkable. CONCLUSION: 1. Hepatomegaly and borderline splenomegaly. Differential considerations include hepatic steatosis v ersus medical liver disease. 2. Near interval resolution of right-sided colitis since recent CT exam. Multiple nondilated fluid-f illed loops of small bowel particularly in the left lower quadrant. This is nonspecific but may refle ct developing adynamic ileus or enteritis. Overall, evaluation of the bowel is limited due to lack of IV and oral contrast. 3. Normal appendix. 4. Ancillary findings include nonobstructing 2 mm right renal calyceal calculus, sigmoid diverticulo sis and IUD in place. Electronically signed by: Juan Alberto Islas MD 03/31/2018 1:06 PM EDT
[2018-03-31 13:11] LABS: Amphetamine Screen,Urine Neg (Neg); Barbiturate Screen,Urine Neg (Neg); Cannabinoid Screen,Urine Pos (Neg); Cocaine Screen,Urine Neg (Neg)
[2018-03-31 13:12] LABS: Ictotest,Urine Positive (Negative)
[2018-03-31 13:13] LABS: WBC,Urine 0-5 /hpf (0-5)
[2018-03-31 13:20] LABS: Opiate Screen,Urine Pos (Neg)
[2018-03-31] MEDS: Folic Acid 1 MG Tablet PO SCH (13:32)
[2018-03-31] MEDS: levETIRAcetam 250 MG Tablet PO SCH ×2 (13:32→22:32)
[2018-03-31] MEDS: Sod Chloride 0.9% Inj 1,000 ML IV.CONT SCH ×2 (13:58→22:13)
[2018-03-31] MEDS: Morphine Sulfate Inj 2 MG/ML Vial IV.PUSH PRN ×3 (14:03→22:29)
[2018-03-31] MEDS: Potassium Chlor 20 mEq Premix 20 MEQ/100 ML PIGGYBACK IV.SIG SCH ×2 (14:07→16:48)
[2018-03-31] MEDS: Thiamine Inj 500 MG in Sodium Chlor 0.9% Inj 250 ML IV.SIG SCH ×2 (15:23→22:28)
[2018-04-01] MEDS: Morphine Sulfate Inj 2 MG/ML Vial IV.PUSH PRN ×4 (02:28→16:54)
[2018-04-01] MEDS: Thiamine Inj 500 MG in Sodium Chlor 0.9% Inj 250 ML IV.SIG SCH ×2 (05:37→13:05)
[2018-04-01 06:10] LABS: Baso % (Auto) 0.3 % (0.0-2.0); Eos # (Auto) 0.1 th/mm3 (0.0-0.4); Eos % (Auto) 1.2 % (0.0-4.0); Hematocrit 24.5 % (35.0-46.0); Hemoglobin 8.1 gm/dL (11.6-15.3); Lymph # (Auto) 2.1 th/mm3 (1.0-4.8); Lymph % (Auto) 34.4 % (9.0-44.0); Mean Corpuscular HGB Conc 32.9 % (32.0-36.0); Mean Corpuscular Volume 109.5 fL (80.0-100.0); Mean Platelet Volume 6.8 fL (7.0-11.0); Mono # (Auto) 0.3 th/mm3 (0.0-0.9); Mono % (Auto) 5.5 % (0.0-8.0); Neut # (Auto) 3.6 th/mm3 (1.8-7.7); Neut % (Auto) 58.6 % (16.0-70.0); Platelet Count 135 th/mm3 (150-450); Red Blood Count 2.24 mil/mm3 (4.00-5.30); Red Cell Distribution Width 17.4 % (11.6-17.2); White Blood Count 6.1 th/mm3 (4.0-11.0)
[2018-04-01 07:12] LABS: Alanine Aminotransferase 19 U/L (10-53); Alkaline Phosphatase 263 U/L (45-117); Anion Gap 6 meq/L (5-15); Aspartate Aminotransferase 98 U/L (15-37); Blood Urea Nitrogen 6 mg/dL (7-18); Calcium 7.3 mg/dL (8.5-10.1); Chloride 105 meq/L (98-107); Glomerular Filtration Rate Greater Than 89 mL/min (>89); Glucose,Random 77 mg/dL (74-106); Lipase 212 U/L (73-393); Sodium 139 meq/L (136-145); Total Protein 5.7 g/dL (6.4-8.2)
[2018-04-01] MEDS: Potassium Chlor 20 mEq Premix 20 MEQ/100 ML PIGGYBACK IV.SIG SCH ×2 (08:05→10:04)
[2018-04-01] MEDS: Folic Acid 1 MG Tablet PO SCH (08:06)
[2018-04-01] MEDS ORDERED: Mag Sulf 1 gm/100 ml Premix 100 ML IV.SIG ONE (09:00)
[2018-04-01] MEDS ORDERED: Calcium Gluconate Inj 1 GM in Dextrose 5% in Water Inj 100 ML IV.SIG ONE ×2 (09:00)
[2018-04-01] MEDS: levETIRAcetam 250 MG Tablet PO SCH (11:06)
[2018-04-01 12:53] LABS: Baso % (Auto) 0.1 % (0.0-2.0); Eos # (Auto) 0.1 th/mm3 (0.0-0.4); Eos % (Auto) 0.8 % (0.0-4.0); Hematocrit 26.7 % (35.0-46.0); Hemoglobin 8.6 gm/dL (11.6-15.3); Lymph % (Auto) 29.3 % (9.0-44.0); Mean Corpuscular HGB Conc 32.2 % (32.0-36.0); Mean Corpuscular Hemoglobin 35.1 pg (27.0-34.0); Mean Platelet Volume 6.4 fL (7.0-11.0); Mono # (Auto) 0.3 th/mm3 (0.0-0.9); Neut # (Auto) 4.4 th/mm3 (1.8-7.7); Neut % (Auto) 65.8 % (16.0-70.0); Platelet Count 130 th/mm3 (150-450); Red Blood Count 2.45 mil/mm3 (4.00-5.30); Red Cell Distribution Width 17.5 % (11.6-17.2); White Blood Count 6.8 th/mm3 (4.0-11.0)
--- NOTE | 2018-04-01 14:13 | P.PNIM ---
Subjective Interval history: Patient states she is feeling anxious, but her abdominal pain is improving, she feels less bloated. She states that she feels hungry and is ready to try food. She denies any nausea or vomiting this morning. Physical Exam Vital signs: Vital Signs 03/31/18 15:40 03/31/18 16:00 03/31/18 19:37 Temperature 98.3 F 98.4 F Pulse Rate 87 96 H 84 Respiratory Rate 18 20 Blood Pressure 94/53 L 97/52 L Pulse Oximetry 97 99 03/31/18 19:45 04/01/18 00:00 04/01/18 04:00 Temperature 97.1 F L 96.7 F L Pulse Rate 98 H 84 85 Respiratory Rate 16 16 Blood Pressure 106/64 109/56 L Pulse Oximetry 99 93 L 04/01/18 08:00 04/01/18 09:00 04/01/18 12:00 Temperature 97.4 F L 97.3 F L Pulse Rate 90 81 87 Respiratory Rate 17 16 Blood Pressure 102/80 102/57 L Pulse Oximetry 99 99 Intake & Output 03/31/18 04/01/18 04/01/18 18:59 06:59 18:59 Intake Total 3560 / 3560 2190 / 2190 1665 / 1665 Balance 3560 / 3560 2190 / 2190 1665 / 1665 Weight 34.6 kg 34.6 kg Intake: IV 3200 / 3200 1510 / 1510 1665 / 1665 NS Inj 1,000 ML @ 100 mls/hr IV 1000 / 1000 1000 / 1000 .CONT .Q10H FANNY Rx#:[id number] Calcium Gluconate Inj 1 GM In 110 / 110 D5W Inj 100 ML @ 110 mls/hr IV. SIG ONCE ONE Rx#:[id number] LR 1000 mL Inj 1,000 ML @ Wide 1000 / 1000 Open IV.SIG BOLUS ONE Rx#: [id number] Magnesium Sulfate 1 gm/D5W 100 100 / 100 ml Premix 100 ML @ 100 mls/hr IV.SIG ONCE ONE Rx#:[id number] KCl 20 mEq Premix Inj 20 meq In 200 / 200 200 / 200 100 ml @ 50 mls/hr IV.SIG Q2H FANNY Rx#:[id number] NS Inj 1,000 ML @ Wide Open IV. 1999 SIG BOLUS ONE Rx#:[id number] Thiamine Inj 500 MG In NS Inj 510 / 510 255 / 255 250 ML @ 62.5 mls/hr IV.SIG Q8H FANNY Rx#:[id number] Oral 360 / 360 680 / 680 Other: # Voids 1 1 Date of Last Bowel Movement 03/31/18 03/31/18 # Bowel Movements 0 Weight On Admission 34.6 kg Narrative: GENERAL: AAOx3, no acute distress, thin, pale SKIN: Warm and dry. No rashes HEAD: Atruamtic, normocephalic. EYES: No scleral icterus. No injection or drainage. ENT: Moist mucous membranes, patent nares, no erythema of oropharynx. NECK: Supple, trachea midline. No JVD or lymphadenopathy. Normal thyroid. CARDIOVASCULAR: Regular rate and rhythm. No murmurs, gallops, or rubs. RESPIRATORY: Breath sounds clear equal bilaterally. No crackles or wheezes. No accessory muscle use. GASTROINTESTINAL: Abdomen soft, non-tender, nondistended, normal active bowel sounds MUSCULOSKELETAL: No cyanosis, or edema. NEURO: CN II-XII grossly intact, no focal deficits, no slurring of speech Results - Labs CBC & Chem 7: 04/01/18 12:30 04/01/18 05:50 Laboratory Results - last 24 hr 03/31/18 04/01/18 04/01/18 14:45 05:30 05:50 CBC w Diff Auto diff final WBC 6.1 RBC 2.24 L Hgb 8.1 L D Hct 24.5 L MCV 109.5 H D MCH 36.0 H MCHC 32.9 RDW 17.4 H Plt Count 135 L D MPV 6.8 L Neut % (Auto) 58.6 Lymph % (Auto) 34.4 [place] % (Auto) 5.5 Eos % (Auto) 1.2 Baso % (Auto) 0.3 Neut # (Auto) 3.6 Lymph # (Auto) 2.1 [place] # (Auto) 0.3 Eos # (Auto) 0.1 Baso # (Auto) 0.0 WBC Differential . Differential Comment . Sodium Potassium Chloride Carbon Dioxide Anion Gap BUN Creatinine Estimated GFR Random Glucose Calcium Prot Corrected Calcium Magnesium 1.0 L Total Bilirubin AST ALT Alkaline Phosphatase Total Protein Albumin Lipase Stl C.difficile Tox PCR Negative St C. diff Tox Epid 027 Negative 04/01/18 04/01/18 05:50 12:30 CBC w Diff Auto diff final WBC 6.8 RBC 2.45 L Hgb 8.6 L Hct 26.7 L MCV 109.0 H MCH 35.1 H MCHC 32.2 RDW 17.5 H Plt Count 130 L MPV 6.4 L Neut % (Auto) 65.8 Lymph % (Auto) 29.3 [place] % (Auto) 4.0 Eos % (Auto) 0.8 Baso % (Auto) 0.1 Neut # (Auto) 4.4 Lymph # (Auto) 2.0 [place] # (Auto) 0.3 Eos # (Auto) 0.1 Baso # (Auto) 0.0 WBC Differential . Differential Comment . Sodium 139 Potassium 3.0 L Chloride 105 D Carbon Dioxide 28.0 D Anion Gap 6 BUN 6 L Creatinine 0.40 L Estimated GFR Greater than 89 Random Glucose 77 Calcium 7.3 L* D Prot Corrected Calcium 8.1 L Magnesium Total Bilirubin 0.8 AST 98 H ALT 19 Alkaline Phosphatase 263 H Total Protein 5.7 L D Albumin 2.0 L D Lipase 212 Stl C.difficile Tox PCR St C. diff Tox Epid 027 Microbiology 03/31/18 14:45 Stool Enteric Pathogens (PCR) - Final Assessment and Plan - Assessment (1) Abdominal pain Code(s): R10.9 - Unspecified abdominal pain Status: Acute Plan: The multifactorial due to enteritis versus pancreatitis (2) Tachycardia Code(s): R00.0 - Tachycardia, unspecified Status: Acute Plan: Due to dehydration, continue IV hydration and follow-up clinically Continue telemetry (3) Tachypnea Code(s): R06.82 - Tachypnea, not elsewhere classified Status: Acute Plan: Multifactorial due to pain and nausea vomiting Continue with surveillance O2 as needed (4) Hypokalemia Code(s): E87.6 - Hypokalemia Status: Acute Plan: We will replace in follow-up (5) LFT elevation Code(s): R94.5 - Abnormal results of liver function studies Status: Acute Plan: Etiology may be related to alcohol CT abdomen pelvis (6) Alcohol dependency Code(s): F10.20 - Alcohol dependence, uncomplicated Status: Acute Plan: Patient multiple relapses Patient will continue with [facility] protocol Follow-up electrolytes She reports adherence with Aldactone and Lasix at home which we will resume when her blood pressure resolves (7) Diarrhea Code(s): R19.7 - Diarrhea, unspecified Status: Acute Plan: Etiology unclear Follow-up stool studies CT abd and pelvis pending. Patient with tachycardia and tachypnea and hypotension and may meet sepsis criteria empiric vanco - Plan Abdominal pain Possible early pancreatitis but lipase level resolved overnight CT did not show any evidence of pancreatitis Consider gastroenteritis, symptoms are now resolved Patient is hungry, will test on solid food today and advance diet as tolerated Hypokalemia, hypomagnesemia, hypocalcemia Follow levels and replace as needed LFT elevation Patient admits to increased alcohol use Alcoholism Likely to blame for her increased LFTs Patient takes Aldactone and Lasix at home Patient counseled to quit Continue CIWA protocol Diarrhea Now mostly resolved PCR for enteric pathogens was negative C. difficile toxin PCR was also negative Discontinue empiric vancomycin DVT prophylaxis Encourage ambulation (1) Abdominal pain Qualifiers: Abdominal location: upper abdomen, unspecified Qualified Code(s): R10.10 - Upper abdominal pain, unspecified
[2018-04-02] MEDS: Thiamine Inj 500 MG in Sodium Chlor 0.9% Inj 250 ML IV.SIG SCH ×2 (04:04→07:02)
[2018-04-02] MEDS: levETIRAcetam 250 MG Tablet PO SCH (04:05)
[2018-04-02 06:09] LABS: Baso % (Auto) 0.3 % (0.0-2.0); Eos # (Auto) 0.1 th/mm3 (0.0-0.4); Eos % (Auto) 1.6 % (0.0-4.0); Hematocrit 26.3 % (35.0-46.0); Hemoglobin 8.6 gm/dL (11.6-15.3); Lymph # (Auto) 2.2 th/mm3 (1.0-4.8); Lymph % (Auto) 26.9 % (9.0-44.0); Mean Corpuscular HGB Conc 32.8 % (32.0-36.0); Mean Corpuscular Volume 109.7 fL (80.0-100.0); Mean Platelet Volume 7.9 fL (7.0-11.0); Mono # (Auto) 0.3 th/mm3 (0.0-0.9); Neut # (Auto) 5.6 th/mm3 (1.8-7.7); Neut % (Auto) 67.2 % (16.0-70.0); Platelet Count 111 th/mm3 (150-450); Red Cell Distribution Width 17.1 % (11.6-17.2); White Blood Count 8.2 th/mm3 (4.0-11.0)
[2018-04-02 06:13] LABS: Chloride 110 meq/L (98-107); Potassium 3.8 meq/L (3.5-5.1); Sodium 140 meq/L (136-145)
[2018-04-02 06:22] LABS: Calcium 7.5 mg/dL (8.5-10.1)
[2018-04-02 06:23] LABS: Albumin 2.1 g/dL (3.4-5.0); Anion Gap 6 meq/L (5-15); Blood Urea Nitrogen 3 mg/dL (7-18); Carbon Dioxide 23.6 meq/L (21.0-32.0); Glucose,Random 71 mg/dL (74-106); Lipase 187 U/L (73-393)
[2018-04-02 06:24] LABS: Aspartate Aminotransferase 112 U/L (15-37); Glomerular Filtration Rate Greater Than 89 mL/min (>89)
[2018-04-02 06:26] LABS: Total Protein 6.1 g/dL (6.4-8.2)
[2018-04-02 06:27] LABS: Alanine Aminotransferase 20 U/L (10-53); Alkaline Phosphatase 281 U/L (45-117)
[2018-04-02 08:14] VITALS: BP 107/72; PULSE 85; RESP 18; TEMP 96.5; O2SAT 99
[2018-04-02] MEDS: Folic Acid 1 MG Tablet PO SCH (08:19)
[2018-04-02] MEDS ORDERED: Spironolactone 25 MG Tablet PO SCH (09:00)
--- NOTE | 2018-04-02 09:06 | P.DS ---
Date of admission: 03/31/18 11:52 Primary care physician: UNKNOWN Brief History from admission: This patient is a 38-year-old female with known history of alcohol dependency who comes in hospital with increased abdominal pain over the last 1-1/2 days. The pain is in the lower abdomen and radiating laterally. Is associated with nausea and vomiting which is nonbloody. Patient also complains of diarrhea starting last 24 hour hours. His loose watery diarrhea. She has a history of alcohol dependency but reports sobriety for 2 weeks up until the day before admission she had a binge of alcohol intake. She has not had any fevers or chills. She is frequently in the hospital for similar complaints. She does report adherence with her Keppra, Aldactone, Lasix and metoprolol. Notably she is tachycardic, hypotensive and tachypneic. Patient is recommended for further evaluation treatment due to abdominal pain with signs and symptoms of sepsis. DS: Diagnosis - Discharge Diagnosis (1) Abdominal pain Status: Acute (2) Tachycardia Status: Acute (3) Tachypnea Status: Acute (4) Hypokalemia Status: Acute (5) LFT elevation Status: Acute (6) Alcohol dependency Status: Acute (7) Diarrhea Status: Acute DS: Medications - Discharge Medications Prescriptions: levetiracetam [Keppra] 250 mg PO Q12H 30 Days #60 tab spironolactone 25 mg PO DAILY 30 Days #30 tab DS: Summary Hospital Course: 38-year-old female admitted for abdominal pain. Lipase was elevated on admission but resolved overnight with IV. The remaining diagnoses included infectious causes but all PCR evaluations for diarrhea were negative for any enteric pathogens including C. difficile. Her abdominal symptoms slowly improved, she was able to tolerate p.o. food and today is threatening to leave AMA. She states this is important that she gets her right now. Gastroenteritis is the most likely explanation for her presentation. She stable for discharge. - Time Spent with Patient Total time spent providing and/or coordinating discharge services: Less than 30 minutes - Quality: VTE Deep Vein Thrombosis/Pulmonary Embolism Present on Admission: No Exam Vital signs: Vital Signs 04/01/18 12:00 04/01/18 15:51 04/01/18 20:00 Temperature 97.3 F L 97.0 F L 97.3 F L Pulse Rate 87 85 99 H Respiratory Rate 16 16 16 Blood Pressure 102/57 L 100/56 L 114/73 Pulse Oximetry 99 100 99 04/02/18 00:00 04/02/18 04:00 04/02/18 08:00 Temperature 96.4 F L 97.6 F 96.5 F L Pulse Rate 82 86 85 Respiratory Rate 16 16 18 Blood Pressure 110/61 105/65 107/72 Pulse Oximetry 99 97 99 Intake & Output 04/01/18 04/02/18 04/02/18 18:59 06:59 18:59 Intake Total 3880 / 3880 2500 / 2500 1055 / 1055 Balance 3880 / 3880 2500 / 2500 1055 / 1055 Intake: IV 2920 / 2920 1000 / 1000 1055 / 1055 NS + KCl 20 mEq Inj 1,000 ML @ 1000 / 1000 1000 / 1000 800 / 800 100 mls/hr IV.CONT .Q10H FANNY Rx #:[id number] NS Inj 1,000 ML @ 100 mls/hr IV 1000 / 1000 .CONT .Q10H FANNY Rx#:[id number] Calcium Gluconate Inj 1 GM In 110 / 110 D5W Inj 100 ML @ 110 mls/hr IV. SIG ONCE ONE Rx#:[id number] Magnesium Sulfate 1 gm/D5W 100 100 / 100 ml Premix 100 ML @ 100 mls/hr IV.SIG ONCE ONE Rx#:[id number] KCl 20 mEq Premix Inj 20 meq In 200 / 200 100 ml @ 50 mls/hr IV.SIG Q2H FANNY Rx#:[id number] Thiamine Inj 500 MG In NS Inj 510 / 510 255 / 255 250 ML @ 62.5 mls/hr IV.SIG Q8H FANNY Rx#:[id number] Oral 960 / 960 1500 / 1500 Other: # Voids 5 4 Date of Last Bowel Movement 03/31/18 04/02/18 # Bowel Movements 0 Results Procedures completed during hospitalization: none Labs on day of discharge: Labs from last 24 hours 04/02/18 04/02/18 04/01/18 05:00 05:00 12:30 CBC w Diff Auto diff final Auto diff final WBC 8.2 6.8 RBC 2.40 L 2.45 L Hgb 8.6 L 8.6 L Hct 26.3 L 26.7 L MCV 109.7 H 109.0 H MCH 36.0 H 35.1 H MCHC 32.8 32.2 RDW 17.1 17.5 H Plt Count 111 L 130 L MPV 7.9 6.4 L Neut % (Auto) 67.2 65.8 Lymph % (Auto) 26.9 29.3 [place] % (Auto) 4.0 4.0 Eos % (Auto) 1.6 0.8 Baso % (Auto) 0.3 0.1 Neut # (Auto) 5.6 4.4 Lymph # (Auto) 2.2 2.0 [place] # (Auto) 0.3 0.3 Eos # (Auto) 0.1 0.1 Baso # (Auto) 0.0 0.0 WBC Differential . . Differential Comment . . Sodium 140 Potassium 3.8 D Chloride 110 H Carbon Dioxide 23.6 Anion Gap 6 BUN 3 L Creatinine 0.36 L Estimated GFR Greater than 89 Random Glucose 71 L Calcium 7.5 L Total Bilirubin 0.9 AST 112 H ALT 20 Alkaline Phosphatase 281 H Total Protein 6.1 L Albumin 2.1 L Lipase 187 - Impressions ITS Impressions Abdomen/Pelvis CT 03/31/18 11:28 CONCLUSION: 1. Hepatomegaly and borderline splenomegaly. Differential considerations include hepatic steatosis versus medical liver disease. 2. Near interval resolution of right-sided colitis since recent CT exam. Multiple nondilated fluid-filled loops of small bowel particularly in the left lower quadrant. This is nonspecific but may reflect developing adynamic ileus or enteritis. Overall, evaluation of the bowel is limited due to lack of IV and oral contrast. 3. Normal appendix. 4. Ancillary findings include nonobstructing 2 mm right renal calyceal calculus , sigmoid diverticulosis and IUD in place. Discharge Plan - Discharge Disposition Patient Disposition: 01 Discharge Home - Discharge Condition Condition: Stable - Discharge Order Discharge Orders: Discharge Order (Routine); Ordered 04/02/18 Ordered By: Darshan Wyman - Physicians Team Primary Care Provider: UNKNOWN, Attending Provider: Darshan Wyman
[2018-04-03] MEDS ORDERED: Thiamine Inj 500 MG in Sodium Chlor 0.9% Inj 500 ML IV.SIG SCH (09:00)
== END 2018-04-02 09:24 | disposition home or self-care (01) ==
LOC: PH3 08:24 → PHED 08:24 → PHEDA 08:24 → PH3 13:10
PROVIDERS: ADMIT Family Medicine; ATTEND Family Medicine

== ENCOUNTER 2018-08-05 23:41 | Inpatient (IN) ==
[2018-08-05] MEDS ORDERED: Sod Chloride 0.9% Inj 1,000 ML IV.SIG ONE (23:56)
[2018-08-05] MEDS ORDERED: Morphine Inj 4 MG/ML Vial IV.PUSH ONE (23:56)
--- NOTE | 2018-08-06 00:20 | ED ---
HPI General Chief Complaint: Nausea/Vomiting/Diarrhea Stated Complaint: vomiting Time Seen by Provider: 08/05/18 23:54 Source: patient Mode of arrival: ambulatory Limitations: no limitations History of Present Illness HPI narrative: Abdominal pain, history of pancreatitis with acute alcohol abuse complaint: Reports abdominal pain Onset (ago): hour(s) Pain Consistency: constant Location: Reports epigastric Severity: moderate Quality: Reports aching Radiation: Reports other (Back) Migration to: Reports no migration Relieving factors: nothing Exacerbating factors: other (Alcohol) Context: Denies foreign travel and recent surgery/procedure Associated symptoms: Reports vomiting; Denies fever and syncope Related Data Home Medications Medication Instructions Recorded Confirmed metoprolol tartrate 25 mg PO BID 03/31/18 08/05/18 levetiracetam 500 mg PO BID 07/16/18 08/05/18 spironolactone 25 mg PO DAILY 07/16/18 08/05/18 Allergies Allergy/AdvReac Type Severity Reaction Status Date / Time ciprofloxacin AdvReac Severe Seizures Verified 08/05/18 23:57 phenazopyridine AdvReac Severe Cramping Verified 08/05/18 23:58 Review of Systems ROS: all other systems reviewed are negative [facility] Medical History Medical History Fast heart beat (Acute) Irritable bowel syndrome (Acute) Pancreatitis, alcoholic, acute (Acute) Seizure (Acute) Ulcerative colitis (Acute) Social History Social History Substance History: No History of Abuse Second Hand Smoke Exposure: Yes Smoking Status: Current every day smoker Tobacco Type: Cigarettes How Often Do You Have a Drink Containing Alcohol: 4 or more times a week Recent Travel in [facility] within the Last 8 Weeks: No Recent Out of Country Travel within the Last 8 Weeks: No Immunization History Tetanus Immunization: Unsure Exam Narrative Exam Narrative: NONTOXIC, uncomfortable PERRL, EOMI, anicteric NO JVD NON LABORED RESPIRATIONS REGULAR RHYTHM SOFT TENDER epigastric, not actively vomiting PELVIS STABLE No CVA tenderness FROM EXTREMITIES NO LOWER EXTREMITY EDEMA FACIAL SYMMETRY STEADY GAIT, CLEAR SENTENCES AAOX3 Course Reevaluation(s) Reevaluation #1: Resting comfortably no new complaints. No signs of acute surgical abdomen dissection or airway compromise thien mckoy md to admit Time: 01:18 Initial Documented Vital Signs Temperature 99.0 F 08/05/18 23:47 Pulse Rate 116 H 08/05/18 23:47 Respiratory Rate 20 08/05/18 23:47 Blood Pressure 123/77 08/05/18 23:47 Pulse Oximetry 100 08/05/18 23:47 Last Documented Vital Signs Temperature 99.0 F 08/05/18 23:47 Pulse Rate 100 H 08/06/18 00:25 Respiratory Rate 18 08/06/18 00:48 Blood Pressure 131/92 H 08/06/18 00:25 Pulse Oximetry 99 08/06/18 00:25 Medical Decision Making MDM Narrative Medical Screen Exam Complete: Yes Emergency Medical Condition: Yes Lab Data Result diagrams: 08/06/18 00:05 08/06/18 00:05 POC Results POC Urine Results Negative Lab Results 08/06/18 08/06/18 Range/Units 00:05 00:05 CBC w Diff Slide review pending WBC 9.5 (4.0-11.0) th/mm3 RBC 3.41 L (4.00-5.30) mil/mm3 Hgb 10.1 L (11.6-15.3) gm/dL Hct 32.3 L (35.0-46.0) % MCV 94.9 (80.0-100.0) fL MCH 29.8 (27.0-34.0) pg MCHC 31.4 L (32.0-36.0) % RDW 19.6 H (11.6-17.2) % Plt Count 135 L D (150-450) th/mm3 MPV 7.9 (7.0-11.0) fL WBC Differential Manual diff final Seg Neuts % (Manual) 68 (16-70) % Band Neuts % (Manual) 3 (0-6) % Lymphocytes % (Manual) 20 (9-44) % Monocytes % (Manual) 9 H (0-8) % Abs Neuts (Manual) 6.7 (1.8-7.7) th/mm3 Differential Comment . Platelet Estimate Low L (Normal) Platelet Morphology Normal (Normal) Ovalocytes 1+ H (None) Sodium 136 (136-145) meq/L Potassium 3.5 (3.5-5.1) meq/L Chloride 101 (98-107) meq/L Carbon Dioxide 26.7 (21.0-32.0) meq/L Anion Gap 8 (5-15) meq/L BUN 5 L (7-18) mg/dL Creatinine 0.72 (0.50-1.00) mg/dL Estimated GFR Greater than 89 (>89) mL/min Random Glucose 95 (74-106) mg/dL Calcium 8.2 L (8.5-10.1) mg/dL Total Bilirubin 0.9 (0.2-1.0) mg/dL AST 176 H (15-37) U/L ALT 25 (10-53) U/L Alkaline Phosphatase 444 H (45-117) U/L Total Protein 8.8 H (6.4-8.2) g/dL Albumin 3.3 L (3.4-5.0) g/dL Lipase 7736 H (73-393) U/L Imaging Data Radiologist's impression: Abdomen X-Ray 08/06/18 00:01 CONCLUSION: 1. No acute abnormalities. 2. Intrauterine device. Discharge Plan Discharge Order Discharge Orders: ED Use Only Admit Order (Routine); Ordered 08/06/18 Ordered By: Apollo Grace Physicians Team ED Provider: Apollo Grace Primary Care Provider: Negro Quiles Rxs /Orders / Referrals /Forms Prescriptions: No Action spironolactone 25 mg Tablet 25 mg PO DAILY RF: 0 levetiracetam 250 mg Tablet For Suspension 500 mg PO BID RF: 0 metoprolol tartrate 25 mg Tablet 25 mg PO BID RF: 0 Discharge Interventions Interventions: Vital Signs Last Done: 08/06/18 00:25 Status ED Status: Pending Admission
[2018-08-06 00:21] LABS: Hematocrit 32.3 % (35.0-46.0); Hemoglobin 10.1 gm/dL (11.6-15.3); Mean Corpuscular HGB Conc 31.4 % (32.0-36.0); Mean Corpuscular Hemoglobin 29.8 pg (27.0-34.0); Mean Corpuscular Volume 94.9 fL (80.0-100.0); Mean Platelet Volume 7.9 fL (7.0-11.0); Platelet Count 135 th/mm3 (150-450); Red Blood Count 3.41 mil/mm3 (4.00-5.30); Red Cell Distribution Width 19.6 % (11.6-17.2); White Blood Count 9.5 th/mm3 (4.0-11.0)
[2018-08-06 00:24] LABS: Chloride 101 meq/L (98-107); Potassium 3.5 meq/L (3.5-5.1); Sodium 136 meq/L (136-145)
[2018-08-06 00:27] LABS: Calcium 8.2 mg/dL (8.5-10.1)
[2018-08-06 00:28] LABS: Albumin 3.3 g/dL (3.4-5.0); Anion Gap 8 meq/L (5-15); Blood Urea Nitrogen 5 mg/dL (7-18); Carbon Dioxide 26.7 meq/L (21.0-32.0); Glucose,Random 95 mg/dL (74-106)
[2018-08-06 00:31] LABS: Alanine Aminotransferase 25 U/L (10-53); Aspartate Aminotransferase 176 U/L (15-37); Glomerular Filtration Rate Greater Than 89 mL/min (>89)
[2018-08-06 00:32] LABS: Total Protein 8.8 g/dL (6.4-8.2)
[2018-08-06 00:33] LABS: Alkaline Phosphatase 444 U/L (45-117); Lipase 7736 U/L (73-393)
[2018-08-06 00:40] LABS: Lymphocytes 20 % (9-44); Monocytes 9 % (0-8)
[2018-08-06 00:41] LABS: Ovalocytes 1+; Platelet Morphology Normal (Normal)
--- NOTE | 2018-08-06 00:47 | XR ---
EXAM DATE: 08/06/2018 12:44 AM EST AGE/SEX: 38 years / Female INDICATIONS: Abdominal pain, 3 days. CLINICAL DATA: This is the patient's initial encounter. Patient reports that signs and symptoms have been present for 3 days and indicates a pain score of 8/10. MEDICAL/SURGICAL HISTORY: . Irritable bowel syndrome. Ulcerative colitis. Pancreatitis. Seizure . Tonsillectomy. COMPARISON: [facility] [place]. . FINDINGS: Supine and upright views of the abdomen were performed. The abdominal bowel gas pattern is normal. No air-fluid levels are seen. No abnormal masses, calcifications, or organomegaly is seen. The visualiz ed lower lungs are clear. No evidence of free intraperitoneal gas. The osseous structures are unremar kable. IUD device. CONCLUSION: 1. No acute abnormalities. 2. Intrauterine device. Electronically signed by: Gustavo Dennis MD Board Certified Radiologist 08/06/2018 12:45 AM EST
[2018-08-06 01:15] LABS: Clarity,Urine Clear (Clear); Glucose,Urine (UA) Negative (Negative); Leukocyte Esterase,Urine Negative (Negative); Nitrite,Urine Negative (Negative); Specific Gravity,Urine Greater/Equal 1.030 (1.002-1.035)
[2018-08-06 01:18] LABS: Bilirubin,Urine Negative (Negative); Color,Urine Amber (Yellw/Straw); Ictotest,Urine Negative (Negative)
[2018-08-06 01:20] LABS: Bacteria,Urine Occasional /hpf; RBC,Urine 0-3 /hpf (0-3); Squamous Epithelial Cell,Urine Greater than 10 /hpf (0-5); WBC,Urine 0-5 /hpf (0-5)
[2018-08-06] MEDS ORDERED: Haloperidol Inj 5 MG/ML Ampul IV.PUSH PRN (01:29)
[2018-08-06] MEDS ORDERED: LORazepam 1 MG Tablet PO PRN (01:29)
[2018-08-06] MEDS: Morphine Inj 4 MG/ML Vial IV.PUSH PRN ×6 (03:19→21:18)
[2018-08-06 05:20] LABS: Baso % (Auto) 0.2 % (0.0-2.0); Eos # (Auto) 0.1 th/mm3 (0.0-0.4); Eos % (Auto) 0.7 % (0.0-4.0); Hematocrit 25.8 % (35.0-46.0); Hemoglobin 8.1 gm/dL (11.6-15.3); Lymph # (Auto) 2.1 th/mm3 (1.0-4.8); Lymph % (Auto) 22.9 % (9.0-44.0); Mean Corpuscular HGB Conc 31.3 % (32.0-36.0); Mean Corpuscular Hemoglobin 29.4 pg (27.0-34.0); Mean Platelet Volume 7.7 fL (7.0-11.0); Mono # (Auto) 0.6 th/mm3 (0.0-0.9); Mono % (Auto) 6.2 % (0.0-8.0); Neut # (Auto) 6.3 th/mm3 (1.8-7.7); Platelet Count 86 th/mm3 (150-450); Red Blood Count 2.75 mil/mm3 (4.00-5.30); Red Cell Distribution Width 18.7 % (11.6-17.2); White Blood Count 9.1 th/mm3 (4.0-11.0)
[2018-08-06 05:25] LABS: Chloride 106 meq/L (98-107); Potassium 3.1 meq/L (3.5-5.1); Sodium 140 meq/L (136-145)
[2018-08-06 05:35] LABS: Anion Gap 10 meq/L (5-15); Blood Urea Nitrogen 5 mg/dL (7-18); Carbon Dioxide 24.5 meq/L (21.0-32.0); Glomerular Filtration Rate Greater Than 89 mL/min (>89); Glucose,Random 82 mg/dL (74-106)
[2018-08-06 05:47] LABS: Platelet Morphology Normal (Normal); RBC Morphology Normal (Normal)
[2018-08-06 05:48] LABS: Albumin 2.7 g/dL (3.4-5.0)
[2018-08-06] MEDS: Potassium Chlor 20 mEq Premix 20 MEQ/100 ML PIGGYBACK IV.SIG SCH ×2 (06:24→13:47)
[2018-08-06] MEDS ORDERED: Potassium Chlor 20 mEq Premix 20 MEQ/100 ML PIGGYBACK IV.SIG PRN ×2 (08:00)
[2018-08-06] MEDS ORDERED: Potassium Phosphate Inj 30 MMOL in Sodium Chlor 0.9% Inj 250 ML IV.SIG PRN (08:00)
[2018-08-06] MEDS ORDERED: Magnesium Sulfate Inj 4 GM in Sodium Chlor 0.9% Inj 92 ML IV.SIG PRN (08:00)
[2018-08-06] MEDS ORDERED: Sodium Phosphate Inj 30 MMOL in Sodium Chlor 0.9% Inj 250 ML IV.SIG PRN (08:00)
[2018-08-06] MEDS ORDERED: Potassium Chlor 40 mEq Premix 40 MEQ/100 ML PIGGYBACK IV.SIG PRN ×2 (08:00)
[2018-08-06] MEDS ORDERED: Potassium Chloride 25 MEQ Effervescent Tablet PO PRN (08:00)
[2018-08-06] MEDS ORDERED: Magnesium Oxide 400 MG Tablet PO PRN (08:00)
[2018-08-06] MEDS ORDERED: Potassium Phosphate 500 MG Soluble Tablet PO PRN ×2 (08:00)
[2018-08-06] MEDS ORDERED: Magnesium Sulfate Inj 2 GM in Sodium Chlor 0.9% Inj 96 ML IV.SIG PRN (08:00)
--- NOTE | 2018-08-06 12:07 | P.HPIM ---
History of Present Illness Primary Care Physician: NELSON Appiah Chief Complaint: abdominal pain. History of Present Illness: 38 yo F with h/o alcohol dependence, previous admission for acute pancreatitis, presented with 2 days of abdominal pain. Pain said to have been epigastric,sharp, radiating to back, associated with nausea but no vomiting. Her appetite has been poor due to pain. No diarrhea.No fever or chills. Patient report she has been taking 2 small bottles of liquor for the last 2 weeks. She has h/o heavy alcohol use, but cut down significantly after going for alcohol rehab. She is trying to stop drinking. No tremors or seizures. Due to worsening pain, patient decided to come to ER. On presentation to ER, patient had stable vitals, labs were significant for elevated lipase >7k , hypokalemia and hypocalcemia. Patient was admitted for management of acute pancreatitis. Inpatient Certification Inpatient Certification: I certify that the inpatient services were ordered in accordance with Medicare regulations governing the order. This includes certification that hospital inpatient services are reasonable and necessary and in the case of services not specified as inpatient-only under 42 CFR 419.22(n), that they are appropriately provided as inpatient services in accordance to with the 2-midnight benchmark under 43 CFR 412.3(e) Estimated Total Length of Stay (Days): 2 Plans for Post Hospital Care: Not yet determined [facility] Medical History Medical History Fast heart beat (Acute) Irritable bowel syndrome (Acute) Pancreatitis, alcoholic, acute (Acute) Seizure (Acute) Ulcerative colitis (Acute) Surgical History Surgical History History of tonsillectomy (Acute) Family History Family History Other DM2 (diabetes mellitus, type 2) Social History Social History Substance History: No History of Abuse Second Hand Smoke Exposure: No Smoking Status: Current every day smoker Tobacco Type: Cigarettes How Often Do You Have a Drink Containing Alcohol: 4 or more times a week Recent Travel in [facility] within the Last 8 Weeks: No Recent Out of Country Travel within the Last 8 Weeks: No Immunization History Tetanus Immunization: <5 Years Hx Influenza Vaccine This Season: Yes Medications and Allergies Allergies Allergy/AdvReac Type Severity Reaction Status Date / Time ciprofloxacin AdvReac Severe Seizures Verified 08/05/18 23:57 phenazopyridine AdvReac Severe Cramping Verified 08/05/18 23:58 Home Medications Medication Instructions Recorded Confirmed Type metoprolol tartrate 25 mg PO BID 03/31/18 08/05/18 History levetiracetam 500 mg PO BID 07/16/18 08/05/18 History spironolactone 25 mg PO DAILY 07/16/18 08/05/18 History Active Medications: Active Medications Flumazenil (Romazecon Inj) 0.2 mg IV.PUSH Q1M PRN PRN Reason: OVERSEDATION Folic Acid (Folic Acid) 1 mg PO DAILY FANNY Stop: 08/11/18 08:59 Haloperidol Lactate (Haldol Inj) 1 mg IV.PUSH Q15M PRN PRN Reason: for severe agitation Lactated Ringer's (Lr 1000 Ml Inj) 1,000 mls @ 100 mls/hr IV.CONT .Q10H FANNY Last Admin: 08/06/18 03:20 Dose: 100 mls/hr Potassium Chloride (Kcl 20 Meq Premix Inj) 20 meq in 100 mls @ 50 mls/hr IV.SIG Q2H PRN PRN Reason: For Potassium 3.3 - 3.5 mEq/L Potassium Chloride (Kcl 20 Meq Premix Inj) 20 meq in 100 mls @ 50 mls/hr IV.SIG Q2H PRN PRN Reason: For Potassium 2.8 - 3.2 mEq/L Magnesium Sulfate 2 gm/ Sodium (Chloride) 100 mls @ 50 mls/hr IV.SIG UNSCH PRN PRN Reason: For Magnesium 1.2 - 1.6 mg/dL Magnesium Sulfate 4 gm/ Sodium (Chloride) 100 mls @ 50 mls/hr IV.SIG UNSCH PRN PRN Reason: For Magnesium 0.9 - 1.1 mg/dL Potassium Chloride (Kcl 40 Meq Premix Inj) 40 meq in 100 mls @ 25 mls/hr IV.SIG UNSCH PRN PRN Reason: For Potassium 3.3 - 3.5 mEq/L Potassium Phosphate 30 mmol/ (Sodium Chloride) 260 mls @ 42 mls/hr IV.SIG UNSCH PRN PRN Reason: SEE LABEL COMMENTS Sodium Phosphate 30 mmol/ (Sodium Chloride) 260 mls @ 42 mls/hr IV.SIG UNSCH PRN PRN Reason: For Phosphorus < 2.5 mg/dL Potassium Chloride (Kcl 40 Meq Premix Inj) 40 meq in 100 mls @ 25 mls/hr IV.SIG Q2H PRN PRN Reason: For Potassium 2.8 - 3.2 mEq/L Lorazepam (Ativan) 1 mg PO Q4H PRN PRN Reason: for CIWA 8-10 Lorazepam (Ativan) 2 mg PO Q2H PRN PRN Reason: for CIWA 11-14 Lorazepam (Ativan Inj) 2 mg IV.PUSH Q2H PRN PRN Reason: for CIWA 11-14 Lorazepam (Ativan Inj) 2 mg IV.PUSH Q1H PRN PRN Reason: for CIWA 15-20 Lorazepam (Ativan Inj) 2 mg IV.PUSH Q15M PRN PRN Reason: for CIWA > 20 Lorazepam (Ativan Inj) 1 mg IV.PUSH Q4H PRN PRN Reason: for CIWA 8-10 Magnesium Oxide (Mag-Ox) 800 mg PO UNSCH PRN PRN Reason: For Magnesium 1.2 - 1.6 mg/dL Morphine Sulfate (Morphine Inj) 2 mg IV.PUSH Q3H PRN PRN Reason: pain 6-10 Last Admin: 08/06/18 10:10 Dose: 2 mg Multivitamins/Minerals (Theragran-M) 1 tab PO DAILY FANNY Stop: 08/11/18 08:59 Ondansetron HCl (Zofran Inj) 4 mg IV.PUSH Q6H PRN PRN Reason: NAUSEA OR VOMITING Last Admin: 08/06/18 07:39 Dose: 4 mg Potassium Bicarb/Potassium Chloride (K-Lyte Cl Eff) 50 meq PO UNSCH PRN PRN Reason: For Potassium 3.3 - 3.5 mEq/L Potassium Phosphate (K-Phos Original) 2,000 mg PO Q4H PRN PRN Reason: Phosphorus Less Than 2.5 mg/dL Potassium Phosphate (K-Phos Original) 2,000 mg PO UNSCH PRN PRN Reason: SEE LABEL COMMENTS Sodium Chloride (Ns Flush) 2 ml IV.FLUSH BID [facility] Last Admin: 08/06/18 07:40 Dose: 2 ml Sodium Chloride (Ns Flush) 2 ml IV.FLUSH PRN PRN PRN Reason: FLUSH AFTER USING IV ACCESS Thiamine HCl (Vitamin B1) 100 mg PO DAILY [facility] Physical Exam Vital signs: Last Vital Signs Temp 98.3 F 08/06/18 08:00 Pulse 90 08/06/18 08:00 Resp 19 08/06/18 08:00 BP 108/63 08/06/18 02:00 Pulse Ox 100 08/06/18 01:25 Intake & Output 08/04/18 08/05/18 08/06/18 08/07/18 06:59 06:59 06:59 06:59 Intake Total 1000 / 1000 0 / 0 Balance 1000 / 1000 0 / 0 Weight 38.9 kg Narrative: GENERAL: middle aged woman, not in distress HEENT:not pale,anicteric CARDIOVASCULAR: Regular rate and rhythm without murmurs, gallops, or rubs. RESPIRATORY: Clear to auscultation. Breath sounds equal bilaterally. No wheezes , rales, or rhonchi. GASTROINTESTINAL: Abdomen soft, non-tender, nondistended. Normal active bowel sounds MUSCULOSKELETAL: Extremities without clubbing, cyanosis, or edema. NEURO: Alert & Oriented x4 to person, place, time, situation. Moves all ext x4 Results Labs CBC & Chem 7: 08/06/18 04:25 08/07/18 05:52 Imaging Impressions Abdomen X-Ray 08/06/18 00:01 CONCLUSION: 1. No acute abnormalities. 2. Intrauterine device. Caprini VTE Risk Assessment Caprini VTE Risk Assessment: No/Low Risk (score <= 1) Caprini Risk Assessment Model: Point Value = 1 Point Value = 2 Point Value = 3 Point Value = 5 Age 41-60 Minor surgery BMI > 25 kg/m2 Swollen legs Varicose veins or History of unexplained or recurrent spontaneous Oral contraceptives or hormone replacement Sepsis (< 1 month) Serious lung disease, including pneumonia (< 1 month) Abnormal pulmonary function Acute myocardial infarction Congestive heart failure (< 1 month) History of inflammatory bowel disease Medical patient at bed rest Age 61-74 Arthroscopic surgery Major open surgery (> 45 min) Laparoscopic surgery (> 45 min) Malignancy Confined to bed (> 72 hours) Immobilizing plaster cast Central venous access Age >= 75 History of VTE Family history of VTE Factor V Leiden Prothrombin [id number] Lupus anticoagulant Anticardiolipin antibodies Elevated serum homocysteine Heparin-induced thrombocytopenia Other congenital or acquired thrombophilia Stroke (< 1 month) Elective arthroplasty Hip, pelvis, or leg fracture Acute spinal cord injury (< 1 month) Prophylaxis Regimen: Total Risk Factor Score Risk Level Prophylaxis Regimen 0-1 Low Early ambulation 2 Moderate Order ONE of the following: *Sequential Compression Device (SCD) *Heparin 5000 units SQ BID 3-4 Higher Order ONE of the following medications: *Heparin 5000 units SQ TID *Enoxaparin/Lovenox 40 mg SQ daily (WT < 150 kg, CrCl > 30 mL/min) *Enoxaparin/Lovenox 30 mg SQ daily (WT < 150 kg, CrCl > 10-29 mL/min) *Enoxaparin/Lovenox 30 mg SQ BID (WT < 150 kg, CrCl > 30 mL/min) AND/OR *Sequential Compression Device (SCD) 5 or more Highest Order ONE of the following medications: *Heparin 5000 units SQ TID (Preferred with Epidurals) *Enoxaparin/Lovenox 40 mg SQ daily (WT < 150 kg, CrCl > 30 mL/min) *Enoxaparin/Lovenox 30 mg SQ daily (WT < 150 kg, CrCl > 10-29 mL/min) *Enoxaparin/Lovenox 30 mg SQ BID (WT < 150 kg, CrCl > 30 mL/min) AND *Sequential Compression Device (SCD) Assessment and Plan Plan 38 yo with h/o alcohol dependence, acute pancreatitis presenting again with abdominal pain, found to have acute pancreatitis. Acute pancreatitis--alcohol induced. keep on clear liquid diet and advance as tolerate, pain control, supportive care with IV fluids. counseled patient on cessation of alcohol. Electrolyte imbalances-- -hypokalemia-replete as needed -hypocalcemia-replete as needed Seizure disorder-continue Levetiracetam DVT ppx--ambulate. H&P: Quality VTE Deep Vein Thrombosis/Pulmonary Embolism Present on Admission: No
[2018-08-06] MEDS: Multivitamin/Minerals Therapeutic Tablet PO SCH (13:46)
[2018-08-06] MEDS: Folic Acid 1 MG Tablet PO SCH (13:46)
[2018-08-06] MEDS: Calcium Carbonate 500 MG Tablet PO SCH (21:05)
[2018-08-07] MEDS: Morphine Inj 4 MG/ML Vial IV.PUSH PRN ×4 (00:30→09:33)
[2018-08-07 06:46] LABS: Alanine Aminotransferase 18 U/L (10-53); Albumin 2.4 g/dL (3.4-5.0); Alkaline Phosphatase 384 U/L (45-117); Anion Gap 7 meq/L (5-15); Aspartate Aminotransferase 144 U/L (15-37); Blood Urea Nitrogen 3 mg/dL (7-18); Calcium 7.6 mg/dL (8.5-10.1); Carbon Dioxide 28.9 meq/L (21.0-32.0); Chloride 97 meq/L (98-107); Glomerular Filtration Rate Greater Than 89 mL/min (>89); Glucose,Random 76 mg/dL (74-106); Potassium 3.6 meq/L (3.5-5.1); Sodium 133 meq/L (136-145); Total Protein 6.3 g/dL (6.4-8.2)
[2018-08-07] MEDS: Calcium Carbonate 500 MG Tablet PO SCH (08:25)
[2018-08-07] MEDS: Multivitamin/Minerals Therapeutic Tablet PO SCH (08:26)
[2018-08-07] MEDS: Folic Acid 1 MG Tablet PO SCH (08:26)
[2018-08-07 08:59] VITALS: RESP 15; O2SAT 100
[2018-08-07 12:31] VITALS: BP 118/62; PULSE 98; TEMP 98
--- NOTE | 2018-08-07 13:17 | P.DS ---
DS: Providers Date of admission: 08/06/18 01:15 Primary care physician: NELSON Appiah Brief History from admission: 38 yo F with h/o alcohol dependence, previous admission for acute pancreatitis, presented with 2 days of abdominal pain. Pain said to have been epigastric,sharp, radiating to back, associated with nausea but no vomiting. Her appetite has been poor due to pain. No diarrhea.No fever or chills. Patient report she has been taking 2 small bottles of liquor for the last 2 weeks. She has h/o heavy alcohol use, but cut down significantly after going for alcohol rehab. She is trying to stop drinking. No tremors or seizures. Due to worsening pain, patient decided to come to ER. On presentation to ER, patient had stable vitals, labs were significant for elevated lipase >7k , hypokalemia and hypocalcemia. Patient was admitted for management of acute pancreatitis. DS: Summary Patient was admitted to the medical floor for management of acute alcohol induced pancreatitis. She was placed on supportive care with pain medication, intravenous fluids, and bowel rest, initially being NPO and diet was advanced as tolerated when her pain improved. Electrolytes were replaced as needed. On the day of discharge pain had significantly improved and patient was able to tolerate soft diet. She was counseled to abstain from wean of alcohol which she has been working towards. Patient was prescribed for Oxycodone 5mg q6h prn on discharge(10 pills). Time Spent with Patient Total time spent providing and/or coordinating discharge services: Quality: VTE Deep Vein Thrombosis/Pulmonary Embolism Present on Admission: No Results Labs on day of discharge: Labs from last 24 hours 08/07/18 08/07/18 08/06/18 05:52 01:45 11:55 Sodium 133 L Potassium 3.6 Chloride 97 L D Carbon Dioxide 28.9 Anion Gap 7 BUN 3 L Creatinine 0.36 L Estimated GFR Greater than 89 POC Glucose 93 Random Glucose 76 Calcium 7.6 L Total Bilirubin 1.1 H AST 144 H ALT 18 Alkaline Phosphatase 384 H Total Protein 6.3 L D Albumin 2.4 L Lipase 3323 H Impressions ITS Impressions Abdomen X-Ray 08/06/18 00:01 CONCLUSION: 1. No acute abnormalities. 2. Intrauterine device. Discharge Plan Discharge Disposition Patient Disposition: Discharge Home Discharge Condition Condition: Stable Discharge Order Discharge Orders: Discharge Order (Routine); Ordered 08/07/18 Ordered By: Yifan Musa Discharge Details Anticipated Discharge Date: 08/07/18 Physicians Team Primary Care Provider: Negro Quiles Attending Provider: Yifan Musa Rxs /Orders / Referrals /Forms Prescriptions: New oxycodone 5 mg tablet 5 mg PO Q6H PRN (Reason: Acute pain) Qty: 10 RF: 0 Continue spironolactone 25 mg Tablet 25 mg PO DAILY RF: 0 levetiracetam 250 mg Tablet For Suspension 500 mg PO BID RF: 0 metoprolol tartrate 25 mg Tablet 25 mg PO BID RF: 0 Referrals: Negro Quiles PA [Primary Care Provider] - See Instructions Status ED Status: Left Department
--- NOTE | 2018-08-07 13:22 | P.PNIM ---
Subjective Interval history: abdominal pain is minimal, she tolerated liquid diet. Physical Exam Vital signs: Last Vital Signs Temp 98.0 F 08/07/18 12:00 Pulse 98 H 08/07/18 12:00 Resp 15 08/07/18 12:00 BP 118/62 08/07/18 12:00 Pulse Ox 100 08/07/18 12:00 Intake & Output 08/05/18 08/06/18 08/07/18 08/08/18 06:59 06:59 06:59 06:59 Intake Total 1000 / 1000 3200 / 3200 Balance 1000 / 1000 3200 / 3200 Weight 38.9 kg 39.9 kg Narrative: GENERAL: middle aged woman, not in distress HEENT:not pale,anicteric CARDIOVASCULAR: Regular rate and rhythm without murmurs, gallops, or rubs. RESPIRATORY: Clear to auscultation. Breath sounds equal bilaterally. No wheezes , rales, or rhonchi. GASTROINTESTINAL: Abdomen soft, non-tender, nondistended. Normal active bowel sounds MUSCULOSKELETAL: Extremities without clubbing, cyanosis, or edema. NEURO: Alert & Oriented x4 to person, place, time, situation. Moves all ext x4 Results Labs CBC & Chem 7: 08/06/18 04:25 08/07/18 05:52 Assessment and Plan Plan 38 yo with h/o alcohol dependence, acute pancreatitis presenting again with abdominal pain, found to have acute pancreatitis. Acute pancreatitis--alcohol induced. pain significantly improved. Advanced diet to soft which patient has tolerated well. liver enzymes trending down appropriately. Electrolyte imbalances-- -hypokalemia-resolved after repletion. -hypocalcemia-corrected calcium 8.4, close to normal. Seizure disorder-continue Levetiracetam Patient is clinically stable for discharge home this afternoon. Progress Note: Quality VTE Deep Vein Thrombosis/Pulmonary Embolism Present on Admission: No
== END 2018-08-07 14:18 | disposition home or self-care (01) ==
LOC: PHED 23:41 → PHEDA 08-06 01:15 → PHICU 08-06 02:06 → PH3 08-06 09:19
PROVIDERS: ADMIT Hospitalist; ATTEND Hospitalist